=== PATIENT | female | born 1950 | race Caucasian/White ===

== ENCOUNTER 2024-09-25 09:53 | Emergency (ER) | payer MEDICARE, SELFPAY ==
--- OUTSIDE RECORDS SUMMARY | 2024-09-25 10:02 | XMS_ITS | CONTINUITY OF CARE DOCUMENT ---
Author Name shirley watson Address Unknown Organization [facility] Address [id number] [place] [address] [address] [place] [address] Phone [phone] Care Team Providers Care Hereditary Cancer Program Coordinator Name Role Phone Kisha Mandel MD Unavailable [phone] Jaylin Simpson MD Unavailable Jaylin Simpson MD Unavailable [phone] PROBLEMS Condition Status Date Provider Notes PVD active Candy Maria De Jesus Dyslipidemia active Candy Maria De Jesus Hypertension active Candy Maria De Jesus Chest pain active Kisha Mandel MD Tobacco abuse active Kisha Mandel MD Abnormal stress nuclear scan active Aram Mandel MD SOB active Kisha Mandel MD Family History of Hypertension: active ? Tosha Mandel MD ENCOUNTERS Date Type Provider Location Encounter Diag nosis - In-person encounter Office Visit Kisha Mandel MD [facility] Chest pain - In-person encounter Office Visit Kisha Mandel MD [facility] Family History of Hypertension:SOBAbno rmal stress nuclear scanTobacco abuse VITAL SIGNS Date Observation Value Provider Body Mass Index (Ratio) 25.60 kg/m2 Tosha Mandel MD blood pressure, diastolic 70 mm[Hg] Sushma Garza blood pressure, systolic 166 mm[Hg] Naya Garza oxygen saturation, oximetry 94 % Janae Garza respiratory rate E&M 20 /min Glory Garza pulse rate 72 /min Janae toussaint weight E&M 140 [lb_av] Janae toussaint height E&M 62 [in_i] Janae toussaint blood pressure, diastolic, left arm 70 mm [Hg] Sendy O'Brent blood pressure, systolic, left arm 140 mm [Hg] Sendy [facility] blood pressure, diastolic, right arm 70 m m[Hg] Sendy [facility] blood pressure, systolic, right arm 120 m m[Hg] Sendy O'[facility]rent blood pressure, diastolic 70 mm[Hg] [facility] [place] blood pressure, systolic 140 mm[Hg] Naya [facility] [place] pulse rate 74 /min Sendy O'[facility] oxygen saturation, oximetry 97 % Sendy O'[facility] respiratory rate E&M 16 /min Sendy O'[facility] Body Mass Index (Ratio) 25.79 kg/m2 [facility] O'[place] weight E&M 141 [lb_av] [facility]y [place] height E&M 62 [in_i] [facility]y [facility] ALLERGIES Allergy Name Onset Date Reaction Criticality Status ANCEF Low Criticality active DEMEROL Low Criticality active HISTORY OF MEDICATION USE Medication Status Instructions Dates Provider Indications Com ments RANEXA 500 MG ORAL TABLET EXTENDED RELEASE 12 HOUR active ONE TAB. TWICE DAILY for chronic angina Kisha Mandel MD NITROSTAT 0.4 MG SUBLINGUAL TABLET SUBLINGUAL active one tab prn Kisha Mandel MD SYMBICORT 160-4.5 MCG/ACT INHALATION AEROSOL active 1 puff twice daily Sendy O'[facility]rent CRANBERRY CAPSULE active once daily Sendy [facility] VENTOLIN HFA 108 (90 Base) MCG/ACT INHALATION AEROSOL SOLUTION active 2 puffs every 4-6 hours Sendy [facility] CLONAZEPAM 1 MG ORAL TABLET active 1.5 mg at bedtime Sendy [facility] METAXALONE TABLET active four times daily Sendy [facility]ta'N eal ASPIRIN ADULT LOW DOSE 81 MG ORAL TABLET DELAYED RELEASE active One Tab By Mouth Daily [facility]y [facility] METHOTREXATE 2.5 MG ORAL TABLET active five tab every saturday [facility] MORPHINE SULFATE 15 MG ORAL TABLET active twice daily [facility] METOPROLOL TARTRATE 25 MG ORAL TABLET active half tab twice daily Kisha Mandel MD PAROXETINE HCL 20 MG ORAL TABLET active once daily Sendy [place] ATORVASTATIN CALCIUM 20 MG ORAL TABLET active once daily Sendy Oconnor SOCIAL HISTORY Date Observation Value Provider smoking/tobacco cess ation, patient education and counseling yes Kisha Mandel MD social history E&M S moking History: Karol rico currently smokes every day. Karol rico has been counseled to quit. Kisha Mandel MD social history reviewed E&M revi ewed - no changes required Kisha Mandel MD smoking history, tot al pack/day 1 Janae Garza smoking, date started 1964 HermelindaJacek handy Garza smoking history, tot al pack/year 53 Janae Garza cigarette use yes Janae Myers cristy smoking status Current every day smoker Chi Garza smoking history, tot al pack/year 52 Francia Harris RN social history E&M S moking History: Karol rico currently smokes every day. Kisha Mandel MD social history reviewed E&M revi ewed - no changes required Kisha Mandel MD smoking, date started 1965 Sendy Oconnor cigarette use yes Sendy [place]'Brent smoking status Current every day smoker Chi Oconnor FAMILY HISTORY Family Member Condition Full Sister Family History Sharlene skaggs Cancer: Mother Family History of Hy pertension: INSURANCE PROVIDERS Payer name Policy type / Coverage type Florina red libertarian ID [facility] [id number] Other [id number] [place] MEDICARE PART B Medicare [id number] ADVANCE DIRECTIVES Name Date DISCUSSED - NO DECISION MADE TREATMENT PLAN Date Name Performer Cardiology:Advised t o stop smoking. Kisha Mandel MD Cardiology:As per jennifer méndez, she has a left illiac stenosis. She had a previous stent placed with in stent stenosis as well as 40% stenosis to the right illiac. Had fempop bypass done approximately 6 months ago and denies of any symptoms of claudication. She still smokes. Kisha Mandel MD Cardiology:Continues on Atorvastatin. Kisha Mandel MD Cardiology:BP today: 166/70 P rior BP: 140/70 (02/10/2016) M etoprolol tartrate 25 mg one tab daily changed to 1/2 tab twice daily. Kisha Mandel MD Cardiology:She exper iences left sided chest pains intermittently which usually resolves. I have given her a nitro to use when she experiences these symptoms and I have also given her Ranexa 500 mg po twice a day to see if this prevents her from having chest pains. She did have a stress test which did show a small area of reversible apical ischemia. If she continues to have symptoms we will arrange for her to have a cardiac cath. Kisha Mandel MD Cardiology:Advised to stop smoki ng. Kisha Mandel MD Cardiology:As per jennifer méndez, she has a left illiac stenosis. She had a previous stent placed with in stent stenosis as well as 40% stenosis to the right illiac. Surgery for PVD is planned. Kisha Mandel MD Cardiology:Blood pressure contro l is satisfactory. Kisha Mandel MD Cardiology:Likely COPD from long standing tobacco abuse. Kisha Mandel MD Cardiology:Continues on Atorvast atin. Kisha Mandel MD Cardiology:The patie nt is planned to undergo fempop bypass surgery. As part of risk stratification, she underwent a stress test which shows a small apical reverisble ischemia. The cardiac cath was discussed with this patient. The option of undergoing surgery with the knowledge that the stress test is abnormal and the risk is going to be higher was also discussed. She is going to make a decision and let us know. If she opts for cardiac cath, this will be arranged. The risks and benefits of the procedure, including but not limited the risk of heart attack, , stroke, bleeding, kidney failure, and loss of limb as well as the alternative of continued medical therapy, stress testing or bypass surgery were discussed with the patient and any present family members and the patient wishes to proceed with cardiac cath and stenting. The patient and family had opportunity to discuss this with us. Written material including informed consent was given out. Kisha Mandel MD HISTORY OF PROCEDURES Procedure Date Procedure Name Provider Procedure Notes S tatus EKG Kisha Mandel MD complet ed SNOMED-CT: 181843209709434 Current Medications Documented Kisha Mandel MD completed SNOMED-CT: 48618939 Physical Exam, Performed: Pulse Exam of Foot Kisha Mandel MD completed EKG Kisha Mandel MD complet ed SNOMED-CT: [id number] Current Medications Documented Kisha Mandel MD completed Stress EKG Juarez Morales MD completed Regadenoson, 4 units Juarez Morales MD completed Cardiolite, 2 units Juarez Morales MD completed SPECT Images Juarez Morales MD completed
[2024-09-25 10:06] VITALS: BP 146/59; PULSE 82; RESP 18; TEMP 36.6; O2SAT 100
--- NOTE | 2024-09-25 10:06 | ED.EAR ---
HPI - Ear Problem General Chief complaint: Ear Stated complaint: ear ache/sinus Time Seen by Provider: 09/25/24 10:07 Source: patient and RN notes reviewed Mode of arrival: ambulatory Limitations: no limitations History of Present Illness HPI Narrative: 74-year-old female presents concern for intermittent sinus congestion, ear pain, and postnasal drip, cough, headache for several months. Reports it has gotten worse in the last 4-5 days. She has been taking antihistamines without relief. She has history of COPD, she has not needed her inhaler any more than usual. She denies fever, body aches, chills, sweats. MD Complaint: ear pain Related Data Home Medications ?Medication ?Instructions ?Recorded ?Confirmed ?Last Taken ?Type albuterol sulfate 90 mcg/actuation inhalation 09/25/24 Unknown History aerosol inhaler amlodipine 10 mg tablet mg 09/25/24 Unknown History aspirin 325 mg capsule 325 mg PO DAILY 09/25/24 Unknown History atorvastatin 80 mg tablet mg 09/25/24 Unknown History budesonide 160 mcg-glycopyr 9 inh inhalation 09/25/24 Unknown History mcg-formot 4.8 mcg/actuation HFA inhaler (Breztri Aerosphere) cephalexin 250 mg capsule mg 09/25/24 Unknown History escitalopram oxalate 10 mg tablet mg 09/25/24 Unknown History ferrous sulfate 325 mg (65 mg mg 09/25/24 Unknown History iron) tablet gabapentin 100 mg capsule mg 09/25/24 Unknown History lisinopril 10 mg tablet mg 09/25/24 Unknown History omeprazole 40 mg capsule,delayed mg 09/25/24 Unknown History release oxybutynin chloride 5 mg tablet mg 09/25/24 Unknown History tizanidine 4 mg tablet mg 09/25/24 Unknown History trazodone 50 mg tablet mg 09/25/24 Unknown History Allergies Allergy/AdvReac Type Severity Reaction Status Date / Time meperidine (From Demerol) Allergy Unknown Unknown Verified 09/25/24 10:17 varenicline (From Chantix) Allergy Unknown Hallucinati Verified 09/25/24 10:17 ng Review of Systems Review of Systems: CONSTITUTIONAL: Denies malaise, chills, sweats, or fever. EYES: Denies visual changes, redness, or discharge. ENT: Reports rhinorrhea, congestion. Reports right ear pain CARDIOVASCULAR: Denies chest pain, palpitations, or edema. RESPIRATORY: Reports cough. Denies dyspnea. GASTROINTESTINAL: Denies abdominal pain, nausea, vomiting, diarrhea SKIN: Denies rash or itching. MUSCULOSKELETAL: Denies myalgia. NEUROLOGIC: Denies headache. All systems reviewed & are unremarkable except as noted in HPI and below PMFSH Comments At time of signature, agree with nursing past medical, surgical, social and family history. There is no relevant family history pertinent to the presenting complaint Exam Narrative: GENERAL: Well-appearing, well-nourished, and in no acute distress. HEAD: Normocephalic EYES: PERRLA, conjunctivae clear ENT: Nares clear, turbinates edematous, clear discharge. Mucous membranes moist. TM pearly ward with dull light reflex bilaterally; no tragal tenderness. Oropharynx not erythematous without lesions. Tonsils not enlarged and without exudate, no drooling, no hoarseness, no trismus, uvula midline. NECK: Supple. No lymphadenopathy CHEST: Clear to auscultation, breath sounds equal. No wheezing, rhonchi, rales, or stridor. No respiratory distress, speaks in full sentences. HEART: Regular rate and rhythm. No murmur heard. SKIN: Warm, dry, no rash. NEURO: Alert and oriented x3. PSYCH: Normal mood and affect Course Course Emergency Course: Patient is aware of diagnosis, understands and agrees to treatment plan. Anticipatory guidance given. Patient agrees to follow-up as directed and is aware of reasons to seek care at the emergency department. Portions of this record may have been created with voice recognition software Level of Care: Express Care Visit Vital Signs Vital signs: Reviewed. Medical Decision Making [facility] Narrative Medical decision making narrative: I evaluated this in the express care. History is obtained from patient who is an independent historian and physical exam was performed.? Available medical records were reviewed. ? Exam findings and relevant testing show no acute concerns or changes; patient is non-toxic appearing and is in no distress. Differential diagnosis considered: Archuleta virus, strep pharyngitis, allergic rhinitis, upper respiratory tract infection, sinusitis, rhinosinusitis, nasopharyngitis. viral pharyngitis, otitis media, otitis externa, otitis effusion, cerumen impaction, foreign body. Exam findings show no acute concerns or changes; patient is non-toxic appearing and is in no distress. Patient is appropriate for outpatient treatment and follow-up. ? Differential diagnosis and treatment plan were discussed with the patient. Patient agrees with discussion and after shared medical decision making agrees with plan of care. All questions were answered to the patient's satisfaction. Patient is appropriate for outpatient treatment and follow-up. Critical Care Time Critical Care Time Critical Care Time: No Discharge Plan Discharge Clinical Impression: Sinusitis Patient Disposition: Home Condition: Stable Instructions: Antibiotic Form, Sinusitis (ED) Additional Instructions: Take medication as directed Nonprescription pain medications, such as acetaminophen (eg, Tylenol) or ibuprofen (eg, Motrin, Advil), are recommended for pain. Flushing the nose and sinuses with a saline solution several times per day has been proven to decrease pain associated with congestion and shorten the duration of symptoms. Nasal steroids (such as Flonase, 2 sprays in each nostril daily) can help to reduce swelling inside the nose, usually within two to three days. These drugs have few side effects and relieve symptoms in most people. Oral decongestants (pseudoephedrine and phenylephrine) may be helpful if you have associated symptoms of ear pain or fullness. Nasal decongestant sprays, including oxymetazoline (Afrin) and phenylephrine (Rolly-Synephrine), can be used to temporarily treat congestion. However, these sprays should not be used for more than two to three days due to the risk of rebound congestion (when the nose becomes congested constantly unless the medication is used repeatedly), possible addiction, and long-term consequences of frequent use, including persistent nasal dryness and crusting, which is very difficult to treat once it has developed. Medications to thin secretions (such as guaifenesin) may help to clear mucus. Please follow-up with your primary care doctor in the next 1-2 days. If you cannot follow-up with your primary care doctor please go to the ED for any urgent issues. If you have any worsening of symptoms or any other concerns please go to the ED immediately. Patient Language: Albanian Prescriptions: New methylprednisolone [Medrol (Koffi)] 4 mg tablets,dose pack See Rx Instructions .ROUTE .COMPLEX Qty: 21 0RF Rx Instructions: orally per package directions amoxicillin-pot clavulanate 875-125 mg tablet 1 tablet PO Q12H 10 Days Qty: 20 0RF No Action atorvastatin 80 mg tablet trazodone 50 mg tablet tizanidine 4 mg tablet cephalexin 250 mg capsule omeprazole 40 mg capsule,delayed release(DR/EC) amlodipine 10 mg tablet ferrous sulfate 325 mg (65 mg iron) tablet lisinopril 10 mg tablet gabapentin 100 mg capsule albuterol sulfate 90 mcg/actuation HFA aerosol inhaler INHALATION oxybutynin chloride 5 mg tablet escitalopram oxalate 10 mg tablet Breztri Aerosphere 160-9-4.8 mcg/actuation HFA aerosol inhaler INHALATION aspirin 325 mg capsule 325 mg PO DAILY Follow-up/Referrals: Soledad,Ravindra Aguilar MD [Primary Care Provider] - Time of Disposition: 10:48
--- OUTSIDE RECORDS SUMMARY | 2024-09-25 10:07 | XMS_ITS | CONTINUITY OF CARE DOCUMENT ---
Author Name shirley watson Address Unknown Organization [facility] Address [address] [place] [address] [address] [place] [address] Phone [phone] Care Team Providers Care Electronic Security Specialist Name Role Phone Kisha Mandel MD Unavailable Jaylin Simpson MD Unavailable [phone] Jaylin Simpson MD Unavailable [phone] PROBLEMS Condition Status Date Provider Notes PVD active Candy Maria De Jesus Dyslipidemia active Candy Maria De Jesus Hypertension active Candy Maria De Jesus Family History of Hypertension: active ? Tosha Mandel MD SOB active Kisha Mandel MD Abnormal stress nuclear scan active Aram Mandel MD Tobacco abuse active Kisha Mandel MD Chest pain active Kisha Mandel MD ENCOUNTERS Date Type Provider Location Encounter Diag nosis - In-person encounter Office Visit Kisha Mandel MD [facility] Chest pain - In-person encounter Office Visit Kisha Mandel MD [facility] Family History of Hypertension:SOBAbno rmal stress [...] Sendy O'[facility]rent blood pressure, diastolic 70 mm[Hg] [facility] blood pressure, systolic 140 mm[Hg] Naya [facility] O'[place] pulse rate 74 /min Sendy O'[facility]rent oxygen saturation, oximetry 97 % Sendy O'[facility] respiratory rate E&M 16 /min Sendy O'[facility] Body Mass Index (Ratio) 25.79 kg/m2 [facility] O'[place] weight E&M 141 [lb_av] Sendy O'Brent [...] Policy type / Coverage type Florina red constitution party ID [facility] [id number] Other [id number] [place] MEDICARE PART B Medicare [id number] ADVANCE DIRECTIVES Name Date DISCUSSED - NO [...] Provider Procedure Notes S tatus EKG Kisha Mnadel MD complet ed SNOMED-CT: [id number] Current Medications Documented Kisha Mandel MD completed SNOMED-CT: [id number] Physical Exam, Performed: Pulse Exam of Foot Kisha Mandel MD completed EKG Kisha Mandel MD complet ed SNOMED-CT: [id number] Current Medications Documented Kisha Mandel MD completed Stress EKG Juarez Morales MD completed Regadenoson, 4 units Juarez Morales MD completed Cardiolite, 2 units Juarez Morales MD completed SPECT Images Juarez Morales MD completed
--- OUTSIDE RECORDS SUMMARY | 2024-09-25 10:07 | XMS_ITS | Encounter Summary ---
Author Organization [facility] Healthcare Address [address] [place] [address] Care Team Providers Care Adjusto Writer Operator Name Role Phone Ravindra Rowe MD Primary Care Provider Darrion Griffith MD Unavailable Ronen Nunes MD Unavailable [phone] Liza Major NP Unavailable [phone] Juarez Pulido MD Unavailable [phone] Shane Hays MD Unavailable [phone] Migue Reid MD Unavailable [phone] Carlos Amaya MD Unavailable Carine Khan RN Unavailable Sophy Bravo CMA Unavailable [phone] Sujata Noonan MA Unavailable Cintia Carroll RN Unavailable Thao Abdullahi MA Unavailable Fiorella Oscar MD Unavailable [phone] Encounter Details Date Type Department Care Team (Late st Contact Info) Description 07/15/2020 Telephone [facility] [address] [place] [address] [place], [place] Social History Tobacco Use Types Packs/Day Years Used Date Smoking Tobacco: Heavy Smoker Cigarettes 1.5 50 Smokeless Tobacco: Never Comments:Smoking History Pac ks/day: 1 Packs,, pmd, TO ASSIST. Alcohol Use Standard Drinks/Week Comments No 0 (1 standard drink = 0.6 oz pur e alcohol) Social Connection and Isolat ion Panel [NHANES] Answer Date Recorded In a typical week, how many times do you talk on the phone with family, friends, or neighbors? More than three times a week 02/05/2020 How often do you get togethe r with friends or relatives? More than three times a week 02/05/2020 Attends [employer] Services Not on file 02/04 Active Member of Clubs or Organizations Not on f ile 02/05/2020 Attends Club or Organization Meetings Not on rd e 02/05/2020 Are you , , di vorced, , never , or living with a partner? 02/05/2020 Overall Financial Resource Strain (CARDIA) Answe r Date Recorded How hard is it for you to pa y for the very basics like food, housing, medical care, and heating? Somewhat hard 02/05/2020 PHQ-2 Answer Date Recorded PHQ-2 Total Score (If total score is 3 or more points, staff should administer the PHQ-9) 6 07/15/2020 [facility] - Occupational Stress Questionnaire Answer Date Recorded Do you feel stress - tense, restless, nervous, or anxious, or unable to sleep at night because your mind is troubled all the time - these days? Rather much 02/05/2020 Exercise Vital Sign Answer Date Recorde d On average, how many days pe r week do you engage in moderate to strenuous exercise (like a brisk walk)? 0 days Minutes of Exercise per Session Not on file 02/05/2020 Hunger Vital Sign Answer Date Recorded Within the past 12 months, y ou worried that your food would run out before you got the money to buy more. Never true 02/05/20 20 Within the past 12 months, t he food you bought just didn't last and you didn't have money to get more. Never true 02/05/2020 PRAPARE - Transportation Answer Date Re corded In the past 12 months, has l ack of transportation kept you from medical appointments or from getting medications? No 01/18 In the past 12 months, has l ack of transportation kept you from meetings, work, or from getting things needed for daily living? No 02/05/2020 Education Answer Date Recorded What is the highest level of school you have completed or the highest degree you have received? 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 file Not on file documented as of this encounter Plan of Treatment Not on file documented as of this encounter Visit Diagnoses Not on filedocumented in this encounter Additional Health Concerns Infection Onset Date Last Indicated Resolved Time COVID: Suspected 02/15/2023 02/16/2023 02/16/2023 1:17 AM CDT COVID: Suspected 02/20/2023 02/20/2023 02/20/2023 8:33 PM CDT documented as of this encounter Care Teams Adjusto Writer Operator Relationship Specialty Start Date End Date Ravindra Rowe MD PCP - General Family Medicine 11/14/16 [place] [address] [place] [address] Surgeon General Surgery 09/30/17 [place] [address] [place] [address] Consulting Physician Cardiology 06/24/18 Liza Major, LESLEY [address] [place] [address] Nurse Practitioner Nurse Practitioner 07/08/18 [place] [address] [place] [address] Consulting Physician Cardiovascular Disease 07/28/18 Shane Hays MD [address] [facility] [address] [place] [address] Consulting Physician Rheumatology 02/18/19 12/31/23 Migue Reid MD [address] [facility] [address] [place] [address] Consulting Physician Urology 03/16/20 Carlos Amaya MD [address] [facility] [address] [place] [address] Consulting Physician Nephrology 03/16/20 Carine Khan RN [address] [place] [address] [address] [place] [address] Range Management Specialist 09/28/20 10/24/20 Sophy Bravo CMA [address] [place] [address] [address] [place] [address] ACO Care Sole Conforming Machine Operator 02/20/23 02/20/23 Sujata Noonan MA [address] [place] [address] [address] [place] [address] ACO Care Sole Conforming Machine Operator 10/21/23 10/23/23 Cintia Carroll RN [address] [place] [address] [address] [place] [address] Range Management Specialist 01/14/24 02/13/24 Thao Abdullahi MA [address] [place] [address] [address] [place] [address] ACO Care Sole Conforming Machine Operator 03/16/24 03/17/24 [place] [address] [phone] Referring Physician Preparation Center Coordinator 04/20/24 documented as of this encounter
--- OUTSIDE RECORDS SUMMARY | 2024-09-25 10:07 | XMS_ITS | Clinical Summary ---
Author Organization [facility] Address [address] [place] [address] Care Team Providers Care Retail Selling Specialist Name Role Phone Phil Guerra MD Unavailable [phone] Edmund Buenrostro MD Unavailable [phone] Jeremie Tyson MD Unavailable [phone] Janine Watkins RN Unavailable [phone] Ravindra Rowe MD Primary Care Provider [phone] Source Comments [facility],non-owned Affiliates and Associated Physician Practices is amultiple site organization consisting of ambulatory clinics and hospital sitesin [place], [place], [place] and [place]. This disclosure is being madepursuant to the Care Everywhere program and may not contain all information available regarding this patient. Last updated 18.[facility] Allergies Active Allergy Reactions Criticality Noted Date Comments Cefazolin 12/22/2014 Meperidine Shortness of Breath High 12/22/2014 Per respiratory arrest Duloxetine Other,Rash Medium 04/04/2020 Tolerates SSRI Leflunomide Medium 10/25/2015 Varenicline Other Medium 09/28/2021 Hallucinations Medications * Be aware that medications may not be up to date on this document. Alwaysverify current medications with the patient. clonazePAM (KLONOPIN) 1 MG tablet Take 1.5 Tabs by mouth at bedtime 45 Tab 2 5 Active Acetaminophen- Codeine (TYLENOL WITH CODEINE #3 PO) Take by mouth 4 times daily as needed after meals/at bedtime Active Cranberry 600 MG Take 600 mg by mouth 2 times daily as needed Active PARoxetine (PAXIL) 20 MG tabletIndicati ons:PVD (peripheral vascular disease),Histo ry of TIA (transient ischemic attack) Take 2 (two) tablets by mouth at bedtime 6 Active methotrexate 2.5 MG tabletIndicati ons:PVD (peripheral vascular disease),Histo ry of TIA (transient ischemic attack) Take 6 (six) tablets by mouth every 7 days Every 7 days 6 Active Albuterol Sulfate (VENTOLIN HFA IN) Inhale 1 Puff by mouth every 6 hours as needed (SOB) Active HYDROcodone-ac etaminophen (NORCO) 5-325 MG tablet Take 1 Tab by mouth every 4 hours as needed for Pain 30 Tab 0 6 Active aspirin (ASPIRIN) 325 MG tablet Take 1 (one) tablet by mouth once daily Active TRAZODONE HCL PO Take 25 mg by mouth once daily 8 Active amLODIPine (NORVASC) 10 MG tablet Take 1 (one) tablet by mouth once daily 2 Active atorvastatin (LIPITOR) 80 MG tablet Take 1 (one) tablet by mouth at bedtime 2 Active cephalexin (KEFLEX) 250 MG capsule Take 1 (one) capsule by mouth once daily 2 Active estradiol (ESTRACE) 0.1 MG/GM vaginal cream INSERT 0.5 G INTO THE VAGINA 2 TIMES A WEEK . 2 Active BREO ELLIPTA 100-25 MCG/INH inhaler INHALE 1 PUFF DAILY RINSE MOUTH WITH WATER AFTER USE. DO NOT SWALLOW. 1 Active lisinopril (PRINIVIL; ZESTRIL) 20 MG tablet Take 1 (one) tablet by mouth once daily 2 Active nitroGLYCERIN (NITROSTAT) 0.4 MG tablet 1 Active oxybutynin (DITROPAN) 5 MG tablet Take 1 (one) tablet by mouth 2 times daily 2 Active predniSONE (DELTASONE) 5 MG tablet Take 2 (two) tablets by mouth as needed 2 Active rOPINIRole (REQUIP) 0.5 MG tablet Take 1 (one) tablet by mouth at bedtime 2 Active abatacept (ORENCIA) IV injection 250 (two hundred fifty) mg by Intravenous route every 30 days Active ferrous sulfate 325 (65 FE) MG tablet Take 1 (one) tablet by mouth daily with breakfast 4 Active escitalopram (Lexapro) 10 MG tablet Take 1 (one) tablet by mouth once daily 4 Active nystatin (Mycostatin) 513126 UNIT/ML suspension TAKE 5 ML (500,000 UNITS TOTAL) BY MOUTH 4 (FOUR) TIMES A DAY SWISH IN MOUTH AND SPIT OUT. 4 Active omeprazole (PriLOSEC) 40 MG capsule Take 1 (one) capsule by mouth once daily 4 Active tiZANidine (Zanaflex) 4 MG tablet TAKE 1 TABLET (4 MG TOTAL) BY MOUTH EVERY 8 (EIGHT) HOURS NEEDED FOR MUSCLE SPASMS 4 Active tocilizumab (Actemra) 162 MG/0.9ML auto-injector Inject 0.9 mL subcutaneously every 14 days 1.8 mL 2 4 Active Active Problems Problem Noted Date Diagnosed Date Stenosis of right carotid artery 07/24/2018 PVD (peripheral vascular disease) 10/25/2015 Hypokalemia 05/04/2015 Pulmonary infiltrate in left lung on chest x-ray 02/10/2015 Shortness of breath 02/02/2015 RA (rheumatoid arthritis) 11/02/2014 Fibromyalgia 11/02/2014 High risk medications (not anticoagulants) long- term use 11/02/2014 COPD with asthma Arthritis Smoker Resolved Problems Problem Noted Date Diagnosed Date Resolved Date Cough 02/02/2015 03/02/2015 Immunizations Immunization Administration Dates Next Due COVID BATOOL PRIMARY 18+YR 07/23/2020 Covid Pfizer primary monovalent 12+ yr 0.3mL Pur ple cap 03/25/2021 FLU VACCINE QUAD IIV4 PF ID 04/18/2015 Family History Medical History Relation Name Comments Arthritis - Osteo Brother Asthma Brother Brain Tumor Brother Cancer - Lung Brother Arthritis - Osteo Father Cancer Father Hypertension Father Arthritis - Osteo Mother Asthma Mother Cancer Mother Hypertension Mother Arthritis - Osteo Sister Fibromyalgia Sister Relation Name Status Comments Brother Father Mother Sister Alive Social History Tobacco Use Types Packs/Day Years Used Date Smoking Tobacco: Every Day Cigarettes 1 45.8 Started: 05/03/1970; Last attempted to quit: 02/22/2016 Smokeless Tobacco: Never Tobacco Cessation:Ready to Q uit: Not Asked; Counseling Given: Not Answered Alcohol Use Standard Drinks/Week Comments No 0 (1 standard drink = 0.6 oz pur e alcohol) PHQ-2 Answer Date Recorded Patient Health Questionnaire-2 Score 0 03/25/2024 Comments No Sex and Gender Information Value Date Recorded Sex Assigned at Not on file Legal Sex Female 11:42 AM CDT Gender Identity Not on file Sexual Orientation Not on file Occupation Industry Job Start Date Job End Date Disabled Not on file Not on file Not on file Last Filed Vital Signs Vital Sign Reading Time Taken Comments Blood Pressure 140/70 03/25/2024 11:49 AM WELFARE ELIGIBILITY INTERVIEWER Pulse 74 03/25/2024 11:49 AM WELFARE ELIGIBILITY INTERVIEWER Temperature 36.7 C (98 F) 12/15/2019 1:09 PM CDT Respiratory Rate 24 12/15/2019 2:31 PM CDT Oxygen Saturation 97% 03/25/2024 11:49 AM WELFARE ELIGIBILITY INTERVIEWER Inhaled Oxygen Concentration 21% 04/30/2015 5 :26 PM WELFARE ELIGIBILITY INTERVIEWER Weight 47.2 kg (104 lb) 03/25/2024 11:49 AM WELFARE ELIGIBILITY INTERVIEWER Height 157.5 cm (5' 2 ) 03/25/2024 11:49 AM WELFARE ELIGIBILITY INTERVIEWER Body Mass Index 19.02 03/25/2024 11:49 AM WELFARE ELIGIBILITY INTERVIEWER Plan of Treatment Health Maintenance Due Date Last Done Comments COLOGUARD (AGES 45-75) - COLON CA SCREENING [address] COLONOGRAPHY - COLON CA SCREENING 1950 FIT - COLON CA SCREENING 1950 FLEX SIG - COLON CA SCREENING 1950 DTAP/TDAP/TD VACCINES (1 - Tdap) 1970 PNEUMOCOCCAL VACCINE 50+ (1 of 2 - PCV) 1970 ZOSTER VACCINE (1 of 2) 1970 Respiratory Syncytial Virus (RSV) Vaccine Pt: or over 60 yrs (1 - Risk 60-74 years 1-dose series) 2011 COVID-19 VACCINE (3 - season) 2024 03/25/2021, 07/23/2020 DEPRESSION SCREENING 05/20/2024 03/25/2024 MEDICARE AWV CALENDAR YEAR 2024 INFLUENZA VACCINE (Season Ended) 2025 02/18/2019, 05/23/2017, 04/18/2015, Additional history exists LUNG CANCER SCREENING 03/05/2025 03/05/2024 , 01/16/2023, 02/17/2021, Additional history exists MAMMOGRAM 03/05/2026 03/05/2024, 02/17, 10/31/2021, Additional history exists COLONOSCOPY - COLON CA SCREENING 10/12/2032 10/12/2022 Colorectal Cancer Screening 10/12/2032 BONE DENSITY TESTING Completed 03/05/2024, 01/01/2022, 07/19/2017, Additional history exists HEPATITIS C SCREENING Completed 04/01/2024 HEPATITIS B VACCINE Aged Out No longe r eligible based on patient's age to complete this topic HIB VACCINE Aged Out No longer eligi ble based on patient's age to complete this topic HPV VACCINE Aged Out No longer eligi ble based on patient's age to complete this topic MENINGOCOCCAL (Group B) VACCINE SHARED DECISION-MAKING Aged Out No longer eligible based on patient's age to complete this topic MENINGOCOCCAL GROUPS A/C/Y/W VACCINE Aged Out No longer eligible based on patient's age to complete this topic Medical Devices Implanted Type Area Trauma Director Device Identifier Shelf Expiration Date Model / Serial / Lot Stent Hep Cov .018in 6.0mm X 10mm - [id number] Implanted:Qty: 1 on 04/29/2015 by Darrion Griffith MD at [facility] Left: [employer] [id number] / [id number] / Grft Vasc Dbl Urbano Bifur 16-8mm 40cm - [id number] Implanted:Qty: 1 on 02/22/2016 by Darrion Griffith MD at [facility] Aorta Maquet 02/17/2020 [id number] / [id number] / Procedures Procedure Name Priority Date/Time Associated Diagnosis Comments HEPATITIS SCREEN ACUTE Routine 04/01/2024 10:53 AM WELFARE ELIGIBILITY INTERVIEWER Rheumatoid arthritis of multiple sites without rheumatoid factor Polyarthralgia [place] Vitamin D deficiency High risk medication use Immunosuppressed status Osteopenia of multiple sites from Last 3 Months or Most Recently Relevant to Health Maintenance Results * HEPATITIS SCREEN ACUTE (04/01/2024 10:53 AM WELFARE ELIGIBILITY INTERVIEWER) Hepatitis A Virus Antibody IgM NON-REACTI VE NON-REACT [facility] Comment: For additional information, please refer to http://[employer]/faq/EYU181 (This link is being provided for informational/ educational purposes only.) Hepatitis B Virus Surface Antigen NON-REACTI VE NON-REACT B[facility]CA [facility] Comment: For additional information, please refer to http://[employer]/faq/ULU785 (This link is being provided for informational/ educational purposes only.) Hepatitis B Core Virus Antibody IgM NON-REACTI VE NON-REACT [facility] Comment: For additional information, please refer to http://[employer]/faq/ODD542 (This link is being provided for informational/ educational purposes only.) Hepatitis C Antibody NON-REACTI VE NON-REACT [facility] Comment: HCV antibody was non-reactive. There is no laboratory evidence of HCV infection. In most cases, no further action is required. However, if recent HCV exposure is suspected, a test for HCV RNA (test code 99830) is suggested. For additional information please refer to http://[employer]/faq/LGJ75h9 (This link is being provided for informational/ educational purposes only.) Test Performed at: [employer] [facility] [address] [place] [address] GELACIO HUANG MD Blood BLOOD SPECIMEN / Unknown 04/01/2024 10:53 AM WELFARE ELIGIBILITY INTERVIEWER 04/01/2024 10:53 AM WELFARE ELIGIBILITY INTERVIEWER Fiorella Oscar MD LAB - CHEMISTRY ORDERABLES Isabela kelly Result [facility] [address] [place] [address] from Last 3 Months or Most Recently Relevant to Health Maintenance Insurance [employer] MEDICARE ADV Advance Directives * Full Code (Latest Code Status on File) Date Activated Date Inactivated Comments 02/22/2016 6:51 PM 02/27/2016 1:06 PM * Full Code Date Activated Date Inactivated Comments 05/03/2015 4:44 PM 05/04/2015 2:31 PM * Full Code Date Activated Date Inactivated Comments 04/29/2015 6:46 PM 04/30/2015 9:08 PM Care Teams Retail Selling Specialist Relationship Specialty Start Date End Date Ravindra Rowe MD PCP - General Family Medicine 07/02/17 Phil Guerra MD Neurology 11/02/14 Edmund Buenrostro MD [address] [id number] Orthopedic Surgery 11/02/14 [place] [address] [address] Pulmonary Disease 04/18/15 Janine Watkins, ISHA Cpas 05/04/15
--- OUTSIDE RECORDS SUMMARY | 2024-09-25 10:07 | XMS_ITS | Encounter Summary ---
Author Organization [facility] Healthcare Address [address] [place] [address] Care Team Providers Care Pie Bottomer Name Role Phone Ravindra Rowe MD Primary Care Provider [phone] Darrion Griffith MD Unavailable [phone] Ronen Nunes MD Unavailable [phone] Liza Major NP Unavailable [phone] Juarez Pulido MD Unavailable [phone] Migue Reid MD Unavailable [phone] Carlos Amaya MD Unavailable [phone] Fiorella Oscar MD Unavailable [phone] Encounter Details Date Type Department Care Team (Late st Contact Info) Description 03/18/[address] [place] [address] Melissa Brown, RN Social History Tobacco Use Types Packs/Day Years Used Date Smoking Tobacco: Every Day Cigarettes 1.5 59.8 Started: 11/21/1964 Smokeless Tobacco: Never Comments:Smoking History Pac ks/day: 1 1/2 Pack/day. Quit 04/2021, resumed 03/2022 Alcohol Use Standard Drinks/Week Comments No 0 (1 standard drink = 0.6 oz pur e alcohol) [facility] Utilities Answer Date Recorded In the past 12 months has th e [employer], gas, oil, or water company threatened to shut off services in your home? No 03/13/2024 Humiliation, Afraid, Rape, and Kick questionnair e Answer Date Recorded Within the last year, have y ou been afraid of your partner or ex-partner? No 02/06/2021 Within the last year, have y ou been humiliated or emotionally abused in other ways by your partner or ex-partner? No Within the last year, have y ou been kicked, hit, slapped, or otherwise physically hurt by your partner or ex-partner? No 02/06/2021 Within the last year, have y ou been raped or forced to have any kind of sexual activity by your partner or ex-partner? No 02/06/2021 Social Connection and Isolat ion Panel [NHANES] Answer Date Recorded In a typical week, how many times do you talk on the phone with family, friends, or neighbors? More than three times a week 03/13/2024 How often do you get togethe r with friends or relatives? Once a week 03/13/2024 How often do you attend chur ch or cheondoism services? More than 4 times per year 03/13/2024 Do you belong to any clubs o r organizations such as evangelical groups, unions, fraternal or athletic groups, or school groups? No 03/13/2024 How often do you attend meet ings of the clubs or organizations you belong to? Never 03/13/2024 Are you , , di vorced, , never , or living with a partner? 03/13/2024 AUDIT-C Answer Date Recorded Q1: How often do you have a drink containing alcohol? Never 03/12/2024 Q2: How many drinks containi ng alcohol do you have on a typical day when you are drinking? Patient does not drink Q3: How often do you have si x or more drinks on one occasion? Never 03/12/2024 Overall Financial Resource Strain (CARDIA) Answe r Date Recorded How hard is it for you to pa y for the very basics like food, housing, medical care, and heating? Somewhat hard 03/13/2024 PHQ-2 Answer Date Recorded PHQ-2 Total Score (If total score is 3 or more points, staff should administer the PHQ-9) 0 01/15/2024 [facility] - Occupational Stress Questionnaire Answer Date [...] you got the money to buy more. Sometimes true Within the past 12 months, t he food you bought just didn't last and you didn't have money to get more. Sometimes true PRAPARE - Transportation Answer Date Re corded In the past 12 months, has l ack of transportation kept you from medical appointments or from getting medications? No 02/18 In the past 12 months, has l ack of transportation kept you from meetings, work, or from getting things needed for daily living? No 03/13/2024 Housing Stability Vital Sign Answer Bryant e Recorded In the last 12 months, was t here a time when you were not able to pay the mortgage or rent on time? No 10/06/2020 In the last 12 months, how many places have you lived? 1 10/06/2020 In the last 12 months, was t here a time when you did not have a steady place to sleep or slept in a long-term (including now)? No 10/06/2020 PHQ-9 Answer Date Recorded PHQ-9 Total Score 1 01/08/2024 Housing Stability Vital Sign Answer Bryant e Recorded In the last 12 months, was t here a time when you were not able to pay the mortgage or rent on time? No 03/13/2024 In the past 12 months, how m any times have you moved where you were living? 0 03/13/2024 At any time in the past 12 m [facility], were you homeless or living in a long-term (including now)? No 03/13/2024 Personal Safety Answer Date Recorded Have you ever been in or are you currently in a harmful physical or emotional relationship or is someone making you feel afraid or unsafe? Denies 03/12/2024 Education Answer Date Recorded What is the highest level of school you have completed or the highest degree you have received? 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 file Not on file documented as of this encounter Plan of Treatment Not on file documented as of this encounter Visit Diagnoses Not on filedocumented in this encounter Care Teams Pie Bottomer Relationship Specialty Start Date End Date Ravindra Rowe MD PCP - General Family Medicine 11/14/16 [place] [address] [place] [id number] Surgeon General Surgery 09/30/17 [place] [address] [place] [address] Consulting Physician Cardiology 06/24/18 Liza Major, LESLEY [address] [place] [address] Nurse Practitioner Nurse Practitioner 07/08/18 [place] [address] [place] [address] Consulting Physician Cardiovascular Disease 07/28/18 [place] [address] [place] [address] Consulting Physician Urology 03/16/20 [place] [address] [place] [address] Consulting Physician Nephrology 03/16/20 [place] [id number] [id number] Referring Physician Bar Roller 04/20/24 documented as of this encounter
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
--- OUTSIDE RECORDS SUMMARY | 2024-09-25 10:08 | XMS_ITS | Clinical Summary ---
Author Organization [facility] Address [address] [place] [address] Care Team Providers Care Mailing Machine Assistant Name Role Phone Ravindra Rowe MD Primary Care Provider [phone] Darrion Griffith MD Unavailable [phone] Ronen Nunes MD Unavailable [phone] Liza Major NP Unavailable [phone] Juarez Pulido MD Unavailable [phone] Migue Reid MD Unavailable [phone] Carlos Amaya MD Unavailable [phone] Fiorella Oscar MD Unavailable [phone] Allergies Active Allergy Reactions Criticality Noted Date Comments Varenicline Hallucinations Medium Reaction: hallucinations, , Duloxetine Nausea only Medium 04/04/2020 Tolerates SSRI Meperidine Shortness of breath High 12/22/2014 Per respiratory arrest Medications ERGOCALCIFEROL, VITAMIN D2, ORAL Take 5,000 Units by mouth daily 01/12/20 17 Active nitroglycerin (NITROSTAT) 0.4 mg SL tabletIndication s:Angina Place 1 tablet (0.4 mg total) under the tongue every 5 (five) minutes as needed for chest pain 1 tablet may be used every 5 minutes as needed, for up to 15 minutes. Do not take more than 3 tablets in 15 minutes. 90 tablet 10/02/19 21 Active aspirin 325 mg tabletIndication s:prevention of thrombosis Take 1 tablet (325 mg total) by mouth daily 30 tablet 11 07/23/19 24 Active calcium carbonate-vitami n D3 1500 mg (600 mg elemental) -200 units per tabletIndication s:Vitamin D Deficiency Take 1 tablet by mouth nightly 600mg with 500 units vitamin d Active docusate sodium (STOOL SOFTENER ORAL) Take 1 tablet by mouth daily Active oxygenIndication s:Dyspnea Inhale 2 L/min as needed (SOB). at hs Indications: trouble breathing Active vitamin B complex capsuleIndicatio ns:Vitamin Deficiency Take 1 capsule by mouth daily Active nystatin 100,000 unit/mL suspension Take 5 mL (500,000 Units total) by mouth 4 (four) times a day as needed (For oral thrush related to inhaler use) 06/12/19 24 Active amLODIPine (NORVASC) 10 mg tabletIndication s:hypertension Take 1 tablet (10 mg total) by mouth daily 90 tablet 1 04/07/20 24 Active atorvastatin (LIPITOR) 80 mg tabletIndication s:hyperlipidemia Take 1 tablet (80 mg total) by mouth nightly 90 tablet 3 04/07/20 24 025 Active budesonide-glyco pyr-formoterol (Breztri Aerosphere) 160-9-4.8 mcg/actuation inhalerIndicatio ns:Bronchospasm Prevention with COPD Inhale 2 puffs 2 (two) times a day 3 each 3 04/07/20 24 025 Active escitalopram (LEXAPRO) 10 mg tabletIndication s:Generalized Anxiety Disorder Take 1 tablet (10 mg total) by mouth daily 90 tablet 3 04/07/20 24 025 Active ferrous sulfate 325 mg (65 mg of elemental iron) tabletIndication s:Iron Deficiency Anemia Take 1 tablet (325 mg total) by mouth daily with breakfast 90 tablet 3 04/07/20 24 025 Active lisinopriL (PRINIVIL,ZESTRI L) 10 mg tabletIndication s:hypertension Take 1 tablet (10 mg total) by mouth daily 90 tablet 3 04/07/20 24 025 Active omeprazole (PriLOSEC) 40 mg capsuleIndicatio ns:Stress Ulcer Prophylaxis Take 1 capsule (40 mg total) by mouth daily 90 capsule 3 04/07/20 24 Active oxyBUTYnin (DITROPAN) 5 mg tabletIndication s:Urinary Urge Incontinence Take 1 tablet (5 mg total) by mouth 2 (two) times a day 180 tablet 2 04/07/20 24 Active Additional Information Patient not taking.Reported on 09/23/2024 tiZANidine (ZANAFLEX) 4 mg tabletIndication s:Muscle Spasm Take 1 tablet (4 mg total) by mouth every 8 (eight) hours as needed for muscle spasms 270 tablet 3 04/07/20 24 Active albuterol HFA (PROVENTIL HFA,VENTOLIN HFA,PROAIR HFA) 90 mcg/actuation inhalerIndicatio ns:Chronic Obstructive Pulmonary Disease Inhale 2 puffs every 6 (six) hours as needed for wheezing 3 each 3 04/07/20 24 025 Active predniSONE (DELTASONE) 5 mg tablet Take 1 tablet (5 mg) by mouth daily 30 tablet 1 04/20/20 24 025 Active roflumilast (DALIRESP) 500 mcg tabletIndication s:Prevention of Bronchospasm with Chronic Bronchitis Take 1 tablet (500 mcg total) by mouth daily 90 tablet 3 04/24/20 24 Active cephalexin (KEFLEX) 250 mg capsuleIndicatio ns:Urinary Tract/Genitourin yury Infection TAKE 1 CAPSULE (250 MG TOTAL) BY MOUTH NIGHTLY 90 capsule 07/10/19 25 Active traZODone (DESYREL) 50 mg tabletIndication s:insomnia associated with depression Take 3 tablets (150 mg total) by mouth nightly 08/08/19 25 026 Active gabapentin (NEURONTIN) 100 mg capsuleIndicatio ns:Neuropathic Pain Take 2 capsules (200 mg total) by mouth 3 (three) times a day 180 capsule 11 09/12/19 25 026 Active gabapentin (NEURONTIN) 100 mg capsuleIndicatio ns:Neuropathic Pain Take 2 capsules (200 mg total) by mouth 3 (three) times a day 08/08/19 25 025 Discontin ued(Reord er) Active Problems Problem Noted Date Diagnosed Date S/P aortobifemoral bypass surgery 04/23/2024 Assessment & Plan (09/04/2024 10:51 AM CDT): 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 CTA abdomen pelvis ordered for further evaluation. Assessment & Plan (04/23/2024 2:58 PM PROGRAM DEVELOPMENT MANAGER): Impression: Patient has a history of an aortobifemoral bypass graft performed at an outside facility in 2016. Patient has not had any formal surveillance as seen during chart review. Plan: Recommend aortic duplex with a lower extremity arterial duplex for further evaluation of bypass graft in 6 months. Tremor 03/30/2024 Assessment & Plan (08/14/2024 8:25 AM CDT): Ms. You is a 74 y.o. female who currently presents to our clinic for evaluation of tremors and concern for parkinsonism. Briefly, she has an approximately 1.5 year history of bilateral postural/kinetic tremors, along with voice tremor, progressively worse over time. According to previous notes, the symptoms might be going on for the past six years. Additionally, she also has symptoms of paresthesias involving both feet going up to her mid calf. Our physical examination was remarkable for bilateral postural/kinetic tremors, as well as voice tremor. She has previously exhibited some possible slight ataxia on [id number] with intention tremor and overshoot as well as on heel howard maneuver bilaterally. She describes episodes of large amplitude jerking that are unclear, may represent myoclonus. Though she has had some slowness of movement, I have not appreciated decrement or rigidity and did not appreciate rest tremor today. Her gait appears more related to musculoskeletal contributors rather than shuffling in nature. It is possible that are symptoms are related to essential tremor syndrome or ataxic syndrome, however she also endorses some cognitive changes and mild psychosis that do not fit with ET. There is also some degree of distractibility and entrainment of tremor and an exaggerated and fear response on shoulder tap test which could suggest potential functional neurologic component. She has depression and anxiety that are not well controlled and may confound cognitive impairment. She endorses occasional mild VH with inconsistent reporting. She should stop anticholinergic medications and avoid benzodiazepines and opioids. It is not clear to me that this is related to a neurodegenerative process or psychiatric at this juncture and has reportedly been going for 9-12 months without progression. She is working on establishing with a psychiatrist. NPT today was consistent with mild cognitive impairment. Her history of sinus bradycardia and severe COPD with recurrent exacerbations precludes propranolol use for tremor. At last visit she was not interested in primidone and at that time neuropathy more than tremor was her largest complaint so we proceeded with gabapentin trial. She now relates bothersome nocturnal RLS symptoms (separate from episodes of jerks) with associated urge to move the legs at night. As her gabapentin was just increased to 200 mg TID and she has admitted to using Xanax and Oxycontin without a prescription, we discussed we would make no further medication changes today. I would not recommend adding primidone at this time due to concern for polypharmacy and potential resultant worsening cognition, sedation, or imbalance. Previously, she underwent EMG/NCS which was consistent with neuropathy. She underwent the lab testing that has thus far been unremarkable: KATHAIRNA, SPEP, immunofixation, ESR, A1c, HIV, folate, TSH reflex, CBC, CMP, RPR, and B1. Her B12 was borderline at 339 with MMA wnl. She is now taking a B complex vitamin. She had Vitamin E checked in 2022 and was wnl at 8.9. Recommendations: Consider brain MRI with/without contrast to further evaluate for cerebellar atrophy/pathology Continue same gabapentin 200 mg TID for neuropathy, tremor, RLS - should RLS be of greater concern we can preferentially increase the evening/bedtime dose further Fasting iron studies with transferrin sat and ferritin with upcoming PCP labs NPT today Provided with list of alternatives medications for OAB to trial to stop oxybutynin given cognition and hallucinations Counseled on not continuing to take medications that are not prescribed to her (i.e. alprazolam and oxycotnin) which she reportedly just started this week and would not be expected to withdraw from. PT referral for gait/balance ST for dysphagia evaluation Assessment & Plan (04/27/2024 2:14 PM PROGRAM DEVELOPMENT MANAGER): Ms. You is a 73 y.o. female who currently presents to our clinic for evaluation of tremors and concern for parkinsonism. Briefly, she has an approximately one year history of bilateral postural/kinetic tremors, along with voice tremor, progressively worse over time. According to previous notes, the symptoms might be going on for the past six years. Additionally, she also has symptoms of paresthesias involving both feet going up to her mid calf. Our physical examination was remarkable for bilateral postural/kinetic tremors, as well as voice tremor. She does appear to have some ataxia on bszmij-vkxv-oohulf with intention tremor and overshoot as well as on heel howard maneuver bilaterally. At last visit she described episodes of large amplitude jerking that are unclear, may represent myoclonus. Though she has had some slowness of movement, I have not appreciated decrement or rigidity. There was very subtle and rare rest tremor. It is possible that are symptoms are related to essential tremor syndrome or ataxic syndrome, however she also endorses some cognitive changes and mild psychosis that do not fit with ET. Notably, today she indicated her cognition, anxiety, and mild psychosis (visual misperceptions, passage hallucinations) have improved since last visit. It is unclear if this is related to an underlying neuro-degenerative disorder or more toxic-metabolic in nature as at her initial clinic visit she had sepsis in setting of cellulitis and when I saw her last she had just been discharged from the hospital for TIA and reports history of recurrent UTIs on chronic antibiotic suppression. Her affect today was markedly different from last visit. She was smiling, calm and there was no latency in her self-reporting on answering questions compared to last visit wherein she was visibly anxious and had impaired attention. Given her history of sinus bradycardia and severe COPD with recurrent exacerbations, may need to consider alternative to propranolol LA 60 mg daily for tremor should we pursue ET pharmacologic management. I offered primidone today though she was no inclined to trial this as she was not as bothered by tremor. I inquired about her chart history use of gabapentin and she did not recall why she had been prescribed it and indicated she only stopped taking it because she never understood what it was prescribed for. She requested a trial of this for her neuropathic pain. Although she dose have baseline neuropathy, her complaint today of intermittent left calf pain with walking distances is concerning for claudication in setting of known PAD s/p prior stenting on that affected leg. I advised her to follow-up with her vascular surgeon to make them aware of these new symptoms. She did have palpable dorsalis pedis and posterior tibialis pulse and skin was warm and dry. Previously, she underwent EMG/NCS which was consistent with neuropathy. She underwent the lab testing that has thus far been unremarkable: KATHARINA, SPEP, immunofixation, ESR, A1c, HIV, folate, TSH reflex, CBC and CMP. Her B12 was borderline at 339 with MMA wnl. She is now taking a B complex vitamin. Additionally I've ordered RPR and B1. She had Vitamin E checked in 2022 and was wnl at 8.9. Recommendations: Consider brain MRI with/without contrast when she returns to further evaluate for cerebellar atrophy/pathology Check B1 and RPR Can start gabapentin 100 mg TID for neuropathy, may also help with RLS and possibly tremor though primidone would be preferable for tremor, she was not inclined to trial primidone Follow-up as scheduled with Dr. Jason Lorenzana 07/2024 Assessment & Plan (03/30/2024 10:11 AM PROGRAM DEVELOPMENT MANAGER): Ms. You is a 73 y.o. female who currently presents to our clinic for evaluation of tremors and concern for parkinsonism. Briefly, she has a one year history of bilateral postural/kinetic tremors, along with voice tremor, progressively worse over time. According to previous notes, the symptoms might be going on for the past six years. Additionally, she also has symptoms of paresthesias involving both feet going up to her mid calf. Our physical examination was remarkable for bilateral postural/kinetic tremors, as well as voice tremor. She reports episodes of jerking that are unclear, may represent myoclonus though I did not witness any myoclonus during today's exam. She has some mild parkinsonism on the MDS-UPDRS reflective of some slowness of movement though there was not true bradykinesia with decrement appreciated with exception of some interruptions to movement in left hand on finger taps and left foot on toe taps which is the side affected by prior R MCA stroke. I did not appreciate rigidity today. It is possible that are symptoms are related to essential tremor syndrome, however she also endorses some cognitive changes and mild psychosis that do not fit with ET. Given her history of sinus bradycardia and COPD, may need to consider alternative to propranolol LA 60 mg daily for tremor should we pursue ET pharmacologic management though HR in recent visits has been 77-108. I would like to obtain patient video today for review and see her again in 1 month for close follow-up at another time point given her recent hospitalization for stroke. Of note, on her MRI during that hospitalization, there were no cortical infarct though old right head of caudate nucleus infarct and right inferior basal ganglia infarct as well as tiny old lacunar infract in right inferior cerebellum in addition to stable patchy and punctate areas of abnormal T2 hyperintensity evident throughout periventricular and subcortical white matter in keeping with likely microvascular change. She underwent EMG/NCS for evaluation of neuropathy. EMG/NCS was consistent with neuropathy. Yesterday she underwent the lab testing ordered at last visit which is not completely finalized as of yet but thus far the following were unremarkable: KATHARINA, ESR, A1c, HIV, folate, TSH reflex, CBC and CMP. Her B12 was borderline at 339 with MMA pending. Given her cognitive complaints and neuropathy, it would be reasonable to supplement this after seeing MMA. Her SPEP, immunofixation are still in process. Additionally I've ordered RPR and B1. Recommendations: Video today in clinic Will additionally check RPR and B1 for cognitive changes Will consider repeat NPT testing as previous may have been confounded by sepsis picture Advised to send videos of jerking movements via email if possible Cognitive changes 03/30/2024 Numbness and tingling of both lower extremities 03/16/2024 Cerebrovascular accident (CVA), unspecified mech anism 03/12/2024 Left arm cellulitis 01/08/2024 Assessment & Plan (01/15/2024 10:26 AM CDT): Improving/resolving. Still some soreness with the left arm present. Finishing out her 5 day course of Augmentin (then will resume her empiric Keflex for recurrent UTI). Red flag s/s discussed/monitor. Assessment & Plan (01/13/2024 1:04 PM CDT): Alfonso You is a 73 year old woman with PMH of COPD, HTN, rheumatoid arthritis, CAD s/p PCI, CVA with residual left-sided weakness, PAD, hearing loss, and tremor who presented to the ED 01/08/2024 with acute onset left arm swelling that began that morning. ID consulted for management of severe left arm cellulitis. She initially had a scab on her left wrist, developed red streaking at the area with rapid extension of redness and swelling to above her elbow. This was associated with an episode of hypotension and concern for SIRS. CT LUE 01/07 without drainable fluid collection, only diffuse subcutaneous edema consistent with cellulitis, no evidence of osteomyelitis. Vancomycin and cefepime started on 01/07 but did not have significant improvement until 01/11; metronidazole was added on 01/10 due to lack of improvement. Overall, clinical presentation of non-purulent, rapidly progressing cellulitis associated with hypotension (SIRS or shock picture) seems most consistent with Streptococcal > Staphylococcal cellulitis. MRSA swab was negative, so antimicrobial therapy will be targeted towards Streptococcus and MSSA. Although it took around 4-5 days of IV antibiotics to get significant clinical improvement, this is still within the range of expected for severe cellulitis; given that she has now clinically improved, plan to switch to PO antibiotics. Note: patient has a listed allergy to cefazolin (developed localized redness after receiving it at OSH), but patient doesn't think it was a real allergy; she has tolerated cephalexin and believes she has tolerated amoxicillin before. Recommendations - Discontinue vancomycin, cefepime, and metronidazole - PO amoxicillin-clavulanate 875-125mg BID for 5 days (to complete a total treatment duration of 10 days, 01/07-01/16, for severe cellulitis) - Counseled patient to continue to monitor symptoms; if redness/swelling worsen, she should seek medical attention and be evaluated for antibiotic switch. If she still has some persistent redness/swelling at the end of therapy, antibiotics may need to be continued for a few more days. Continue follow-up with PCP to ensure adequate clinical response. Assessment & Plan (01/13/2024 1:21 PM CDT): Patient with erythema of the left upper extremity starting at the distal forearm. Workup notable for leukocytosis with neutrophilia. Patient also meets SIRS criteria classifying this is sepsis. She was hypotensive in the PCP office and responded to 1 L normal saline bolus. She denies any history of MRSA infection - CT entire left upper extremity: Diffuse subcu edema at the lateral aspect of the mid/distal left upper extremity, with multiple areas of ulceration; no drainable collection, subcutaneous gas, findings of advanced osteomyelitis: New subchondral cystic change within the left lunate, which may represent sequelae of ulnolunate impaction. - Continue with cefepime and vancomycin (01/07-01/12)hour started in the ED. trough ordered for 3rd dose. MRSA swab negative. - Flagyl added (01/10-01/12) for minimal improvement of cellulitis on current regimen. - No drainable fluid collection. - S/p US soft tissue 01/10 without any fluid collection identified. - Follow up HSV PRC - Discharge on Augmentin for 5 days on discharge. UTI (urinary tract infection) 01/08/2024 Assessment & Plan (01/13/2024 1:02 PM CDT): UA 01/07 with 3+ LE, +nitrites, >50 WBCs; Urine cx 01/07 with <100,000 cfu/mL Presence of urinary symptoms somewhat unclear - she report a burning sensation at the urethra, but no dysuria or urgency/frequency. Nonetheless, has already completed treatment course for UTI with antibiotics for cellulitis. Assessment & Plan (01/11/2024 2:08 PM CDT): Patient with symptoms consistent with urinary tract infection include dysuria and urgency. Patient with many positive cultures in the past. All susceptible to cefepime - continue with cefepime q.12 hours started in the ED. urine culture collected, after antibiotics given. - Urine culture with no growth to date. - transition back to prophylactic Keflex after completing course of antibiotics. Continue with home oxybutynin Hypotension 01/08/2024 Assessment & Plan (01/11/2024 2:06 PM CDT): RESOLVED. Overall, picture consistent with septic shock versus an orthostatic syncopal episode secondary to soft blood pressures from sepsis. Status post 1 L IV fluids in the ED and responded well. Lactate improved and normalized - continue with antibiotics for cellulitis and UTI as noted elsewhere. - S/p IVF resuscitation. Sepsis 01/08/2024 Assessment & Plan (01/08/2024 7:17 PM CDT): Sirs criteria met with WBC, respiratory rate, heart rate. Source of infection likely cellulitis plus urinary tract infection. WBC of 14.5 with 12.6 neutrophils. - see cellulitis and UTI problems for management Hypoxia 01/08/2024 Assessment & Plan (01/15/2024 10:28 AM CDT): Patient chronically SOB, has COPD--no acute exacerbation today. O2 in office normal. Patient's O2 sats were hypoxic at night and was on 2L of O2. Attempted walk study today in office but pt unable to fully tolerate and oxygen was stable at 98%. Will get overnight oximetry study to see if O2 needed at night. Assessment & Plan (01/09/2024 8:48 PM CDT): Patient reports that she has on no oxygen at home. She does has a history of COPD but is not in acute exacerbation. She has no change in her cough or sputum production. She does not feel acutely short of breath. Consider pneumonia versus PE versus cardiac mediated process versus no true hypoxia. No signs or symptoms of volume overload - CXR with emphysema and left upper lobe opacities concerning for possible pneumonia. - Patient is a current smoker and with history of COPD. - monitor on 2 L oxygen, wean as tolerated - Oxygen walk study prior to discharge. Right upper quadrant pain 01/08/2024 Assessment & Plan (01/09/2024 8:50 PM CDT): Poor description of pain. Sharp/stabbing in quality, unclear aggravating or alleviating factors. Has been present for the last 1 week. She states it is under her ribcage - Tylenol p.r.n. pain, start lidocaine patches - RUQ US with mild dilated CBD likely due to reservoir effect. LFTs wnl. Stenosis of right carotid artery 10/17/2023 Carotid stenosis, right 09/23/2023 Assessment & Plan (09/25/2023 10:41 AM CDT): High-grade right internal carotid artery stenosis, concerning for symptomatic carotid disease given her multiple episodes of what sounds like amaurosis fugax. CTA reviewed, vessels overall small in caliber, given vessel size I have recommended a right CEA over a TCAR. Risks benefits alternatives discussed, risks including bleeding, infection, nerve injury, stroke, need for the surgery patient wished to proceed. Continue ASA statin therapy good blood pressure control. Palpitations 09/06/2023 Diplopia 07/23/2023 Simple chronic bronchitis 07/01/2023 Recurrent major depressive disorder, in partial remission 07/01/2023 Assessment & Plan (01/08/2024 8:22 PM CDT): - continue with home Lexapro, Klonopin, trazodone Hyponatremia 02/28/2023 Assessment & Plan (02/28/2023 4:53 PM CDT): Potential repeat TIA or vascular insult Sodium had rebounded last week but not back to normal range; she is back on Paxil 1/2 dose from her usual Plan was to check her sodium today, but she has had two syncopal events today (likely vasovagal), with soft BP today (though higher than last week) Will have her evaluated at ER (sister will conduct her), I am hopeful admission (direct would be ideal but too late in day for it) UTI was treated, but possibility of recurrence exists Possible relation of her rheum medications, also chronic depression due to passing of her 2 years ago Vasovagal syncope 02/28/2023 Myoclonic jerking 02/09/2023 Assessment & Plan (02/09/2023 11:12 AM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 Artery Analysis: The posterior tibial waveform is triphasic. Left Anterior Tibial Artery Analysis: The anterior tibial waveform is triphasic. CONCLUSIONS: 1. Ankle-brachial index of 0.9-1.3 is within normal limits in the bilateral lower extremities. ATTESTATION: I have reviewed and interpreted the pertinent images and measurements of this study. I attest to the conclusions in the final report that is provided above. Electronically Signed By: Robin Hernandez MD 08/27/2024 1:32:07 PM CDT Procedure Note Robin Hernandez MD - 08/27/2024 [facility] [address] [place] [address]. [place] [address] Lower Extremity Arterial Doppler Report Patient Name: ALFONSO YOU A : 1950 Study Date: 08/27/2024 7:58:00 AM Gender: F Scow Derrick Operator: Edith Gandhi RVT Location: [facility] Ref Provider: ROBIN HERNANDEZ Quality: Adequate Order Provider: ROBIN HERNANDEZ PROCEDURES: Arterial Report: Ankle - Brachial Index Doppler exam. INDICATIONS: S/P aobifem BPG 02/22/16; S/P stent Lt iliac 04/29/15. HISTORY: HTN. HLD. CVA. COPD. CAD S/P stents. Current smoker. COMPARISONS: No change compared to prior study. The previous exam was completed on 09/19/23. MEASUREMENTS: Right Value Left Value Rt Brachial Pressure 177 mmHg Lt Brachial Pressure 174 mmHg Rt WHITE SUGAR SYRUP OPERATOR Pressure 182 mmHg Lt WHITE SUGAR SYRUP OPERATOR Pressure 187 mmHg Rt DPA Pressure 183 mmHg Lt DPA Pressure 168 mmHg Rt PT JAMIE Resting 1.03 Lt PT JAMIE Resting 1.06 Rt DP JAMIE Resting 1.03 Lt DP JAMIE Resting 0.95 FINDINGS: Right Posterior Tibial Artery Analysis: The posterior tibial waveform is triphasic. Right Anterior Tibial Artery Analysis: The anterior tibial waveform is triphasic. Left Posterior Tibial Artery Analysis: The posterior tibial waveform is triphasic. Left Anterior Tibial Artery Analysis: The anterior tibial waveform is triphasic. CONCLUSIONS: 1. Ankle-brachial index of 0.9-1.3 is within normal limits in thebilateral lower extremities. ATTESTATION: I have reviewed and interpreted the pertinent images and measurements ofthis study. I attest to the conclusions in the final report that is provided above. Electronically Signed By: Robin Hernandez MD 08/27/2024 1:32:07 PM CDT us Robin Hernandez MD IMG US PROCEDURES Final Result * US Duplex Scan Aorta, IVC Iliac Complete (08/27/2024 9:49 AM CDT) Anatomical Region Laterality Modality Vascular N/A Ultrasound 08/27/2024 8:10 AM CDT Narrative 08/27/2024 2:26 PM CDT [facility] [address] [place] [address]. [place] [address] Abdominal Aortic Duplex Ultrasound Report Patient Name: ALFONSO YOU A : 1950 Study Date: 08/27/2024 8:10:07 AM Gender: F Scow Derrick Operator: Location: [facility] Ref Provider: ROBIN HERNANDEZ Quality: Adequate Order Provider: ROBIN HERNANDEZ PROCEDURES: Arterial Report: Abdominal Aorta Stent Graft Duplex. INDICATIONS: S/P aobifem BPG 02/22/16; S/P stent Lt iliac 04/29/15. COMPARISONS: The previous exam was completed on 09/19/23. STENTS: Velocities Value Aorta Prx PSV 70.00 cm/sec Aorta Mid PSV 58.00 cm/sec BYPASS: Velocities Value Aorta Prx AP Dim 2.87 cm Aorta Prx Trans Dim 3.02 cm Aorta Mid AP Dim 2.52 cm Aorta Mid Trans Dim 2.07 cm MEASUREMENTS: Bypass Measurements Measurement Value Units Location/Type Aobifem Inflow [place] Artery PSV 69.00 cm/sec Anast Prx PSV 52.00 cm/sec BPG Prx PSV 43.00 cm/sec Rt Limb Prx PSV 106.00 cm/sec Rt Limb Mid PSV 58.00 cm/sec Rt Limb Dst PSV 52.00 cm/sec Anast Dst PSV 61.00 cm/sec Outflow [place] Artery PSV 67.00 cm/sec Lt Limb Prx PSV 121.00 cm/sec Lt Limb Mid PSV 82.00 cm/sec Lt Limb Dst PSV 64.00 cm/sec Anast Dst PSV 86.00 cm/sec Outflow [place] Artery PSV 298.00 cm/sec FINDINGS: Study Quality: Adequate. Abdominal Aorta: Proximal aorta measures 2.87 x 3.02 cm. Atherosclerotic plaque noted. Patent aortobifemoral artery bypass graft with normal velocities. Elevated PSV 298 cm/s at outflow artery on the left. Possible pseudoaneurysm noted at distal right limb measuring 1.08 x 0.75 x 0.89 cm, neck measuring 0.55 x 0.36 cm. Provider Notification: Results called to Dr. Hernandez at 09:19. CONCLUSIONS: 1. Patent aortobifemoral bypass. Pseudoaneurysm noted on the distal right limb measuring 1.1 cm. ATTESTATION: I have reviewed and interpreted the pertinent images and measurements of this study. I attest to the conclusions in the final report that is provided above. Electronically Signed By: Robin Hernandez MD 08/27/2024 1:33:30 PM CDT Procedure Note Robin Hernandez MD - 08/27/2024 [facility] [address] [place] [address]. [place] [address] Abdominal Aortic Duplex Ultrasound Report Patient Name: ALFONSO YOU A : 1950 Study Date: 08/27/2024 8:10:07 AM Gender: F Scow Derrick Operator: IVY Location: [facility] Ref Provider: ROBIN HERNANDEZ Quality: Adequate Order Provider: ROBIN HERNANDEZ PROCEDURES: Arterial Report: Abdominal Aorta Stent Graft Duplex. INDICATIONS: S/P aobifem BPG 02/22/16; S/P stent Lt iliac 04/29/15. COMPARISONS: The previous exam was completed on 09/19/23. STENTS: Velocities Value Aorta Prx PSV 70.00 cm/sec Aorta Mid PSV 58.00 cm/sec BYPASS: Velocities Value Aorta Prx AP Dim 2.87 cm Aorta Prx Trans Dim 3.02 cm Aorta Mid AP Dim 2.52 cm Aorta Mid Trans Dim 2.07 cm MEASUREMENTS: Bypass Measurements Measurement Value Units Location/Type Aobifem Inflow [place] Artery PSV 69.00 cm/sec Anast Prx PSV 52.00 cm/sec BPG Prx PSV 43.00 cm/sec Rt Limb Prx PSV 106.00 cm/sec Rt Limb Mid PSV 58.00 cm/sec Rt Limb Dst PSV 52.00 cm/sec Anast Dst PSV 61.00 cm/sec Outflow [place] Artery PSV 67.00 cm/sec Lt Limb Prx PSV 121.00 cm/sec Lt Limb Mid PSV 82.00 cm/sec Lt Limb Dst PSV 64.00 cm/sec Anast Dst PSV 86.00 cm/sec Outflow [place] Artery PSV 298.00 cm/sec FINDINGS: Study Quality: Adequate. Abdominal Aorta: Proximal aorta measures 2.87 x 3.02 cm. Atherosclerotic plaque noted.Patent aortobifemoral artery bypass graft with normal velocities. Elevated BCF018 cm/s at outflow artery on the left. Possible pseudoaneurysm noted at distal rightlimb measuring 1.08 x 0.75 x 0.89 cm, neck measuring 0.55 x 0.36 cm. Provider Notification: Results called to Dr. Hernandez at 09:19. CONCLUSIONS: 1. Patent aortobifemoral bypass. Pseudoaneurysm noted on the distal rightlimb measuring 1.1 cm. ATTESTATION: I have reviewed and interpreted the pertinent images and measurements ofthis study. I attest to the conclusions in the final report that is provided above. Electronically Signed By: Robin Hernandez MD 08/27/2024 1:33:30 PM CDT us Robin Hernandez MD IM US PROCEDURES Final Result * CT Lung Cancer Screening (03/05/2024 9:05 AM CDT) Anatomical Region Laterality Modality Chest N/A Computed Tomogra phy 03/07/2024 10:3 5 AM CDT Narrative 03/07/2024 10:41 AM CDT EXAM DESCRIPTION: CT LUNG CANCER SCREENING REASON FOR STUDY: Screening CT of the chest in a current smoker with a 51 pack year smoking history. Additional history: None. TECHNIQUE: Low dose CT scan of the chest was performed without intravenous contrast using helical scanning technique. The exam extends from the lung apices through the lung bases. Automatic exposure control was used as a dose optimization technique. NOTE: This study was performed for the specific purposes of lung cancer screening and is not an alternative to diagnostic chest CT. RADIATION DOSE: CT dose index volume (CTDIvol) = 0.99 mGy COMPARISON: 02/16/2023 FINDINGS: SMOKING RELATED LUNG DISEASE: There are severe emphysematous changes of lungs with scattered mild subsegmental atelectasis and scarring. There is mild biapical pleural thickening and scarring. There is no definite evidence of a pneumothorax. There is scattered mild bronchial wall thickening, which is likely related to mild chronic bronchitis/bronchiolitis. There is no definite evidence of focal consolidation or pleural effusion. There are scattered calcified granulomas noted. LUNG NODULES: There is a stable subtle subpleural 0.3 cm pulmonary nodule in the posterior right lower lobe (axial image 148). There is a stable subtle subpleural 0.2 cm pulmonary nodule in the anterior right middle lobe abutting the right minor fissure (axial image 193). CORONARY ARTERY CALCIFICATION: Present. OTHER: The heart size is stable. There is no definite evidence of a pericardial effusion. There are atherosclerotic changes of the thoracic aorta and coronary vessels. There is no definite unenhanced CT evidence of mediastinal, hilar, or axillary lymphadenopathy. There are scattered subcentimeter mediastinal lymph nodes noted with largest measuring 0.5 cm in the subcarinal region (axial image 143). Scattered calcified right hilar lymph nodes are noted. There are small bilateral Bochdalek's hernias. The bilateral adrenal glands are grossly stable and unremarkable. Aortic bypass graft is partially visualized. The gallbladder is surgically absent. There is mild osteopenia. There is a dextroscoliotic curvature of the spine with degenerative changes. IMPRESSION: Redemonstration of a couple of tiny pulmonary nodules measuring up to 0.3 cm. No definite evidence of a new suspicious pulmonary nodule. Severe emphysematous changes of lungs with scattered mild subsegmental atelectasis and scarring. Scattered mild bronchial wall thickening, which is likely related to mild chronic bronchitis/bronchiolitis. Evidence of prior granulomatous disease. Lung-RADS category 2: Benign appearance or behavior. Recommendation: Low dose Screening CT of chest in 12 months. THIS IS AN ELECTRONICALLY VERIFIED FINAL REPORT 03/07/2024 10:41 AM - Electronically signed by Paula Russo D.O. PS: PS Report ID: [id number] Reading Location: [id number] Procedure Note Paula Russo DO - 03/07/2024 EXAM DESCRIPTION: CT LUNG CANCER SCREENING REASON FOR STUDY: Screening CT of the chest in a current smoker with a51 pack year smoking history. Additional history: None. TECHNIQUE: Low dose CT scan of the chest was performed without intravenous contrast using helical scanning technique. The exam extends from the lung apices through the lung bases. Automatic exposure control was used as adose optimization technique. NOTE: This study was performed for the specific purposes of lung cancer screening and is not an alternative to diagnostic chest CT. RADIATION DOSE: CT dose index volume (CTDIvol) = 0.99 mGy COMPARISON: 02/16/2023 FINDINGS: SMOKING RELATED LUNG DISEASE: There are severe emphysematous changes of lungs with scattered mild subsegmental atelectasis and scarring. There is mild biapical pleural thickening and scarring. There is no definiteevidence of a pneumothorax. There is scattered mild bronchial wall thickening,which is likely related to mild chronic bronchitis/bronchiolitis. There is no definite evidence of focal consolidation or pleural effusion. There are scattered calcified granulomas noted. LUNG NODULES: There is a stable subtle subpleural 0.3 cm pulmonarynodule in the posterior right lower lobe (axial image 148). There is a stablesubtle subpleural 0.2 cm pulmonary nodule in the anterior right middle lobeabutting the right minor fissure (axial image 193). CORONARY ARTERY CALCIFICATION: Present. OTHER: The heart size is stable. There is no definite evidence of a pericardial effusion. There are atherosclerotic changes of the thoracicaorta and coronary vessels. There is no definite unenhanced CT evidence of mediastinal, hilar, oraxillary lymphadenopathy. There are scattered subcentimeter mediastinal lymphnodes noted with largest measuring 0.5 cm in the subcarinal region (axial image 143). Scattered calcified right hilar lymph nodes are noted. There are small bilateral Bochdalek's hernias. The bilateral adrenalglands are grossly stable and unremarkable. Aortic bypass graft is partially visualized. The gallbladder is surgically absent. There is mild osteopenia. There is a dextroscoliotic curvature of thespine with degenerative changes. IMPRESSION: Redemonstration of a couple of tiny pulmonary nodules measuring up to 0.3cm. No definite evidence of a new suspicious pulmonary nodule. Severe emphysematous changes of lungs with scattered mild subsegmental atelectasis and scarring. Scattered mild bronchial wall thickening, which is likely related to mild chronic bronchitis/bronchiolitis. Evidence of prior granulomatous disease. Lung-RADS category 2: Benign appearance or behavior. Recommendation: Low dose Screening CT of chest in 12 months. THIS IS AN ELECTRONICALLY VERIFIED FINAL REPORT 03/07/2024 10:41 AM - Electronically signed by Paula Russo D.O. PS: PS Report ID: [id number] Reading Location: [place] [address] us Ravindra Rowe MD IMG CT PROCEDURES Final Res ult * Dexa Axial Skeleton Bone Density 1 or 2 Site (03/05/2024 9:01 AM CDT) Anatomical Region Laterality Modality Body N/A Other 03/05/2024 4:02 PM CDT Narrative 03/05/2024 4:03 PM CDT EXAM DESCRIPTION: DEXA AXIAL SKELETON BONE DENSITY 1 OR MORE SITES REASON FOR STUDY: 73 y/o year old F with given history of: Post menopausal status. Long-term and current use of steroids. History of smoking and rheumatoid arthritis. Patient takes vitamin-D. Latrine Cleaner/Model: Emgo Discovery SL (S/N [id number]) CLINICAL INFORMATION: Current height: 62 inches Maximum height: 62 inches Weight: 106 pounds Risk factors: Smoking, glucocorticoid use and rheumatoid arthritis COMPARISON: 01/01/2022 FINDINGS: AP LUMBAR SPINE L1-L4: Total BMD is 1.071 g/cm2 T-score is 0.2 This is a 3.9% decrease in comparison to prior exam which is statistically significant. LEFT HIP: Total BMD is 0.747 g/cm2 T-score is -1.6 This is a 7.7% decrease in comparison to prior exam which is statistically significant. Femoral neck BMD is 0.642 g/cm2 T-score is -1.9 FRAX: FRAX not reported secondary to treatment for osteoporosis. IMPRESSION: Low bone mass REFERENCE: Bone mineral density: T-Score: Normal (T-score above or = -1.0) Low bone mass (T-score between -1.0 and -2.5) replaces the previously used term osteopenia Osteoporosis (T-score = or below -2.5) Z-Score: Within the expected range for age (Z-score above -2.0) Below the expected range for age (Z-score is -2.0 or below) Please see below follow up recommendations. Medical evaluation for secondary causes of low bone mineral density may be appropriate. FRAX is a World Health Organization validated fracture risk assessment tool that calculates a person's 10 year probability of a major osteoporosis related fracture and hip fracture. According to the National Osteoporosis Foundation guidelines, postmenopausal women and men age 50 or older with low bone mass and a 10 year probability of a major osteoporosis related fracture = or greater than 20% or a 10 year probability of a hip fracture = or greater than 3% should be considered for pharmacological treatment for the prevention of osteoporosis. For further information, including treatment recommendations, please refer to the 2019 ISCD Official Positions (http://www.iscd.org) and the NOF's Clinician's Guide to Prevention and Treatment of Osteoporosis (http://www.nof.org/professionals/clinical-guidelines) THIS IS AN ELECTRONICALLY VERIFIED FINAL REPORT 03/05/2024 4:03 PM - Electronically signed by Meena Cash M.D. TW: TW Report ID: [id number] Reading Location: [id number] Procedure Note Meena Cash MD - 03/05/2024 EXAM DESCRIPTION: DEXA AXIAL SKELETON BONE DENSITY 1 OR MORE SITES REASON FOR STUDY: 73 y/o year old F with given history of: Post menopausal status. Long-term and current use of steroids. History ofsmoking and rheumatoid arthritis. Patient takes vitamin-D. Latrine Cleaner/Model: Emgo Discovery SL (S/N [id number]) CLINICAL INFORMATION: Current height: 62 inches Maximum height: 62 inches Weight: 106 pounds Risk factors: Smoking, glucocorticoid use and rheumatoid arthritis COMPARISON: 01/01/2022 FINDINGS: AP LUMBAR SPINE L1-L4: Total BMD is 1.071 g/cm2 T-score is 0.2 This is a 3.9% decrease in comparison to prior exam which is statistically significant. LEFT HIP: Total BMD is 0.747 g/cm2 T-score is -1.6 This is a 7.7% decrease in comparison to prior exam which is statistically significant. Femoral neck BMD is 0.642 g/cm2 T-score is -1.9 FRAX: FRAX not reported secondary to treatment for osteoporosis. IMPRESSION: Low bone mass REFERENCE: Bone mineral density: T-Score: Normal (T-score above or = -1.0) Low bone mass (T-score between -1.0 and -2.5) replaces thepreviously used term osteopenia Osteoporosis (T-score = or below -2.5) Z-Score: Within the expected range for age (Z-score above -2.0) Below the expected range for age (Z-score is -2.0 or below) Please see below follow up recommendations. Medical evaluation forsecondary causes of low bone mineral density may be appropriate. FRAX is a World Health Organization validated fracture risk assessmenttool that calculates a person's 10 year probability of a major osteoporosisrelated fracture and hip fracture. According to the National OsteoporosisFoundation guidelines, postmenopausal women and men age 50 or older with low bonemass and a 10 year probability of a major osteoporosis related fracture = or greater than 20% or a 10 year probability of a hip fracture = or greaterthan 3% should be considered for pharmacological treatment for the preventionof osteoporosis. For further information, including treatment recommendations, please referto the 2019 ISCD Official Positions (http://www.iscd.org) and the NOF's Clinician's Guide to Prevention and Treatment of Osteoporosis (http://www.nof.org/professionals/clinical-guidelines) THIS IS AN ELECTRONICALLY VERIFIED FINAL REPORT 03/05/2024 4:03 PM - Electronically signed by Meena Cash M.D. TW: MALCOM Report ID: [id number] Reading Location: [id number] us Ravindra Rowe MD IMG DXA PROCEDURES Final Re sult * SCREENING MAMMOGRAM BILATERAL W RICHA (03/05/2024 8:54 AM CDT) Anatomical Region Laterality Modality Breast Bilateral Mammography 03/05/2024 5:31 PM CDT Impressions 03/05/2024 5:31 PM CDT No evidence of malignancy in either breast. FINAL ASSESSMENT: BI-RADS Category 1: Negative. RECOMMENDATION: Recommend return for annual screening mammogram in 12 months. Electronically signed by: Alma Vee M.D. Narrative 03/05/2024 5:31 PM CDT EXAMINATION: BILATERAL SCREENING MAMMOGRAM COMPARISON: October 31, 2021 TECHNIQUE: Full-field 2D and digital breast tomosynthesis (DBT) images were obtained. CAD was utilized. BREAST PARENCHYMAL COMPOSITION: There are scattered areas of fibroglandular density. FINDINGS: There is no suspicious mass, calcification, or distortion in either breast. Ravindra Rowe MD IMG MAMMO PROCEDURES Final Result * Hepatitis C antibody (07/02/2023 2:41 PM PROGRAM DEVELOPMENT MANAGER) Hep C Ab NON-REACTI VE NON-REACT [email or web address] Comment: HCV antibody was non-reactive. There is no laboratory evidence of HCV infection. In most cases, no further action is required. However, if recent HCV exposure is suspected, a test for HCV RNA (test code 65307) is suggested. For additional information please refer to http://education.SwimTopia/faq/WAT60n3 (This link is being provided for informational/ educational purposes only.) 07/02/2023 2:41 PM PROGRAM DEVELOPMENT MANAGER 07/02/2023 2:43 PM PROGRAM DEVELOPMENT MANAGER Narrative [facility] - 07/04/2023 12:03 AM PROGRAM DEVELOPMENT MANAGER FASTING:NO FASTING: NO Ravindra Rowe MD LAB MICROBIOLOGY - GENERAL ORDERABLES Final Result [facility] [address] [place] [address] * COLONOSCOPY (10/12/2022 10:12 AM CDT) Anatomical Region Laterality Modality Other Narrative Procedure Note Henrik Cassidy MD - 10/12/2022 10:12 AM CDT [facility] Patient Name: Alfonso You Procedure Date: 10/12/2022 10:12 AM Date of : 1950 Admit Type: Outpatient Age: 72 Gender: Female Attending MD: Henrik Cassidy M.D. Room[facility] 2 Note Status: Finalized Patient Profile: Refer to note in patient chart for documentation of history and physical. Procedure: Colonoscopy Indications: Screening for colorectal malignant neoplasm, Last colonoscopy: December 2016 Referring MD: Ravindra Rowe M.D. Providers: Henrik Cassidy M.D. Impression: - Hemorrhoids found on perianal exam. - The entire examined colon is normal. - No specimens collected. Recommendation: - Discharge patient to home. - Resume previous diet. - Continue present medications. - Repeat colonoscopy in 10 years for screening purposes. - Return to primary care physician as previously scheduled. Medicines: Propofol per Anesthesia Complications: No immediate complications. Estimated Blood Loss: Estimated blood loss: none. Procedure: Pre-Anesthesia Assessment: - This assessment was completed [Time ofAssessment] prior to the administration of sedation. The benefits, risks and alternatives of theprocedure and sedation were discussed and informed consentwas obtained. All questions were answered. Please referto the signed informed consent document in the medical record. The scope was passed under direct vision.The Pediatric Colonoscope PCF-H190L [id number] was introduced through the anus and advanced to the the cecum, identified by appendiceal orifice andileocecal valve. The bowel preparation used was Miralax via single dose instruction. The bowel preparation used was bisacodyl tablets via single dose instruction.The colonoscopy was extremely difficult due to aredundant colon, significant looping and the patient's body habitus. The patient tolerated the procedure well.The quality of the bowel preparation was good. The ileocecal valve, appendiceal orifice, and rectumwere photographed. Findings: Hemorrhoids were found on perianal exam. The colon (entire examined portion) appeared normal. Electronically signed by Henrik Cassidy M.D. Henrik Cassidy M.D. 10/12/2022 11:08:22 AM Number of Addenda: 0 Note Initiated On: 10/12/2022 10:12 AM Procedure Code(s): --- Professional --- G0121, Colorectal cancer screening; colonoscopy on individual not meeting criteria for high risk --- Technical --- G0121, Colorectal cancer screening; colonoscopy on individual not meeting criteria for high risk Diagnosis Code(s): --- Professional --- K64.9, Unspecified hemorrhoids Z12.11, Encounter for screening for malignant neoplasm of colon --- Technical --- K64.9, Unspecified hemorrhoids Z12.11, Encounter for screening for malignant neoplasm of colon CPT copyright 2020 [employer]. All rights reserved. The codes documented in this report are preliminary and upon death surveys coder reviewmay be revised to meet current compliance requirements. Recognized by the [employer] for promoting quality in endoscopy Henrik Cassidy MD ENDOSCOPY PROCEDURES Final Re sult from Last 3 Months or Most Recently Relevant to Health Maintenance Insurance [employer] MEDICARE GOLD A[employer] MEDICARE GOLD Advance Directives For more information, please contact: [phone] Documents on File Type Date Recorded Patient Telecom Field Technician Expl anation ADVANCE DIRECTIVE 10/03/2023 2:29 PM Power of Rough And Trueing Machine Operator-Medical ADVANCE DIRECTIVE 10/03/2023 1:53 PM DNR * Full Code (Latest Code Status on File) Date Activated Date Inactivated Comments 03/12/2024 4:42 PM 03/14/2024 3:50 PM * Full Code Date Activated Date Inactivated Comments 01/08/2024 9:49 PM 01/13/2024 6:25 PM * Full Code Date Activated Date Inactivated Comments 10/17/2023 11:10 AM 10/18/2023 4:14 PM * Full Code Date Activated Date Inactivated Comments 10/12/2022 9:59 AM 10/12/2022 3:55 PM * Full Code Date Activated Date Inactivated Comments 10/12/2022 9:59 AM 10/12/2022 9:59 AM Care Teams Mailing Machine Assistant Relationship Specialty Start Date End Date Ravindra Rowe MD PCP - General Family Medicine 11/14/16 [place] [address] [place] [address] Surgeon General Surgery 09/30/17 [place] [address] [place] [address] Consulting Physician Cardiology 06/24/18 Liza Major, L[place]LEY [address] [place] [address] Nurse Practitioner Nurse Practitioner 07/08/18 [place] [address] [place] [address] Consulting Physician Cardiovascular Disease 07/28/18 [place] [address] [place] [address] Consulting Physician Urology 03/16/20 [place] [address] [place] [address] Consulting Physician Nephrology 03/16/20 [place] [address] [address] Referring Physician Blasting Helper 04/20/24
--- OUTSIDE RECORDS SUMMARY | 2024-09-25 10:08 | XMS_ITS | Referral Summary ---
Author Organization [facility] Address [address] [place] [address] Care Team Providers Care Roll Grinder Name Role Phone Ravindra Rowe MD Primary Care Provider [phone] Darrion Griffith MD Unavailable [phone] Ronen Nunes MD Unavailable [phone] Liza Major NP Unavailable [phone] Juarez Pulido MD Unavailable [phone] Migue Reid MD Unavailable [phone] Carols Amaya MD Unavailable [phone] Fiorella Oscar MD Unavailable [phone] Encounters Date Type Department Care Team Description 09/23/2024 10:00 AM CDT Office Visit [facility] Vascular at [address] [address] Robin Hernandez MD 09/18/2024 12:14 PM CDT - 09/18/2024 11:59 PM CDT Hospital Encounter [facility] [address] [place] [address] Atherosclerosis of ivanof bay artery of both lower extremities with intermittent claudication Discharge Disposition: Discharge to home or self care 09/03/2024 Telephone [facility] Vascular and Vein Surgery at [address] [place] [address] La Nena Rudd 09/02/2024 Orders Only [facility] Vascular at [address] [place] [address] Robin Hernandez MD Atherosclerosis of ivanof bay artery of both lower extremities with intermittent claudication (Primary Dx) 09/02/2024 10:00 AM CDT Office Visit [facility] Vascular at [address] [place] [address] Robin Hernandez MD S/P aortobifemoral bypass surgery (Primary Dx); Hyperlipidemia LDL goal <70; Essential hypertension 08/28/2024 Telephone [facility] Vascular and Vein Surgery [address] [facility] [address] [place] [address] Janett More MA 08/27/2024 Telephone [facility] Movement Disorders [address] [facility] 7th [place] [address] Clara Ramirez NP 08/27/2024 9:00 AM CDT Ancillary Procedure [facility] Vascular and Vein Surgery at [address] [place] [address] S/P aortobifemoral bypass surgery; Other specified symptoms and signs involving the circulatory and respiratory systems 08/27/2024 9:00 AM CDT Ancillary Procedure [facility] Vascular and Vein Surgery at [address] [place] [address] S/P aortobifemoral bypass surgery; Other specified symptoms and signs involving the circulatory and respiratory systems 08/27/2024 8:00 AM CDT Ancillary Procedure [facility] Vascular and Vein Surgery at [address] [place] [address] S/P aortobifemoral bypass surgery 08/20/2024 Orders Only [facility] Primary Care at [address] [phone] Ravindra Rowe MD Mixed anxiety and depressive disorder (Primary Dx) 08/12/2024 12:00 PM CDT Clinical Support [facility] Movement Disorders [address] [facility] [address] [place] [address] Tremor 08/12/2024 10:30 AM CDT Office Visit [facility] Movement Disorders [address] [address] Clara Ramirez NP RLS (restless legs syndrome) (Primary Dx); Tremor; Other iron deficiency anemia; Iron deficiency anemia, unspecified iron deficiency anemia type; Cognitive impairment; Imbalance; Dysphagia, unspecified type 08/11/2024 Orders Only [facility] Vascular at [address] [place] [address] Robin Hernandez MD S/P aortobifemoral bypass surgery (Primary Dx) 08/11/2024 Telephone [facility] Vascular and Vein Surgery [address] [facility] [address] [place] [address] Janett More MA 08/11/2024 Orders Only [facility] Vascular and Vein Surgery [address] [facility] [address] [place] [address] Robin Hernandez MD S/P aortobifemoral bypass surgery (Primary Dx); Other specified symptoms and signs involving the circulatory and respiratory systems 08/07/2024 Telephone [facility] Primary Care at [address] [address] cancelled needs prior auth 08/07/2024 Telephone [facility] Primary Care at [address] [address] Ravindra Rowe MD Medical Question/Miscellaneous 08/07/2024 10:15 AM CDT Office Visit [facility] Primary Care at [address] [address] Ravindra Rowe MD Panlobular emphysema (HCC) (Primary Dx); Hyperlipidemia LDL goal <70; Cerebrovascular disease; Essential hypertension; Mixed anxiety and depressive disorder; Rheumatoid arthritis involving multiple sites with positive rheumatoid factor (HCC); Left hemiparesis (HCC); Other psychoactive substance use, unspecified with withdrawal, unspecified (HCC); Myoclonic jerking; Resting tremor; Femoral artery aneurysm, right 07/23/2024 5:49 PM CHANNEL PROCESS SUPERVISOR - 07/23/2024 11:59 PM CHANNEL PROCESS SUPERVISOR Hospital Encounter [facility] Emergency, Room R Discharge Disposition: Discharge to home or self care from Last 3 Months Allergies Active Allergy Reactions Criticality Noted Date [...] times a day 180 tablet 2 04/07/20 Active Additional Information Patient not taking.Reported on [...] evaluation. Assessment & Plan (04/23/2024 2:58 PM CHANNEL PROCESS SUPERVISOR): Impression: Patient has a history of an [...] previously exhibited some possible slight ataxia on cygbbt-uyhi-zvekrk with intention tremor and overshoot as well [...] evaluation Assessment & Plan (04/27/2024 2:14 PM CHANNEL PROCESS SUPERVISOR): Ms. You is a 73 y.o. female [...] does appear to have some ataxia on enijbx-nxfa-hptxru with intention tremor and overshoot as well [...] 07/2024 Assessment & Plan (03/30/2024 10:11 AM CHANNEL PROCESS SUPERVISOR): Ms. You is a 73 y.o. female [...] (02/24/2020): Added automatically from request for surgery [id number] Encounter for Medicare annual wellness exam 01/18 Assessment & Plan (04/30/2023 1:53 PM CHANNEL PROCESS SUPERVISOR): A(n) yearly Medicare Annual Wellness Visit has [...] months Assessment & Plan (04/29/2022 12:09 PM CHANNEL PROCESS SUPERVISOR): A(n) yearly Medicare Annual Wellness Visit has [...] (01/18/2020): Added automatically from request for surgery [id number] Bilateral carotid artery stenosis 04/01/2019 Assessment & Plan (04/23/2024 2:50 PM CHANNEL PROCESS SUPERVISOR): Impression: Patient is status post right carotid [...] aspirin History of pancreatitis 11/07/2018 Atherosclerosis of ivan[place] bay co ronary artery of ivanof bay heart without angina pectoris 10/06/2018 Overview (10/06/2018): Added automatically from request for surgery [id number] Dehydration 09/29/2018 Hypotension due to hypovolemia 09/29/2018 Abnormal mammogram of right breast 08/01/2018 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 Patient also had a mobile campus monitor that identified a 1% burden of PVCs and had 2 events ventricular tachycardia. - continue with aspirin and statin Assessment & Plan (02/05/2020 3:18 PM CDT): Continues to follow up with sole tier. Occasional chest pain continues, she is scheduled [...] but I want to cut as above givne the jerking, potentially move to a different one No suicidal plan, but worrisome question proffered; I reassured that we won't do that, and it would not be good for her health to stop everything at once. She would likely suffer terribly if she did so. She denies suicidality per se Assessment & Plan (04/04/2020 3:04 PM CHANNEL PROCESS SUPERVISOR): Will stop cymbalta Continuing Paxil as current [...] clonazepam for anxiety control. Fibromyalgia 11/02/2014 Other long term acute care registered nurse (current) drug therapy 5 Cervicalgia 02/11/2014 Essential hypertension 10/27/2013 Overview (06/03/2017): Hypertension Assessment & Plan (09/04/2024 10:51 AM CDT): Stable continue lisinopril Assessment & Plan (04/23/2024 2:58 PM CHANNEL PROCESS SUPERVISOR): Impression: Chronic and stable. Plan: Continue amlodipine, [...] recollection, but was significant in the ER. Spud Grader has reduced that, and recommend increase in lisinopril if needed. Renal panel pending Hyperlipidemia LDL goal <70 10/27/2013 Overview (08/25/2016): HLD - Hyperlipidaemia Assessment & Plan (09/04/2024 10:51 AM CDT): Stable continue Lipitor Assessment & Plan (04/23/2024 2:59 PM CHANNEL PROCESS SUPERVISOR): Impression: Chronic stable. Plan: Continue Lipitor Assessment & Plan (02/05/2020 3:13 PM CDT): Lipid panel needed. Will continue atorvastatin at full dose, no side effects reported thsu far Rheumatoid arthritis involvi ng multiple sites [...] tell her it was approved, but insurance [employer] made a new rule and the shots [...] 04/29/2022 Assessment & Plan (05/26/2018 4:53 PM CHANNEL PROCESS SUPERVISOR): Acute on chronic back pain Hx of [...] (cerebral infarction) Injury of finger 03/13/2012 09/18/2017 Immunizations Immunization Administration Dates Next Due Influenza, [...] 07/28/2018, TD Preservative Free 11/16/2012,01/19/2012 Tdap 06/21/2019 Social History Tobacco Use Types Packs/Day Years [...] materials from doctor or pharmacy Sometimes 04/19/2024 [facility] Utilities Answer Date Recorded In the past 12 months has e [employer], gas, oil, or water [employer] threatened to shut off services in your [...] week 03/13/2024 How often do you attend [facility] or restorationist services? More than 4 times per year 03/13/2024 Do you belong to any clubs o r organizations such as amish groups, unions, fraternal or athletic groups, or [...] staff should administer the PHQ-9) 6 08/07/2024 [facility] - Occupational Stress Questionnaire Answer Date [...] place to sleep or slept in a senior living (including now)? No 10/06/2020 PHQ-9 Answer Date [...] any time in the past [address] [facility], were you homeless or living in a senior living (including now)? No 03/13/2024 Personal Safety Answer [...] on file Legal Sex Female 10:47 AM CHANNEL PROCESS SUPERVISOR Gender Identity Not on file Sexual Orientation [...] 09/23/2024 10:17 AM CDT Plan of Treatment Not on file Medical Devices Implanted Type Area Carbide Operator Device Identifier Shelf Expiration Date Model / Serial / Lot [employer] Kindra 180-222 Contour 6fr 24cm Large Inner Lumen Low Profile Bladder Matt Taper Latex Free - [id number] Implanted:Qty: 1 on 02/18/2020 by Migue Reid MD at [facility] Explanted:03/24 by Migue Reid MD (Quantity not on file) Stent Right: Ureter [employer] Kindra 12/21/2022 180-222 / / [id number] Left Iliac Artery Angioplasty And Stent Left: Iliac Description:LEFT ILIAC ARTER Y ANGIOPLASTY AND STENT [employer] Kindra [id number] Synergy 2.5mm 20mm 144cm Radiopaque 1 Access Port Inflation Lumen - [id number] Implanted:Qty: 1 on 10/08/2018 by Ronen Nunes MD at [facility] [employer] Kindra 07/15/2020 [id number] / / [id number] [employer] Kindra [id number] Synergy 2.5mm 8mm 144cm Radiopaque 1 Access Port Inflation Lumen - [id number] Implanted:Qty: 1 on 10/08/2018 by Ronen Nunes MD at [facility] [employer] 11/25/2019 [id number] / / [id number] [employer] Kindra Patch Vascuguard 0.88cm [id number] - [id number] Implanted:Qty: 1 on 10/17/2023 by Robin Hernandez MD at [facility] Right: Common Carotid Artery [employer] Kindra [id number] 05/13/2025 [id number] / / [id number] Procedures Procedure Name Priority Date/Time Associated Diagnosis Comments CTA ABDOMINAL AORTA AND BILATERAL ILIOFEMORAL RUNOFF Schedule Routine, Read Routine (OP Routine) 09/18/2024 12:36 PM CDT Atherosclerosis of ivan[place] bay artery of both lower extremities with intermittent claudication US ARTERIAL DUPLEX LOWER EXTREMITY BILATERAL Schedule [...] 03/05/2024 9:01 AM CDT Screening for osteoporosis terminal operator current use of systemic steroids SCREENING MAMMOGRAM BILATERAL W RICHA Schedule Routine, Read Routine (OP Routine) 03/05/2024 8:54 AM CDT Breast cancer screening by mammogram HEPATITIS C ANTIBODY Routine 07/02/2023 2:41 PM CHANNEL PROCESS SUPERVISOR COLONOSCOPY 10/12/2022 10:12 AM CDT from Last 3 Months or Most Recently Relevant to Health Maintenance Results * CTA Abdominal Aorta And Bilateral Iliofemoral Runoff (09/18/2024 12:36 PM CDT) Anatomical Region Laterality Modality Body Bilateral Computed Tomogra phy 09/18/2024 2:20 PM CDT Narrative 09/18/2024 2:31 PM CDT EXAM DESCRIPTION: CTA ABDOMINAL AORTA AND BILATERAL ILIOFEMORAL RUNOFF REASON FOR STUDY: PVD PVD, Atherosclerosis of ivan[place] bay artery of both lower extremities with intermittent [...] patent distally. 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 Internal iliac arteries: [...] signed by Juarez WHITE T: Report ID: [id number] Reading Location: [place] [address] Procedure Note Juarez Veliz MD - 09/18/2024 EXAM DESCRIPTION: CTA ABDOMINAL AORTA AND BILATERAL ILIOFEMORAL RUNOFF REASON FOR STUDY: PVD PVD, Atherosclerosis of [place] artery of both lower extremities with intermittent [...] patent distally. PELVIC VASCULATURE: Common/external iliac arteries: [place]-Chunk arteries are chronicallyoccluded. Internal iliac arteries: Patent [...] signed by Juarez WHITE T: Report ID: [id number] Reading Location: [id number] us Robin Hernandez MD IMG CT PROCEDURES Final Result * US Arterial Duplex Lower Extremity Bilateral (08/27/2024 9:49 AM CDT) Anatomical Region Laterality Modality Vascular Bilateral Ultrasound 08/27/2024 8:59 AM CDT Narrative 08/27/2024 2:26 PM CDT Vascular & Vein Surgery [address] [place] [address] Lower Extremity Arterial Duplex Report Patient Name: ALFONSO YOU A : 1950 (74y 2m) Gender: F Study Date: 08/27/2024 08:59:54 AM Ht(Inch): Wt(Lb): BSA: Grass Farm Laborer: Location: [facility] Order Provider: ROBIN HERNANDEZ Quality: [...] exams. MEASUREMENTS: Right Value Left Value Rt IMPROVEMENT DIRECTOR Dst PSV 67.00 cm/sec Lt IMPROVEMENT DIRECTOR Dst PSV 298.00 cm/sec Rt Profunda Prx [...] MD - 08/27/2024 Vascular & Vein Surgery [address] [place] [address] Lower Extremity Arterial Duplex Report Patient Name: ALFONSO YOU A : 1950 (74y 2m) Gender: F Study Date: 08/27/2024 08:59:54 AM Ht(Inch): Wt(Lb): BSA: Grass Farm Laborer: IVY Location: [facility] Order Provider: ROBIN HERNANDEZ Quality: [...] exams. MEASUREMENTS: Right Value Left Value Rt IMPROVEMENT DIRECTOR Dst PSV 67.00 cm/sec Lt IMPROVEMENT DIRECTOR Dst PSV 298.00 cm/sec Rt Profunda Prx [...] PM CDT Vascular & Vein Surgery [address] [place] [address] Lower Extremity Arterial Doppler Report Patient Name: ALFONSO YOU A : 1950 Study Date: 08/27/2024 7:58:00 AM Gender: F Grass Farm Laborer: Edith Gandhi RVT Location: [facility] Ref Provider: [...] mmHg Lt Brachial Pressure 174 mmHg Rt STOCK SELECTOR Pressure 182 mmHg Lt STOCK SELECTOR Pressure 187 mmHg Rt DPA Pressure 183 [...] MD - 08/27/2024 Vascular & Vein Surgery [address] [place] [address] Lower Extremity Arterial Doppler Report Patient Name: ALFONSO YOU A : 1950 Study Date: 08/27/2024 7:58:00 AM Gender: F Grass Farm Laborer: Edith Gandhi RVT Location: [facility] Ref Provider: ROBIN HERNANDEZ Quality: Adequate Order [...] mmHg Lt Brachial Pressure 174 mmHg Rt STOCK SELECTOR Pressure 182 mmHg Lt STOCK SELECTOR Pressure 187 mmHg Rt DPA Pressure 183 [...] 2:26 PM CDT Vascular & Vein Surgery [facility] [place] [address] Abdominal Aortic Duplex Ultrasound Report Patient Name: ALFONSO YOU A : 1950 Study Date: 08/27/2024 8:10:07 AM Gender: F Grass Farm Laborer: IVY Location: [facility] Ref Provider: ROBIN HERNANDEZ [...] Measurements Measurement Value Units Location/Type Aobifem Inflow Ho-Chunk Artery PSV 69.00 cm/sec Anast Prx PSV 52.00 cm/sec BPG Prx PSV 43.00 cm/sec Rt Limb Prx PSV 106.00 cm/sec Rt Limb Mid PSV 58.00 cm/sec Rt Limb Dst PSV 52.00 cm/sec Anast Dst PSV 61.00 cm/sec Outflow [place] Artery PSV 67.00 cm/sec Lt Limb Prx PSV 121.00 cm/sec Lt Limb Mid PSV 82.00 cm/sec Lt Limb Dst PSV 64.00 cm/sec Anast Dst PSV 86.00 cm/sec Outflow [place]-Chunk Artery PSV 298.00 cm/sec FINDINGS: Study Quality: [...] MD - 08/27/2024 Vascular & Vein Surgery [address] [place] [address] Abdominal Aortic Duplex Ultrasound Report Patient Name: ALFONSO YOU A : 1950 Study Date: 08/27/2024 8:10:07 AM Gender: F Grass Farm Laborer: Location: [facility] Provider: ROBIN HERNANDEZ Quality: Adequate Order Provider: ROBIN HENRANDEZ PROCEDURES: Arterial Report: Abdominal Aorta Stent Graft [...] Measurements Measurement Value Units Location/Type Aobifem Inflow [place] Artery PSV 69.00 cm/sec Anast Prx PSV 52.00 cm/sec BPG Prx PSV 43.00 cm/sec Rt Limb Prx PSV 106.00 cm/sec Rt Limb Mid PSV 58.00 cm/sec Rt Limb Dst PSV 52.00 cm/sec Anast Dst PSV 61.00 cm/sec Outflow [place]-Chunk Artery PSV 67.00 cm/sec Lt Limb Prx PSV 121.00 cm/sec Lt Limb Mid PSV 82.00 cm/sec Lt Limb Dst PSV 64.00 cm/sec Anast Dst PSV 86.00 cm/sec Outflow [place]-Chunk Artery PSV 298.00 cm/sec FINDINGS: Study Quality: Adequate. Abdominal Aorta: Proximal aorta measures 2.87 x 3.02 cm. Atherosclerotic plaque noted.Patent aortobifemoral artery bypass graft with normal velocities. Elevated DEI131 cm/s at outflow artery on the left. [...] Robin Hernandez MD 08/27/2024 1:33:30 PM CDT Robin Hernandez MD [facility] [place] PROCEDURES Final Result * CT Lung [...] Paula Russo D.O. PS: PS Report ID: [id number] Reading Location: [place] [address] Procedure Note Paula Russo, DO - 03/07/2024 EXAM DESCRIPTION: CT LUNG [...] Paula Russo D.O. PS: PS Report ID: [id number] Reading Location: [id number] Ravindra Rowe MD IMG CT PROCEDURES Final [...] smoking and rheumatoid arthritis. Patient takes vitamin-D. Carbide Operator/Model: appssavvy (S/N [id number]) CLINICAL INFORMATION: Current height: 62 inches Maximum [...] Meena Cash M.D. TW: TW Report ID: [id number] Reading Location: [id number] Procedure Note Meena Cash MD - 03/05/2024 EXAM DESCRIPTION: DEXA AXIAL SKELETON BONE DENSITY 1 OR MORE SITES REASON FOR STUDY: 73 y/o year old F with given history of: Post menopausal status. Long-term and current use of steroids. History ofsmoking and rheumatoid arthritis. Patient takes vitamin-D. Carbide Operator/Model: FuturestateIT SL (S/N [id number]) CLINICAL INFORMATION: Current height: 62 inches Maximum [...] Meena Cash M.D. TW: MALCOM Report ID: [id number] Reading Location: [id number] Ravindra Rowe MD IMG DXA PROCEDURES Final [...] * Hepatitis C antibody (07/02/2023 2:41 PM CHANNEL PROCESS SUPERVISOR) Hep C Ab NON-REACTI VE NON-REACT BIAN[facility] Comment: HCV antibody was non-reactive. There is no laboratory evidence of HCV infection. In most cases, no further action is required. However, if recent HCV exposure is suspected, a test for HCV RNA (test code 85671) is suggested. For additional information please refer to http://education.Measurabl/faq/ZWJ22w0 (This link is being provided for informational/ educational purposes only.) 07/02/2023 2:41 PM CHANNEL PROCESS SUPERVISOR 07/02/2023 2:43 PM CHANNEL PROCESS SUPERVISOR Narrative [facility] - 07/04/2023 12:03 AM CHANNEL PROCESS SUPERVISOR FASTING:NO FASTING: NO Ravindra Rowe MD LAB MICROBIOLOGY - GENERAL ORDERABLES Final Result Performing Organization Address City/State/[facility] Co de Phone Number SUSAN [facility] [address] [place] [address] * COLONOSCOPY (10/12/2022 10:12 AM CDT) Anatomical Region Laterality Modality Other Narrative Procedure Note Henrik Cassidy MD - 10/12/2022 10:12 AM CDT [facility] Patient Name: Alfonso You Procedure Date: 10/12/2022 10:12 AM Date of : 1950 Admit Type: Outpatient Age: 72 Gender: Female Attending MD: Henrik Cassidy M.D. Room: [facility] ENDOSCOPY ROOM 2 Note Status: Finalized Patient [...] passed under direct vision.The Pediatric Colonoscope PCF-H190L [id number] was introduced through the anus and advanced [...] malignant neoplasm of colon CPT copyright 2020 [employer]. All rights reserved. The codes documented in this report are preliminary and upon insurance coder reviewmay be revised to meet current compliance requirements. Recognized by the [place] [employer] for promoting quality in endoscopy Henrik Cassidy MD ENDOSCOPY PROCEDURES Final Re sult from Last 3 Months or Most Recently Relevant to Health Maintenance Insurance AETNA MEDICARE GOLD [facility] MEDICARE Address: [facility] [id number] [place] [id number] A[employer] MEDICARE GOLD Advance Directives For more information, please contact: [phone] Documents on File Type Date Recorded Patient Aircraft Electrical Systems Specialist Expl anation ADVANCE DIRECTIVE 10/03/2023 2:29 PM Power of Sales Enablement Specialist-Medical ADVANCE DIRECTIVE 10/03/2023 1:53 PM DNR * [...] 9:59 AM 10/12/2022 9:59 AM Care Teams Roll Grinder Relationship Specialty Start Date End Date Ravindra Rowe MD PCP - General Family Medicine 11/14/16 [place] [address] [address] Surgeon General Surgery 09/30/17 [place] [address] [place] [address] Consulting Physician Cardiology 06/24/18 Liza Major, [place]LEY [address] [place] [address] Nurse Practitioner Nurse Practitioner 07/08/18 [place] [address] [facility] [place] [address] Consulting Physician Cardiovascular Disease 07/28/18 [place] [address] [place] [address] Consulting Physician Urology 03/16/20 [place] [address] [place] [address] Consulting Physician Nephrology 03/16/20 [place] [address] [facility] [address] [place] [id number] Referring Physician Launching Pad Mechanic 04/20/24
[2024-09-25 10:33] LABS: EDCOVIDSCREEN Negative (Negative); EDINFLUASCREEN Negative (Negative); EDINFLUBSCREEN Negative (Negative)
== END 2024-09-25 10:53 | disposition home or self-care (01) ==
PROVIDERS: Emergency Provider Nurse Practitioner; PCP Family Medicine
DX: J32.9 Chronic sinusitis, unspecified (principal); Z20.822 Contact with and (suspected) exposure to COVID-19; J44.9 Chronic obstructive pulmonary disease, unspecified; I25.10 Atherosclerotic heart disease of native coronary artery without angina pectoris; I10 Essential (primary) hypertension; E78.00 Pure hypercholesterolemia, unspecified; K21.9 Gastro-esophageal reflux disease without esophagitis; I72.9 Aneurysm of unspecified site
CPT/HCPCS: 87426; 87804; 99203; G0463

== ENCOUNTER 2024-10-07 10:54 | Emergency (ER) | payer MEDICARE, SELFPAY ==
[2024-10-07 11:00] VITALS: BP 164/59; PULSE 77; RESP 20; TEMP 36.6; O2SAT 95
--- NOTE | 2024-10-07 11:00 | ED.EAR ---
HPI - Ear Problem General Chief complaint: Ear Stated complaint: Ear Pain Time Seen by Provider: 10/07/24 11:00 Source: patient Mode of arrival: ambulatory Limitations: no limitations History of Present Illness HPI Narrative: 74 y/o female presented for c/o right ear pain.Onset this morning. Also reports this morning she noted the tongue and throat were swollen. This resolved after chewing ice and taking a benadryl. Currently denies throat swelling, tongue swelling, itching, numbness, or tingling. pt completed 10 days of augmentin 2 days ago for sinus infection, she was seen in clinic 09/25. MD Complaint: ear pain Related Data Home Medications ?Medication ?Instructions ?Recorded ?Confirmed ?Last Taken ?Type albuterol sulfate 90 mcg/actuation inhalation 09/25/24 Unknown History aerosol inhaler amlodipine 10 mg tablet mg 09/25/24 Unknown History aspirin 325 mg capsule 325 mg PO DAILY 09/25/24 Unknown History atorvastatin 80 mg tablet mg 09/25/24 Unknown History budesonide 160 mcg-glycopyr 9 inh inhalation 09/25/24 Unknown History mcg-formot 4.8 mcg/actuation HFA inhaler (Breztri Aerosphere) cephalexin 250 mg capsule mg 09/25/24 Unknown History escitalopram oxalate 10 mg tablet mg 09/25/24 Unknown History ferrous sulfate 325 mg (65 mg mg 09/25/24 Unknown History iron) tablet gabapentin 100 mg capsule mg 09/25/24 Unknown History lisinopril 10 mg tablet mg 09/25/24 Unknown History omeprazole 40 mg capsule,delayed mg 09/25/24 Unknown History release oxybutynin chloride 5 mg tablet mg 09/25/24 Unknown History tizanidine 4 mg tablet mg 09/25/24 Unknown History trazodone 50 mg tablet mg 09/25/24 Unknown History Allergies Allergy/AdvReac Type Severity Reaction Status Date / Time meperidine (From Demerol) Allergy Unknown Unknown Verified 10/07/24 11:05 varenicline (From Chantix) Allergy Unknown Hallucinati Verified 10/07/24 11:05 ng Review of Systems Review of Systems: CONSTITUTIONAL: Denies malaise, chills, or fever. EYES: Denies visual changes, redness, or discharge. ENT: Denies rhinorrhea, congestion, sinus pain, and sore throat. Reports ear pain CARDIOVASCULAR: Denies chest pain, palpitations, or edema. RESPIRATORY: Denies cough or dyspnea. GASTROINTESTINAL: Denies abdominal pain, nausea, vomiting, diarrhea SKIN: Denies rash or itching. MUSCULOSKELETAL: Denies myalgia. NEUROLOGIC: Denies headache. All systems reviewed & are unremarkable except as noted in HPI and below PMFSH Comments At time of signature, agree with nursing past medical, surgical, social and family history. There is no relevant family history pertinent to the presenting complaint Exam Narrative: GENERAL: Well-appearing, well-nourished, and in no acute distress. HEAD: Normocephalic EYES: PERRLA, conjunctivae clear ENT: Nares clear. Mucous membranes moist. TMs normal bilaterally. Oropharynx not erythematous without lesions or tongue swelling. no drooling, no hoarseness, no trismus, uvula midline. NECK: Supple. No lymphadenopathy CHEST: Clear to auscultation, breath sounds equal. No wheezing, rhonchi, rales, or stridor. No respiratory distress, speaks in full sentences. HEART: Regular rate and rhythm. No murmur heard. SKIN: Warm, dry, no rash. NEURO: Alert and oriented x3. PSYCH: Normal mood and affect Course Course Emergency Course: Patient is aware of diagnosis, understands and agrees to treatment plan. Anticipatory guidance given. Patient agrees to follow-up as directed and is aware of reasons to seek care at the emergency department. Portions of this record may have been created with voice recognition software Level of Care: Express Care Visit Vital Signs Vital signs: Reviewed Medical Decision Making MDM Narrative Medical decision making narrative: discussed physical exam findings, no apparent otitis media. Advised supportive measures and signs/symptoms to go to the ER. Patient is appropriate for outpatient treatment and follow-up. Differential Diagnosis Differential Diagnosis: Coronavirus, strep pharyngitis, allergic rhinitis, upper respiratory tract infection, sinusitis, rhinosinusitis, nasopharyngitis, viral pharyngitis, otitis media, otitis externa, eustachian tube dysfunction, foreign body, cerumen impaction. Discharge Plan Discharge Clinical Impression: Otalgia of right ear Patient Disposition: Home Condition: Stable Instructions: Antibiotic Form, Earache (ED) Additional Instructions: * if you develop tongue swelling, or numbness/tingling, lip or throat swelling or itching you must go to the ER immediately; call 911. Recommendations: antihistamine such as Benadryl, Zyrtec or Magdalena for sinus congestion Flonase nasal spray, 1 spray in each nostril once daily until symptoms improve Symptomatic treatment includes: rest, fluids, and increase humidity of the air at home. Tylenol 1000mg every 8 hours as needed to reduce fever, pain Please schedule a follow-up visit with your personal physician If your symptoms persist, change or worsen significantly, go to the emergency department for further evaluation. Patient Language: Montserratian Prescriptions: No Action atorvastatin 80 mg tablet trazodone 50 mg tablet tizanidine 4 mg tablet cephalexin 250 mg capsule omeprazole 40 mg capsule,delayed release(DR/EC) amlodipine 10 mg tablet ferrous sulfate 325 mg (65 mg iron) tablet lisinopril 10 mg tablet gabapentin 100 mg capsule albuterol sulfate 90 mcg/actuation HFA aerosol inhaler INHALATION oxybutynin chloride 5 mg tablet escitalopram oxalate 10 mg tablet Breztri Aerosphere 160-9-4.8 mcg/actuation HFA aerosol inhaler INHALATION aspirin 325 mg capsule 325 mg PO DAILY amoxicillin-pot clavulanate 875-125 mg tablet 1 tablet PO Q12H 10 Days Qty: 20 0RF Follow-up/Referrals: Soledad,Ravindra Aguilar MD [Primary Care Provider] - Time of Disposition: 11:14
--- OUTSIDE RECORDS SUMMARY | 2024-10-07 11:30 | XMS_ITS | Encounter Summary ---
Author Organization [facility] Healthcare Address [address] [place] [address] Care Team Providers Care Contract Coordinator Name Role Phone Ravindra Rowe MD Primary Care Provider Darrion Griffith MD Unavailable Gee Hardy MD Unavailable [phone] Reason for Visit * Reason Onset Date Comments Oral Swelling 10/07/2024 Encounter Details Date Type Department Care Team (Late st Contact Info) Description 10/07/2024 Nurse Triage [facility] Medical [facility] Primary Care at [address] [address] Ravindra Rowe MD [address] [place] [address] [address] [place] [address] Social History Tobacco Use Types Packs/Day Years Used Date Smoking Tobacco: Every Day Cigarettes 2 59.9 Started: 11/21/1964 Passive Smoke Exposure: Current Smokeless Tobacco: Never Comments:Smoking History Pac ks/day: [...] materials from doctor or pharmacy Sometimes 04/19/2024 [facility] Utilities Answer Date Recorded In the past 12 months has th e Open CS, gas, oil, or water company threatened to [...] 03/13/2024 How often do you attend chur or oriental orthodox services? More than 4 times per year 03/13/2024 Do you belong to any clubs o r organizations such as taoist groups, unions, fraternal or athletic groups, or school groups? No 03/13/2024 How often do you attend meet ings of the clubs or organizations you belong to? Never 03/13/2024 Are you , , di vorced, , never , or living with a partner? 03/13/2024 AUDIT-C Answer Date Recorded Q1: How often do you have a drink containing alcohol? Never 10/05/2024 Q2: How many drinks containi ng alcohol do you have on a typical day when you are drinking? Patient does not drink Q3: How often do you have si x or more drinks on one occasion? Never 10/05/2024 Overall Financial Resource Strain (CARDIA) Answe r Date Recorded How hard is it for you to pa y for the very basics like food, housing, medical care, and heating? Somewhat hard 03/13/2024 PHQ-2 Answer Date Recorded PHQ-2 Total Score (If total score is 3 or more points, staff should administer the PHQ-9) 6 08/07/2024 [facility] - Occupational Stress Questionnaire Answer Date Recorded [...] place to sleep or slept in a penitentiary (including now)? No 10/06/2020 PHQ-9 Answer Date [...] any time in the past 12 m [facility], were you homeless or living in a penitentiary (including now)? No 03/13/2024 Personal Safety Answer Date Recorded Have you ever been in or are you currently in a harmful physical or emotional relationship or is someone making you feel afraid or unsafe? Denies 10/05/2024 Education Answer Date Recorded What is the highest level of school you have completed or the highest degree you have received? 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 She also reports her throat feels like it is swelling and there is swelling externally to the face and neck. Patient has difficulty speaking due to the swelling. Disposition Call EMS 911 Now. Patient refuses 911. She reports her sister lives next door and will take her to the ED. RN discusses risk of airway compromise. Patient verbalizes understanding and agrees to ED now with sister. Nursing care advice also provided. Encouraged to call back if there are further questions or concerns. Encouraged to call back if symptoms persist or worsen. FYI refused 911 but agreed to ED with sister driving Reason for Disposition Facial swelling Protocols Used Tongue [id number] * Telephone Encounter - Madeleine Hayes RN - 10/07/2024 8:09 AM CDT Regarding: Tingling on face and swollen tongue and jaw line ----- Message from [place] R sent at 10/07/2024 8:08 AM CDT ----- Symptom Based Call Chief Complaint(s): Tingling on face and swollen tongue and jaw line Duration: Today What type of symptom(s) is the patient experiencing? Red Flag. Is the patient concerned they are experiencing a medical emergency requiring an ambulance? No Additional Comments: Patient woke with swollen tongue, neck at the jaw line and tingling in face Does message need to be routed? Yes-Action Needed documented in this encounter Plan of Treatment Upcoming Encounters Date Type Department Care Team (Latest Contact Info) Description 10/19/2024 10:10 AM CDT Hospital Encounter [facility] [place] [address] [place] [address] Uday Luu MD [address] [place] [address] [address] [place] [address] Pseudoaneurysm 10/19/2024 10:10 AM CDT Anesthesia Event [facility] [place] [address] [place] [address] Betsy Cherry NP [address] [place] [address] 10/19/2024 10:10 AM CDT - 10/19/2024 12:[address] 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
--- OUTSIDE RECORDS SUMMARY | 2024-10-07 11:30 | XMS_ITS | CONTINUITY OF CARE DOCUMENT ---
Author Name shirley watson Address Unknown Organization [facility] Address [id number] [place] [address] [address] [place] [address] Phone [phone] Care Team Providers Care Grading Supervisor Name Role Phone Kisha Mandel MD Unavailable [phone] Jaylin Simpson MD Unavailable Jaylin Simpson MD Unavailable PROBLEMS Condition Status Date Provider Notes PVD [...] In-person encounter Office Visit Kisha Mandel MD [facility] Chest pain - In-person encounter Office Visit Kisha Mandel MD [facility] Family History of Hypertension:SOBAbno rmal stress [...] [facility]y O'[facility]rent blood pressure, diastolic 70 mm[Hg] [facility] [place] blood pressure, systolic 140 mm[Hg] [facility] [place] pulse rate 74 /min Sendy O'[facility] oxygen saturation, oximetry 97 % [facility]y O'[facility] respiratory rate E&M 16 /min Sendy O'[facility] Body Mass Index (Ratio) 25.79 kg/m2 [facility] [place] weight E&M 141 [lb_av] Sendy O'Brent [...] Policy type / Coverage type Florina red democrat ID [facility] [id number] Other [id number] [place] MEDICARE PART B Medicare [id number] ADVANCE DIRECTIVES Name Date DISCUSSED - NO [...] EKG Kisha Mandel MD complet ed SNOMED-CT: [id number] Current Medications Documented Kisha Mandel MD completed SNOMED-CT: [id number] Physical Exam, Performed: Pulse Exam of Foot Kisha Mandel MD completed EKG Kisha Mandel MD complet ed SNOMED-CT: [id number] Current Medications Documented Kisha Mandel MD completed Stress EKG Juarez Morales MD completed Regadenoson, 4 units Juarez Morales MD completed Cardiolite, 2 units Juarez Morales MD completed SPECT Images Juarez Morales MD completed
--- OUTSIDE RECORDS SUMMARY | 2024-10-07 11:30 | XMS_ITS | Encounter Summary ---
Author Organization [facility] Healthcare Address [address] [place] [address] Care Team Providers Care Bean Dumper Name Role Phone Ravindra Rowe MD Primary Care Provider [phone] Darrion Griffith MD Unavailable Ronen Nunes MD Unavailable [phone] Liza Major NP Unavailable Juarez Pulido MD Unavailable [phone] Shane Hays MD Unavailable [phone] Migue Reid MD Unavailable [phone] Carlos Amaya MD Unavailable Carine Khan RN Unavailable [phone] Sophy Bravo CMA Unavailable [phone] Sujata Noonan MA Unavailable Cintia Carroll RN Unavailable Thao Abdullahi MA Unavailable Fiorella Oscar MD Unavailable [phone] Gee Hardy MD Unavailable [phone] Encounter Details Date Type Department Care Team (Late st Contact Info) Description 07/15/2020 Telephone [facility] [address] [place] [address] Hill, Ella, RT Social History Tobacco Use Types Packs/Day [...] than three times a week 02/05/2020 Attends [employer] Not on file 02/04 Active Member [...] staff should administer the PHQ-9) 6 07/15/2020 [facility] - [facility] [...] on file 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 Gender Identity Not on file Sexual Orientation Straight 03/13/2020 10 :06 AM CDT 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 file Not on file documented as of this encounter Plan of Treatment Upcoming Encounters Date Type Department Care Team (Latest Contact Info) Description 10/19/2024 10:10 AM CDT Hospital Encounter [facility] [place] [address] [place] [address] Uday Luu MD [facility] [address] [place] [address] Pseudoaneurysm 10/19/2024 10:10 AM CDT Anesthesia Event [facility] [place] [address] [place] [address] Betsy Cherry NP [address] [place] [address] 10/19/2024 10:10 AM CDT - 10/19/2024 12:50 PM CDT Surgery [facility] [place] [address] [place] [address] Uday Luu MD [address] [facility] [address] [place] [address] 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 documented as of this encounter Visit Diagnoses Not on filedocumented in this encounter Additional Health Concerns Infection Onset Date Last Indicated Resolved Time COVID: Suspected 02/15/2023 02/16/2023 02/16/2023 1:17 AM CDT COVID: Suspected 02/20/2023 02/20/2023 02/20/2023 8:33 PM CDT documented as of this encounter Care Teams Bean Dumper Relationship Specialty Start Date End Date Ravindra Rowe MD PCP - General Family Medicine 11/14/16 [place] [address] [address] [place] [address] Surgeon General Surgery 09/30/17 [place] [address] [address] [place] [address] Consulting Physician Cardiology 06/24/18 10/04/24 Liza Major, LESLEY [address] [address] [place] [address] Nurse Practitioner Nurse Practitioner 07/08/18 10/04/24 [place] [address] [address] [place] [address] Consulting Physician Cardiovascular Disease 07/28/18 Shane Hays MD [address] [facility] [address] [place] [address] Consulting Physician Rheumatology 02/18/19 12/31/23 Migue Reid MD [address] [place] [address] Consulting Physician Urology 03/16/20 10/04/24 Carlos Amaya MD [address] [place] [address] Consulting Physician Nephrology 03/16/20 10/04/24 Carine Khan, ISHA [address] [place] [address] [address] [place] [address] Bilingual Student Tutor 09/28/20 10/24/20 Sophy Bravo CMA [address] [place] [address] [address] [place] [address] ACO Care Infant Babysitter 02/20/23 02/20/23 Sujata Noonan MA [address] [place] [address] [address] [place] [address] ACO Care Infant Babysitter 10/21/23 10/23/23 Cintia Carroll RN [address] [place] [address] [address] [place] [address] Bilingual Student Tutor 01/14/24 02/13/24 Thao Abdullahi MA [address] [place] [address] [address] [place] [address] ACO Care Infant Babysitter 03/16/24 03/17/24 [place] [address] [facility] [address] [place] [address] Referring Physician Wine Manager 04/20/24 10/04/24 Gee Hardy MD [address] [facility] [address] [place], [place] [id number] Consulting Physician Cardiology 10/05/24 documented as of this encounter
--- OUTSIDE RECORDS SUMMARY | 2024-10-07 11:30 | XMS_ITS | Clinical Summary ---
Author Organization [facility] Address [address] [place] [address] Care Team Providers Care Computer Systems Administrator Name Role Phone Ravindra Rowe MD Primary Care Provider [phone] Darrion Griffith MD Unavailable [phone] Gee Hardy MD Unavailable Allergies Active Allergy Reactions Criticality Noted Date [...] mouth daily 30 tablet 11 07/23/19 24 026 Active Additional Information Patient taking differently:325 mg oralNightly, Indications: prevention of thrombosis, Informant: Self, Reported on 10/05/2024 calcium carbonate-vitami n D3 1500 mg (600 mg elemental) -200 units per tabletIndication s:Vitamin D Deficiency Take 1 tablet by mouth nightly 600mg with 500 units vitamin d Active docusate sodium (STOOL SOFTENER ORAL) Take 1 tablet by mouth daily as needed Active oxygenIndication s:Dyspnea Inhale 2 L/min as needed (SOB). at hs Indications: trouble breathing Active nystatin 100,000 unit/mL suspension Take 5 mL (500,000 Units total) by mouth 4 (four) times a day as needed (For oral thrush related to inhaler use) 06/12/19 Active amLODIPine (NORVASC) 10 mg tabletIndication s:hypertension Take 1 tablet (10 mg total) by mouth daily 90 tablet 1 04/07/20 Active atorvastatin (LIPITOR) 80 mg tabletIndication s:hyperlipidemia Take 1 tablet (80 mg total) by mouth nightly 90 tablet 3 04/07/20 24 Active budesonide-glyco pyr-formoterol (Breztri Aerosphere) 160-9-4.8 mcg/actuation inhalerIndicatio ns:Bronchospasm Prevention with COPD Inhale 2 puffs 2 (two) times a day 3 each 3 04/07/20 24 Active escitalopram (LEXAPRO) 10 mg tabletIndication s:Generalized [...] daily 90 capsule 3 04/07/20 24 Active tiZANidine (ZANAFLEX) 4 mg tabletIndication s:Muscle Spasm [...] 30 tablet 1 04/20/20 24 025 Active Additional Information Patient not taking.Reason: not taking, Informant: Self, Reported on 10/05/2024 traZODone (DESYREL) 50 mg tabletIndication s:insomnia associated with depression Take 3 tablets (150 mg total) by mouth nightly 08/08/19 25 026 Active gabapentin (NEURONTIN) 100 mg capsuleIndicatio ns:Neuropathic Pain Take 2 capsules (200 mg total) by mouth 3 (three) times a day 180 capsule 11 09/12/19 25 026 Active cephalexin (KEFLEX) 250 mg capsuleIndicatio ns:Urinary Tract/Genitourin yury Infection Take 1 capsule (250 mg total) by mouth nightly 90 capsule 09/29/19 25 Active vitamin B complex capsuleIndicatio ns:Vitamin Deficiency Take 1 capsule by mouth daily 025 Discontin ued(Thera py completed ) oxyBUTYnin (DITROPAN) 5 mg tabletIndication s:Urinary Urge Incontinence Take 1 tablet (5 mg total) by mouth 2 (two) times a day 180 tablet 2 04/07/20 24 025 Discontin ued(Thera py completed ) roflumilast (DALIRESP) 500 mcg tabletIndication s:Prevention of Bronchospasm with Chronic Bronchitis Take 1 tablet (500 mcg total) by mouth daily 90 tablet 3 04/24/20 24 025 Discontin ued(Thera py completed ) cephalexin (KEFLEX) 250 mg capsuleIndicatio ns:Urinary Tract/Genitourin yury Infection TAKE 1 CAPSULE (250 MG TOTAL) BY MOUTH NIGHTLY 90 capsule 07/10/19 25 025 Discontin ued(Reord er) gabapentin (NEURONTIN) 100 mg capsuleIndicatio ns:Neuropathic Pain Take 2 capsules (200 mg total) by mouth 3 (three) times a day 08/08/19 25 025 Discontin ued(Reord er) Active Problems Problem Noted Date Diagnosed Date Preop cardiovascular exam 10/05/2024 Pseudoaneurysm 09/28/2024 Assessment & Plan (09/28/2024 12:08 PM CDT): 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 Both of these we will need to be repaired with a hybrid approach open repair of the right groin risks benefits alternatives were discussed. She wished proceed. Endovascular repair concurrently. S/P aortobifemoral bypass surgery 04/23/2024 Assessment & Plan (09/28/2024 12:08 PM CDT): Status post aortobifemoral artery bypass years ago, on CT has a 5 cm saccular aneurysms or pseudoaneurysms right at the aortic proximal anastomosis, this will need to be repaired given risk of rupture. Risks benefits and alternatives of endovascular abdominal aortic aneurysm repair were discussed risks including bleeding, infection, perforation, contrast induced nephropathy, dissection, thrombosis, distal embolization, renal failure, mesenteric ischemia, ischemia to the lower extremities, pelvis, OK stroke and . She wished proceed. We discussed this would be done at the same time of her open repair of her right common femoral artery anastomotic pseudoaneurysms. Assessment & Plan (09/04/2024 10:51 AM CDT): 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 CTA abdomen pelvis ordered for further evaluation. Assessment & Plan (04/23/2024 2:58 PM PANTOGRAPH MACHINE SET UP OPERATOR): Impression: Patient has a history of an aortobifemoral bypass graft performed at an outside facility in 2015. Patient has not had any formal surveillance [...] previously exhibited some possible slight ataxia on [id number] with intention tremor and overshoot as well [...] evaluation Assessment & Plan (04/27/2024 2:14 PM PANTOGRAPH MACHINE SET UP OPERATOR): Ms. You is a 73 y.o. female [...] does appear to have some ataxia on [id number] with intention tremor and overshoot as well [...] 07/2024 Assessment & Plan (03/30/2024 10:11 AM PANTOGRAPH MACHINE SET UP OPERATOR): Ms. You is a 73 y.o. female [...] (02/24/2020): Added automatically from request for surgery [id number] Encounter for Medicare annual wellness exam 01/18 Assessment & Plan (04/30/2023 1:53 PM PANTOGRAPH MACHINE SET UP OPERATOR): A(n) yearly Medicare Annual Wellness Visit has [...] months Assessment & Plan (04/29/2022 12:09 PM PANTOGRAPH MACHINE SET UP OPERATOR): A(n) yearly Medicare Annual Wellness Visit has [...] (01/18/2020): Added automatically from request for surgery [id number] Bilateral carotid artery stenosis 04/01/2019 Assessment & Plan (04/23/2024 2:50 PM PANTOGRAPH MACHINE SET UP OPERATOR): Impression: Patient is status post right carotid [...] aspirin History of pancreatitis 11/07/2018 Atherosclerosis of [place] co ronary artery of [place] heart without angina pectoris 10/06/2018 Overview (10/06/2018): Added automatically from request for surgery [id number] Dehydration 09/29/2018 Hypotension due to hypovolemia 09/29/2018 Abnormal mammogram of right breast 08/01/2018 Coronary artery disease of n ative artery of [place] heart with stable angina pectoris 07/28/2018 Assessment & Plan (01/08/2024 8:31 PM CDT): Patient had a nuclear medicine stress test 09/2023 with hyperdynamic global left ventricular systolic function of 80%, and myocardial perfusion imaging that was normal, negative test. Patient also had a mobile desk monitor that identified a 1% burden of PVCs and had 2 events ventricular tachycardia. - continue with aspirin and statin Assessment & Plan (02/05/2020 3:18 PM CDT): Continues to follow up with brass reclaimer. Occasional chest pain continues, she is scheduled [...] se Assessment & Plan (04/04/2020 3:04 PM PANTOGRAPH MACHINE SET UP OPERATOR): Will stop cymbalta Continuing Paxil as current [...] clonazepam for anxiety control. Fibromyalgia 11/02/2014 Other exterminator (current) drug therapy 5 Cervicalgia 02/11/2014 Essential hypertension 10/27/2013 Overview (06/03/2017): Hypertension Assessment & Plan (09/04/2024 10:51 AM CDT): Stable continue lisinopril Assessment & Plan (04/23/2024 2:58 PM PANTOGRAPH MACHINE SET UP OPERATOR): Impression: Chronic and stable. Plan: Continue amlodipine, [...] recollection, but was significant in the ER. Corporate Sales Manager has reduced that, and recommend increase in lisinopril if needed. Renal panel pending Hyperlipidemia LDL goal <70 10/27/2013 Overview (08/25/2016): HLD - Hyperlipidaemia Assessment & Plan (09/28/2024 12:08 PM CDT): Stable continue Lipitor Assessment & Plan (09/04/2024 10:51 AM CDT): Stable continue Lipitor Assessment & Plan (04/23/2024 2:59 PM PANTOGRAPH MACHINE SET UP OPERATOR): Impression: Chronic stable. Plan: Continue Lipitor Assessment [...] 04/29/2022 Assessment & Plan (05/26/2018 4:53 PM PANTOGRAPH MACHINE SET UP OPERATOR): Acute on chronic back pain Hx of [...] Encounters Date Type Department Care Team Description 10/07/2024 Nurse Triage [facility] Primary Care at [address] [address] Ravindra Rowe MD 10/05/2024 12:30 PM CDT Pre-Admission Testing [facility] PreAdmission Testing [address] [place] [address] Pseudoaneurysm; Other disorder of circulatory system 10/05/2024 8:00 AM CDT Office Visit [facility] Cardiology at [address] [place] [address] Gee Hardy MD Preop cardiovascular exam (Primary Dx); Tobacco use; Coronary artery disease of [place] artery of [place] heart with stable angina pectoris; Essential hypertension; Hyperlipidemia LDL goal <70 10/01/2024 Documentation [facility] Vascular and Vein Surgery [address] [facility] [address] [place] [address] Janett More MA 09/23/2024 10:00 AM CDT Office Visit [facility] Vascular at [address] [place] [address] Robin Hernandez MD S/P aortobifemoral bypass surgery (Primary Dx); Pseudoaneurysm; Hyperlipidemia LDL goal <70 09/18/2024 12:14 PM CDT - 09/18/2024 11:59 PM CDT Hospital Encounter [facility] [place] [address] [place] [address] Atherosclerosis of [place] artery of both lower extremities with intermittent claudication Discharge Disposition: Discharge to home or self care 09/03/2024 Telephone [facility] Vascular and Vein Surgery at [address] [place] [address] La Nena Rudd 09/02/2024 10:00 AM CDT Office Visit [facility] Vascular at [address] [place] [phone] Robin Hernandez MD S/P aortobifemoral bypass surgery (Primary Dx); Hyperlipidemia LDL goal <70; Essential hypertension 09/02/2024 Orders Only [facility] Vascular at [address] [place] [address] Robin Hernandez MD Atherosclerosis of [place] artery of both lower extremities with intermittent claudication (Primary Dx) 08/28/2024 Telephone [facility] Vascular and Vein Surgery [address] [facility] [address] [place] [address] Janett More MA 08/27/2024 9:00 AM CDT Ancillary Procedure [facility] Vascular and Vein Surgery at [address] [place] [address] S/P aortobifemoral bypass surgery; Other specified symptoms and signs involving the circulatory and respiratory systems 08/27/2024 9:00 AM CDT Ancillary Procedure [facility] Vascular and Vein Surgery at [address] [place] [address] S/P aortobifemoral bypass surgery; Other specified symptoms and signs involving the circulatory and respiratory systems 08/27/2024 8:00 AM CDT Ancillary Procedure [facility] Vascular and Vein Surgery at [address] [place] [phone] S/P aortobifemoral bypass surgery 08/27/2024 Telephone [facility] Movement Disorders [facility] [address] [address] Clara Ramirez NP 08/20/2024 Orders Only [facility] Primary Care at [address] [address] Ravindra Rowe MD Mixed anxiety and depressive disorder (Primary Dx) 08/12/2024 12:00 PM CDT Clinical Support [facility] Movement Disorders [address] [place] [phone] Tremor 08/12/2024 10:30 AM CDT Office Visit [facility] Movement Disorders [address] [place] [phone] Clara Ramirez NP RLS (restless legs syndrome) (Primary Dx); Tremor; Other iron deficiency anemia; Iron deficiency anemia, unspecified iron deficiency anemia type; Cognitive impairment; Imbalance; Dysphagia, unspecified type 08/11/2024 Orders Only [facility] Vascular at [address] [place] [phone] Robin Hernandez MD S/P aortobifemoral bypass surgery (Primary Dx) 08/11/2024 Telephone [facility] Vascular and Vein Surgery [address] [phone] Janett More MA 08/11/2024 Orders Only [facility] Vascular and Vein Surgery [address] [facility] [address] [place] [phone] Robin Hernandez MD S/P aortobifemoral bypass surgery (Primary Dx); Other specified symptoms and signs involving the circulatory and respiratory systems 08/07/2024 10:15 AM CDT Office Visit [facility] Primary Care at [address] [address] Ravindra Rowe MD Panlobular emphysema (HCC) (Primary Dx); Hyperlipidemia LDL goal <70; Cerebrovascular disease; Essential hypertension; Mixed anxiety and depressive disorder; Rheumatoid arthritis involving multiple sites with positive rheumatoid factor (HCC); Left hemiparesis (HCC); Other psychoactive substance use, unspecified with withdrawal, unspecified (HCC); Myoclonic jerking; Resting tremor; Femoral artery aneurysm, right 08/07/2024 Telephone [facility] Primary Care at [address] [address] cancelled needs prior auth 08/07/2024 Telephone [facility] Primary Care at [address] [address] Ravindra Rowe MD Medical Question/Miscellaneou s 07/23/2024 5:49 PM PANTOGRAPH MACHINE SET UP OPERATOR - 07/23/2024 11:59 PM PANTOGRAPH MACHINE SET UP OPERATOR Hospital Encounter [facility] Emergency, Room [...] STENT ABDOMINAL AORTA STENT ANGIO SELECTIVE CAROTID TRACK CAR OPERATOR LEFT 09/26/2020 Left APPENDECTOMY CARDIAC CATHETERIZATION 2018, 11/2020 COLONOSCOPY 10/12/2022 normal ESOPHAGOGASTRODUODENOSCOPY h/o dilations every 5-7 years HAND SURGERY Left left hand, surgery from table saw injury CATARACT EXTRACTION W/ INTRA OCULAR LENS IMPLANT, BILATERAL 05/20/2023 - 05/19/2024 CYSTOCELE REPAIR 05/20/2004 - 05/19/2005 RECTOCELE REPAIR 05/20/2004 - 05/19/2005 BLEPHAROPLASTY URETEROSCOPY 02/18/2020 with stent placement URETEROSCOPY 03/24/2020 with stent removal ANGIOPLASTY 2019 CATARACT EXTRACTION 2023 SHUNT EXTERNALIZATION BLADDER SURGERY 2020 CAROTID ENDARTERECTOMY 2022 Right CORONARY STENT PLACEMENT Medical History Medical History Date Comments Hypertension Hypertension Depression Depression Hx Other Medical 2011 accident with t able saw to left hand - partial amputation of ring finger Rheumatoid arthritis (HCC) Hyperlipidemia Hyperlipidemia; Comments: DNT 10/27/2013 - COPD (chronic obstructive pu lmonary disease) (HCC) Asthma Back pain Anxiety Urinary incontinence wears Depen ds, hx of bladder/rectal prolapse Cerebrovascular accident (CVA) (HCC) x2, last 2023; only residual is left leg, mild weakness, able to walk with no assist Coronary artery disease cardiac stents x 2 Cancer (HCC) skin cancer jennifer ana in the office Emphysema of lung (HCC) Sick sinus syndrome (HCC) pt den ies and not in 's [...] the cause Sjogren syndrome, unspecified Full dentures full upper and p artial lower dentures HL (hearing loss) has aids but o nly wears when watching TV RLS (restless legs syndrome) PAD (peripheral artery disease) Non-sustained ventricular ta chycardia (HCC) hx of Chronic cough taking Guaifenas in prn History of UTI h/o frequent UTI 's d/t scarring in bladder. takes prophylactic Keflex at bedtime Easy bruising Heart disease 2019 Neuromuscular disorder (HCC) 2021 Autoimmune disease 10 yrs Infection Chronic bronchitis (HCC) TIA (transient ischemic attack) Peripheral neuropathy Fibromyalgia, primary Vitamin D deficiency Fatigue Restless leg syndrome Tremors of nervous system Seasonal allergies Wears glasses GERD (gastroesophageal reflux disease) Constipation Arthritis Herniated disc, cervical and lumbar Pseudoaneurysm History of heart artery stent Family History Medical History Relation Name Comments Asthma Brother 1 Nacho Arreguin Asthma; Asthma Brother 2 Nacho Amaya Jr . brother Cancer Brother 2 Nacho Amaya Jr . brother Alcohol abuse Father Nacho Ocampo Alcoholism; Arthritis Father Nacho Ocampo Cancer Father Nacho Ocampo Depression Father Nacho Ocampo Glaucoma Father Nacho Ocampo Glaucoma; Hypertension Father Nacho Ocampo Lymphoma Father Nacho Ocampo Cancer -lymphom a; Non-Hodgkin's Lymphoma Father Nacho Ocampo Non-H odgkin's lymphoma; Stroke Maternal Grandfather Channing Butcher Stroke; Stroke Maternal Grandmother Easter Down en maternal grans mother Alcohol abuse Mother Kathia Amaya Alcoholism; COPD Mother Kathia Amaya Cancer Mother Kathia Amaya Colon cancer Mother Kathia Amaya Cancer, colon; Depression Mother Kathia Amaya Hypertension Mother Kathia Amaya Hypertension; Other Mother Kathia Amaya Cancer -rectal; Cause of : Cancer -rectal Cancer Mother's Brother Tom butcher Lymphoma Mother's Brother Tom bucther Lymphoma; Asthma Other 1 Family history of Asthma; Cancer Other 2 Ashlee delgadillo Family history of Cancer -; Hypertension Other 3 Family history of Hypertension; Osteoporosis Other 4 Family history of Osteoporosis; Stroke Paternal Grandfather [place] Downen Cancer Paternal Grandmother Ashlee Hypertension Paternal Grandmother Ashlee Arthritis Sister 1 ashlee delgadillo Breast cancer Sister 1 ashlee elie Cancer Sister 1 ashlee elie Hypertension Sister 1 ashlee delgadillo Hypertension; Stroke Sister 1 ashlee elie Arthritis Sister 2 Ashlee elie arthritis; COPD Sister 2 Ashlee elie Depression Sister 2 Ashlee elie Restless legs syndrome Sister 3 Ashlee elie Rheum arthritis Sister 4 Ashlee delgadillo Relation Name Status Comments Brother 1 Nacho Arreguin Brother 2 Nacho Amaya Jr. brother Father Nacho Sr Maternal Grandfather Chaninng Downen Maternal Grandmother Easter Downen maternal grans moth er Mother Kathia Amaya (Age 56) Mother's Brother Tom butcher Other 1 Other 2 Ashleekrystin delgadillo Other 3 Other 4 Paternal Grandfather [place] Downen Paternal Grandmother Ashlee Sister 1 ashlee elie Alive Sister 2 Ashlee elie Sister 3 Ashlee elie Alive Sister 4 Ashlee elie Alive Social History Tobacco Use Types Packs/Day Years Used Date Smoking Tobacco: Every Day Cigarettes 2 59.9 Started: 11/21/1964 Passive Smoke Exposure: Current Smokeless Tobacco: Never Tobacco Cessation:Ready to Q uit: No; Counseling Given: Yes Comments:Smoking History Packs/day: 1 1/2 Pack/day. Quit [...] materials from doctor or pharmacy Sometimes 04/19/2024 [facility] Utilities Answer Date Recorded In the past 12 months has th e [place] [employer], gas, oil, or water [employer] threatened to shut off services in your [...] How often do you attend chur or shinto services? More than 4 times per year 03/13/2024 Do you belong to any clubs o r organizations such as confucianist groups, unions, fraternal or athletic groups, or [...] staff should administer the PHQ-9) 6 08/07/2024 [facility] - Occupational [...] place to sleep or slept in a care home (including now)? No 10/06/2020 PHQ-9 Answer Date [...] any time in the past 12 m [facility], were you homeless or living in a care home (including now)? No 03/13/2024 Personal Safety Answer [...] on file Legal Sex Female 10:47 AM PANTOGRAPH MACHINE SET UP OPERATOR Gender Identity Not on file Sexual Orientation [...] Sign Reading Time Taken Comments Blood Pressure 182/72 10/05/2024 10:50 AM CDT manual rt Pulse 75 10/05/2024 10:50 AM CDT Temperature 36.4 C (97.5 F) 10/05/2024 10:50 AM CDT Respiratory Rate 20 10/05/2024 10:5 0 AM CDT Oxygen Saturation 99% 10/05/2024 10: 50 AM CDT Inhaled Oxygen Concentration - - Weight 48.9 kg (107 lb 12.8 oz) 025 10:50 AM CDT Height 157.5 cm (5' 2 ) 10/05/2024 10:5 0 AM CDT Body Mass Index 19.72 10/05/2024 10:50 AM CDT Plan of Treatment Upcoming Encounters Date Type Department Care Team (Latest Contact Info) Description 10/19/2024 10:10 AM CDT Hospital Encounter [facility] [place] [address] [place] [phone] Robin Hernandez MD [address] [facility] [address] [place] [address] Pseudoaneurysm 10/19/2024 10:10 AM CDT Anesthesia Event [facility] [place] [address] [place] [phone] Betsy Cherry NP [address] [place] [address] 10/19/2024 10:10 AM CDT - 10/19/2024 12:50 PM CDT Surgery [facility] Main OR [address] [place] [address] Robin Hernandez MD [address] [facility] [place] [address] 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 Health Maintenance Due Date Last Done Comments Hepatitis B Screening 1968 Well Visit 65+ 04/30/2024 04/30/2023, 1210/2021, 02/06/2021, Additional history exists Covid-19 Vaccine ( season) 2024 04/08/2024, 10/11/2021, 03/25/2021, Additional history exists Breast Cancer Screening-Mammogram 03/05/2025 03/05/2024, 10/31/2021, 07/29/2018, Additional history exists Lung Cancer Screening 03/06/2025 03/05/2024 , 01/16/2023, 02/17/2021, Additional history exists Zoster Vaccine (1 of 2) 08/07/2025 Post poned from 1970 (Insurance / Financial) Depression Screening 08/12/2025 08/12/2024, 08/07/2024, 04/20/2024, Additional history exists Fall Risk Assessment 10/05/2025 10/05/2024, 01/15/2024, 04/30/2023, Additional history exists Osteoporosis Screening-Bone Density Scan [...] history exists Medical Devices Implanted Type Area Wire Sawyer Device Identifier Shelf Expiration Date Model / Serial / Lot [employer] Kindra 180-222 Contour 6fr 24cm Large Inner Lumen Low Profile Bladder Matt Taper Latex Free - [id number] Implanted:Qty: 1 on 02/18/2020 by Migue Reid MD at [facility] Explanted:03/24 by Migue Reid MD (Quantity not on file) Stent Right: Ureter [employer] Kindra 12/21/2022 180-222 / / [id number] Left Iliac Artery Angioplasty And Stent Left: Iliac Description:LEFT ILIAC ARTER Y ANGIOPLASTY AND STENT [employer] Kindra [id number] Synergy 2.5mm 20mm 144cm Radiopaque 1 Access Port Inflation Lumen - [id number] Implanted:Qty: 1 on 10/08/2018 by Ronen Nunes MD at [facility] [employer] Kindra 07/15/2020 [id number] / / [id number] [employer] Kindra [id number] Synergy 2.5mm 8mm 144cm Radiopaque 1 Access Port Inflation Lumen - [id number] Implanted:Qty: 1 on 10/08/2018 by Ronen Nunes MD at [facility] [employer] Kindra 11/25/2019 [id number] / / [id number] [employer] Kindra Patch Vascuguard 0.88cm [id number] - [id number] Implanted:Qty: 1 on 10/17/2023 by Robin Hernandez MD at [facility] Right: Common Carotid Artery [employer] Kindra [id number] 05/13/2025 [id number] / / [id number] Procedures Procedure Name Priority Date/Time Associated Diagnosis Comments ELECTROCARDIOGRAM REPORT Routine 10/05/2024 1:41 PM CDT Preop cardiovascular exam EGFR Routine 10/05/2024 10:34 AM CDT Pseudoaneurysm DIFFERENTIAL AUTO Routine 10/05/2024 10:34 AM CDT Pseudoaneurysm ANTIBODY SCREEN Routine 10/05/2024 10:34 AM CDT Pseudoaneurysm ABO/RH Routine 10/05/2024 10:34 AM CDT Pseudoaneurysm COMPREHENSIVE METABOLIC PANEL Routine 10/05/2024 10:34 AM CDT Pseudoaneurysm CBC WITH AUTO DIFFERENTIAL Routine 10/05/2024 10:34 AM CDT Pseudoaneurysm TYPE AND SCREEN 14 DAY Routine 10:34 AM CDT Pseudoaneurysm PROTIME-INR Routine 10/05/2024 10:34 AM CDT Pseudoaneurysm Other disorder of circulatory system APTT Routine 10/05/2024 10:34 AM CDT Pseudoaneurysm Other disorder of circulatory system POCT LIPID PANEL Routine 10/05/2024 7:55 AM CDT Coronary artery disease of [place] artery of [place] heart with stable angina pectoris Hyperlipidemia LDL goal <70 CTA ABDOMINAL AORTA AND BILATERAL ILIOFEMORAL RUNOFF Schedule Routine, Read Routine (OP Routine) 09/18/2024 12:36 PM CDT Atherosclerosis of [place] artery of both lower extremities with intermittent [...] 03/05/2024 9:01 AM CDT Screening for osteoporosis exterminator current use of systemic steroids SCREENING MAMMOGRAM BILATERAL W RICHA Schedule Routine, Read Routine (OP Routine) 03/05/2024 8:54 AM CDT Breast cancer screening by mammogram HEPATITIS C ANTIBODY Routine 07/02/2023 2:41 PM PANTOGRAPH MACHINE SET UP OPERATOR COLONOSCOPY 10/12/2022 10:12 AM CDT from Last 3 Months or Most Recently Relevant to Health Maintenance Results * Electrocardiogram Report (10/05/2024 1:41 PM CDT) us Gee Hardy MD ECG ORDERABLES Final Res ult * eGFR (10/05/2024 10:34 AM CDT) eGFR 90 >=60 mL/min/1. 73 m2 Comment: Interpretive Data Reference Interval Normal >/= 90 mL/min/1.73m2 Mildly decreased* 60 - 89 mL/min/1.73m2 Mildly to moderately decreased 45 - 59 mL/min/1.73m2 Moderately to severely decreased 30 - 44 mL/min/1.73m2 Severely decreased 15 - 29 mL/min/1.73m2 Kidney Failure < 15 mL/min/1.73m2 *Relative to young adult level Estimated glomerular filtration rate is determined by the 2020 CKD-EPI equation recommended by the National Kidney Foundation (A Unifying Approach to GFR Estimation: Recommendations of the NKF-ASK Task Force on Reassessing the Inclusion of Race in Diagnosing Kidney Disease, JASN 202). The CKD-EPI equation should not be used for patients with unstable renal function and has not been validated in children and those over 70. Current interpretive data was last reviewed 2021. Blood 10/05/2024 10:3 4 AM CDT 10/05/2024 10:38 AM CDT us Robin Hernandez MD LAB BLOOD ORDERABLES Final Resul t [facility] [address] [facility] Department [place] [address] * Differential, auto (10/05/2024 10:34 AM CDT) Neutrophil abs 3.18 1.50 - 6.50 K/cumm Imm gran abs 0.03 0.00 - 0.10 K/cumm [facility] Lymphocyte abs 2.02 0.80 - 3.30 K/cumm [facility] Monocyte abs 0.67 0.20 - 0.80 K/cumm [facility] Eosinophil abs 0.10 0.00 - 0.50 K/cumm [facility] Basophil abs 0.04 0.00 - 0.10 K/cumm [facility] Neutrophil pct 52.6 % [facility] Comment: Interpretive Data Percent cell count reference ranges are not reported, since discordance with absolute values may lead to misinterpretation of CBC data. Current Interpretive Data was last revised on 2017. Imm gran pct 0.5 % [facility] Comment: Interpretive Data Percent cell count reference ranges are not reported, since discordance with absolute values may lead to misinterpretation of CBC data. Current Interpretive Data was last revised on 2017. Lymphocyte pct 33.4 % [facility] Comment: Interpretive Data Percent cell count reference ranges are not reported, since discordance with absolute values may lead to misinterpretation of CBC data. Current Interpretive Data was last revised on 2017. Monocyte pct 11.1 % [facility] Comment: Interpretive Data Percent cell count reference ranges are not reported, since discordance with absolute values may lead to misinterpretation of CBC data. Current Interpretive Data was last revised on 2017. Eosinophil pct 1.7 % [facility] Comment: Interpretive Data Percent cell count reference ranges are not reported, since discordance with absolute values may lead to misinterpretation of CBC data. Current Interpretive Data was last revised on 2017. Basophil pct 0.7 % [facility] Comment: Interpretive Data Percent cell count reference ranges are not reported, since discordance with absolute values may lead to misinterpretation of CBC data. Current Interpretive Data was last revised on 2017. Blood 10/05/2024 10:3 4 AM CDT 10/05/2024 10:38 AM CDT us Robin Hernandez MD LAB BLOOD ORDERABLES Final Resul t [place] [address] [facility] Department [place] [address] * (ABNORMAL) CBC with auto differential (10/05/2024 10:34 AM CDT) WBC 6.04 3.80 - 9.90 K/cumm Hgb 9.8(L) 11.9 - 15.5 g/dL [facility] Hct 33.4(L) 35.6 - 45.5 % [facility] Plt 302 150 - 400 K/cumm [facility] MPV 8.7(L) 9.1 - 12.3 fL [facility] RBC 4.10 3.90 - 5.20 M/cumm [facility] MCV 81.5 81.3 - 96.4 fL [facility] MCH 23.9(L) 27.1 - 33.3 pg [facility] MCHC 29.3(L) 32.3 - 35.7 g/dL [facility] RDW CV 20.2(H) 11.1 - 14.9 % [facility] RDW SD 59.5(H) 35.7 - 48.1 fL [facility] NRBC abs 0.00 0.00 - 0.01 K/cumm [facility] Blood 10/05/2024 10:3 4 AM CDT 10/05/2024 10:38 AM CDT Robin Hernandez MD LAB BLOOD ORDERABLES Final Resul t Performing Organization Address [facility] de Phone Number [address] [place] [address] * ABO/Rh (10/05/2024 10:34 AM CDT) Pathologist [facility] ABO/Rh O Positive Blood 10/05/2024 10:3 4 AM CDT 10/05/2024 10:38 AM CDT Narrative DOLLY - 10/05/2024 11:16 AM CDT Is this test being ordered in advance for a procedure?->Yes Expected date of procedure:->10/19/24 Has the patient been transfused in the past 3 months?->No Has the patient been in the past 3 months?->No Result [facility] Robin Hernandez MD LAB BLOOD BANK TEST ORDERABLES F inal Result Performing Organization Address [facility] Phone Number [address] [address] * aPTT (10/05/2024 10:34 AM CDT) Pathologist [facility] aPTT 29 22 - 37 sec Comment: Interpretive data aPTT test has not been evaluated for monitoring heparin therapy. The anti-Xa is the preferred test. Current interpretive data was last revised on 2019. Blood 10/05/2024 10:3 4 AM CDT 10/05/2024 10:38 AM CDT Result [facility] Robin Hernandez MD LAB BLOOD ORDERABLES Final Resul t Performing Organization Address [facility] de Phone Number [address] [place] [address] * Protime-INR (10/05/2024 10:34 AM CDT) Pathologist [facility] PT 13.6 12.0 - 14.6 sec INR 1.0 0.9 - 1.2 [facility] Comment: Ref Range High Interpretive data Oral anticoagulant therapeutic ranges: Venous thromboembolism prophylaxis or treatment: 2.0-3.0 CARDIOLOGY Standard range: 2.0-3.0 High-intensity range: 2.5-3.5 Refer to indication-specific guidelines for appropriate target ranges for prosthetic heart valve replacement. Current interpretive data was last revised on 2019. Blood 10/05/2024 10:3 4 AM CDT 10/05/2024 10:38 AM CDT Robin Hernandez MD LAB BLOOD ORDERABLES Final Resul t Performing Organization Address [facility] Co de Phone Number [address] [place] [address] * Antibody screen (10/05/2024 10:34 AM CDT) [facility] Huan, indirect, Gel Interpretation Negative ABSC Blood 10/05/2024 10:3 4 AM CDT 10/05/2024 10:38 AM CDT Narrative [facility] - 10/05/2024 11:17 AM CDT Is this test being ordered in advance for a procedure?->Yes Expected date of procedure:->10/19/24 Has the patient been transfused in the past 3 months?->No Has the patient been in the past 3 months?->No Robin Hernandez MD LAB BLOOD BANK TEST ORDERABLES F inal Result Performing Organization Address [facility] Co de Phone Number [address] [place], [place] [id number] * Comprehensive metabolic panel (10/05/2024 10:34 AM CDT) [facility] Sodium 138 135 - 145 mmol/L Potassium, pl 4.4 3.3 - 4.9 mmol/L [facility] Chloride 104 97 - 110 mmol/L [facility] CO2 24 22 - 32 mmol/L [facility] Anion gap 10 2 - 15 mmol/L [facility] BUN 9 6 - 25 mg/dL [facility] Creatinine 0.71 0.60 - 1.10 mg/dL [facility] Glucose 99 70 - 199 mg/dL [facility] Comment: Interpretive Data Fasting glucose >/= 126 mg/dl is diagnostic for diabetes. Fasting is defined as no caloric intake for at least 8 hours. Fasting glucose between 100 mg/dl to 125 mg/dl is diagnostic of prediabetes. In a patient with classic symptoms of hyperglycemia or hyperglycemic crisis, a random glucose >/= 200 mg/dl is diagnostic for diabetes. In the absence of unequivocal hyperglycemia, results should be confirmed by repeat testing. The classification and Diagnosis of Diabetes Diabetes Care 2021; 46: S19-S40. Current interpretive data was last revised 2022. Calcium 9.0 8.5 - 10.3 mg/dL [facility] Bilirubin, total 0.2 0.1 - 1.2 mg/dL [facility] Protein, pl 7.1 6.5 - 8.5 g/dL [facility] Albumin 3.7 3.5 - 5.0 g/dL [facility] Alk phos 93 40 - 130 Units/L [facility] ALT 9 7 - 45 Units/L [facility] AST 17 10 - 45 Units/L [facility] Blood 10/05/2024 10:3 4 AM CDT 10/05/2024 10:38 AM CDT us Robin Hernandez MD LAB BLOOD ORDERABLES Final Resul t Performing Organization Address City/State/[facility] Co de Phone Number [facility] [address] [facility] Department [place] [address] * POCT lipid panel (10/05/2024 7:55 AM CDT) Cholesterol, POC 115 <200 MG/DL HDL, POC 59 >=40 mg/dL Triglycerides, POC 90 <=149 mg/dL LDL Cholesterol POC 37 <=129 mg/dL Chol/HDL Ratio, POC 1.9 NONE Non-HDL Cholesterol, POC 55 NONE mg/dL Cholesterol Total, POC 115 30 - 199 mg/dL Capillary blood 10/05/2024 7 :55 AM CDT us Gee Hardy MD POINT OF CARE TEST ORDERA BLES Final Result * CTA Abdominal Aorta And Bilateral Iliofemoral Runoff (09/18/2024 12:36 PM CDT) Anatomical Region Laterality Modality Body Bilateral Computed Tomogra phy 09/18/2024 2:20 PM CDT Addenda Addendum by Juarez Veliz MD on 10/02/2024 8:03 AM CDT ADDENDUM: This addendum report supersedes the original report dated 09/18/2024 Note is made of a common by Dr. Hernandez with concern for aneurysmal dilatation adjacent to aorta-graft anastomosis. The anastomosis with the aorta is from a segment of aorta measuring 3.0 x 2.6 cm. Similar to 2020 exam. 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 At the anastomotic segment a contrast enhancing focus is identified measuring 2.5 by 2.1 cm within the [place] aorta. If this was previously surgically occluded during graft placement, this would indicate aneurysmal dilatation at the anastomotic site. Alternatively, please correlate with surgical report and findings to suggest a segment of persistently opacify/patent [place] aorta. END OF ADDENDUM REPORT THIS IS AN ELECTRONICALLY VERIFIED FINAL REPORT 10/02/2024 8:03 AM Addendum Electronically signed by Juarez WHITE T: Report ID: [id number] Reading Location: [id number] Narrative 09/18/2024 2:31 PM CDT EXAM DESCRIPTION: CTA ABDOMINAL AORTA AND BILATERAL ILIOFEMORAL RUNOFF REASON FOR STUDY: PVD PVD, Atherosclerosis of [place] artery of both lower extremities with intermittent [...] patent distally. 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 Internal iliac arteries: [...] Juarez Veliz M.D. RB T: Report ID: [id number] Reading Location: [id number] Procedure Note Juarez Veliz MD - 09/18/2024 EXAM DESCRIPTION: CTA ABDOMINAL AORTA AND BILATERAL ILIOFEMORAL RUNOFF REASON FOR STUDY: PVD PVD, Atherosclerosis of [place] artery of both lower extremities with intermittent [...] patent distally. PELVIC VASCULATURE: Common/external iliac arteries: [place] arteries are chronicallyoccluded. Internal iliac arteries: Patent [...] signed by Juarez WHITE T: Report ID: [id number] Reading Location: [place] [address] Robin Hernandez MD IMG CT PROCEDURES Edited Result - Final * US Arterial Duplex Lower Extremity Bilateral (08/27/2024 9:49 AM CDT) Anatomical Region Laterality Modality Vascular Bilateral Ultrasound 08/27/2024 8:59 AM CDT Narrative 08/27/2024 2:26 PM CDT [facility] [address] [place] [address] Lower Extremity Arterial Duplex Report Patient Name: ALFONSO YOU A : 1950 (74y 2m) Gender: F Study Date: 08/27/2024 08:59:54 AM Ht(Inch): Wt(Lb): BSA: Concrete Paving Machine Operator: IVY Location: [facility] Order Provider: ROBIN HERNANDEZ [...] exams. MEASUREMENTS: Right Value Left Value Rt SIGNALLING AND COMMUNICATIONS ENGINEER Dst PSV 67.00 cm/sec Lt SIGNALLING AND COMMUNICATIONS ENGINEER Dst PSV 298.00 cm/sec Rt Profunda Prx [...] MD - 08/27/2024 [facility] [address] [place] [address]. [place] [address] Lower Extremity Arterial Duplex Report Patient Name: ALFONSO YOU A : 1950 (74y 2m) Gender: F Study Date: 08/27/2024 08:59:54 AM Ht(Inch): Wt(Lb): BSA: Concrete Paving Machine Operator: IVY Location: [facility] Order Provider: ROBIN HERNANDEZ [...] exams. MEASUREMENTS: Right Value Left Value Rt SIGNALLING AND COMMUNICATIONS ENGINEER Dst PSV 67.00 cm/sec Lt SIGNALLING AND COMMUNICATIONS ENGINEER Dst PSV 298.00 cm/sec Rt Profunda Prx [...] 2:25 PM CDT [facility] [place] [address] Lower Extremity Arterial Doppler Report Patient Name: ALFONSO YOU A : 1950 Study Date: 08/27/2024 7:58:00 AM Gender: F Concrete Paving Machine Operator: Edith Gandhi RVT Location: [facility] Ref [...] mmHg Lt Brachial Pressure 174 mmHg Rt FARE REGISTER REPAIRER Pressure 182 mmHg Lt FARE REGISTER REPAIRER Pressure 187 mmHg Rt DPA Pressure 183 [...] 08/27/2024 1:32:07 PM CDT Procedure Note Robin eHrnandez MD - 08/27/2024 [facility] [address] [place] [address] Lower Extremity Arterial Doppler Report Patient Name: ALFONSO YOU A : 1950 Study Date: 08/27/2024 7:58:00 AM Gender: F Concrete Paving Machine Operator: Edith Gandhi Korin Location: [facility] Ref Provider: ROBIN HERNANDEZ Quality: [...] mmHg Lt Brachial Pressure 174 mmHg Rt FARE REGISTER REPAIRER Pressure 182 mmHg Lt FARE REGISTER REPAIRER Pressure 187 mmHg Rt DPA Pressure 183 [...] CDT [facility] [address] [place] [address] Abdominal Aortic Duplex Ultrasound Report Patient Name: ALFONSO YOU A : 1950 Study Date: 08/27/2024 8:10:07 AM Gender: F Concrete Paving Machine Operator: IVY Location: [facility] Ref Provider: ROBIN [...] Measurements Measurement Value Units Location/Type Aobifem Inflow [place] Artery PSV 69.00 cm/sec Anast Prx PSV 52.00 cm/sec BPG Prx PSV 43.00 cm/sec Rt Limb Prx PSV 106.00 cm/sec Rt Limb Mid PSV 58.00 cm/sec Rt Limb Dst PSV 52.00 cm/sec Anast Dst PSV 61.00 cm/sec Outflow [place] Artery PSV 67.00 cm/sec Lt Limb Prx PSV 121.00 cm/sec Lt Limb Mid PSV 82.00 cm/sec Lt Limb Dst PSV 64.00 cm/sec Anast Dst PSV 86.00 cm/sec Outflow [place] Artery PSV 298.00 cm/sec FINDINGS: Study Quality: [...] MD - 08/27/2024 [facility] [address] [place] [address]. [place] [address] Abdominal Aortic Duplex Ultrasound Report Patient Name: ALFONSO YOU A : 1950 Study Date: 08/27/2024 8:10:07 AM Gender: F Concrete Paving Machine Operator: Location: [facility] Provider: ROBIN HERNANDEZ Quality: Adequate Order Provider: [...] Measurements Measurement Value Units Location/Type Aobifem Inflow [place] Artery PSV 69.00 cm/sec Anast Prx PSV 52.00 cm/sec BPG Prx PSV 43.00 cm/sec Rt Limb Prx PSV 106.00 cm/sec Rt Limb Mid PSV 58.00 cm/sec Rt Limb Dst PSV 52.00 cm/sec Anast Dst PSV 61.00 cm/sec Outflow [place] Artery PSV 67.00 cm/sec Lt Limb Prx PSV 121.00 cm/sec Lt Limb Mid PSV 82.00 cm/sec Lt Limb Dst PSV 64.00 cm/sec Anast Dst PSV 86.00 cm/sec Outflow [place] Artery PSV 298.00 cm/sec FINDINGS: Study Quality: Adequate. Abdominal Aorta: Proximal aorta measures 2.87 x 3.02 cm. Atherosclerotic plaque noted.Patent aortobifemoral artery bypass graft with normal velocities. Elevated [id number] cm/s at outflow artery on the left. [...] 08/27/2024 1:33:30 PM CDT Robin Hernandez MD [facility] PROCEDURES Final Result * CT Lung Cancer [...] Paula Russo D.O. PS: PS Report ID: [id number] Reading Location: [place] [address] Procedure Note Paula Russo, DO - 03/07/2024 [...] Paula Russo D.O. PS: PS Report ID: [id number] Reading Location: [id number] us Ravindra Rowe MD IMG CT PROCEDURES [...] smoking and rheumatoid arthritis. Patient takes vitamin-D. Wire Sawyer/Model: [employer] Discovery SL (S/N [id number]) CLINICAL INFORMATION: Current height: 62 inches Maximum [...] Meena Cash M.D. TW: TW Report ID: [id number] Reading Location: [place] [address] Procedure Note Meena Cash MD - 03/05/2024 EXAM DESCRIPTION: DEXA AXIAL SKELETON BONE DENSITY 1 OR MORE SITES REASON FOR STUDY: 73 y/o year old F with given history of: Post menopausal status. Long-term and current use of steroids. History ofsmoking and rheumatoid arthritis. Patient takes vitamin-D. Wire Sawyer/Model: [employer] SL (S/N 84137) CLINICAL INFORMATION: Current height: 62 inches Maximum [...] Meena Cash M.D. TW: MALCOM Report ID: [id number] Reading Location: [place] [address] Ravindra Rowe MD IM DXA PROCEDURES Final Re sult * SCREENING [...] mass, calcification, or distortion in either breast. us Ravindra Rowe MD IMG MAMMO PROCEDURES Final Result * Hepatitis C antibody (07/02/2023 2:41 PM PANTOGRAPH MACHINE SET UP OPERATOR) Hep C Ab NON-REACTI VE NON-REACT BIANCA [facility] Comment: HCV antibody was non-reactive. There is no laboratory evidence of HCV infection. In most cases, no further action is required. However, if recent HCV exposure is suspected, a test for HCV RNA (test code 25870) is suggested. For additional information please refer to http://education.[employer]/faq/JWC95f9 (This link is being provided for informational/ educational purposes only.) 07/02/2023 2:41 PM PANTOGRAPH MACHINE SET UP OPERATOR 07/02/2023 2:43 PM PANTOGRAPH MACHINE SET UP OPERATOR Narrative [facility] - 07/04/2023 12:03 AM PANTOGRAPH MACHINE SET UP OPERATOR FASTING:NO FASTING: NO us Ravindra Rowe MD LAB MICROBIOLOGY - GENERAL ORDERABLES Final Result [facility] [address] [address] [facility] [place] [address] * COLONOSCOPY (10/12/2022 10:12 AM CDT) Anatomical Region Laterality Modality Other Narrative Procedure Note Henrik Cassidy MD - 10/12/2022 10:12 AM CDT [facility] Patient Name: Alfonso You Procedure Date: 10/12/2022 10:12 AM Date of : 1950 Admit Type: Outpatient Age: 72 Gender: Female Attending MD: Henrik Cassidy M.D. Room: [facility] ENDOSCOPY ROOM 2 Note Status: Finalized [...] passed under direct vision.The Pediatric Colonoscope PCF-H190L [id number] was introduced through the anus and advanced [...] malignant neoplasm of colon CPT copyright 2020 [employer]. All rights reserved. The codes documented in this report are preliminary and upon city jailer reviewmay be revised to meet current compliance requirements. Recognized by the [employer] for promoting quality in endoscopy Henrik Cassidy MD ENDOSCOPY PROCEDURES Final Re sult from Last 3 Months or Most Recently Relevant to Health Maintenance Insurance A[employer] MEDICARE GOLD AETNA MEDICARE GOLD Advance Directives For more information, please contact: [phone] Documents on File Type Date Recorded Patient Local Coordinator Expl anation ADVANCE DIRECTIVE 10/03/2023 2:29 PM Power of Tactical Deception Plans Officer-Medical ADVANCE DIRECTIVE 10/03/2023 1:53 PM DNR * [...] 9:59 AM 10/12/2022 9:59 AM Care Teams Computer Systems Administrator Relationship Specialty Start Date End Date Ravindra Rowe MD PCP - General Family Medicine 11/14/16 [place] [address] [place] [address] Surgeon General Surgery 09/30/17 Gee Hardy MD [address] [facility] [address] [place] [id number] Consulting Physician Cardiology 10/05/24
--- OUTSIDE RECORDS SUMMARY | 2024-10-07 11:30 | XMS_ITS | Referral Summary ---
Author Organization [facility] Address [address] [place] [address] Care Team Providers Care Valet Manager Name Role Phone Ravindra Rowe MD Primary Care Provider Darrion Griffith MD Unavailable eGe Hardy MD Unavailable Encounters Date Type Department Care Team Description 10/07/2024 Nurse Triage [facility] Primary Care at [address] [address] Ravindra Rowe MD 10/05/2024 12:30 PM CDT Pre-Admission Testing [facility] PreAdmission Testing [address] [place] [address] Pseudoaneurysm; Other disorder of circulatory system 10/05/2024 8:00 AM CDT Office Visit [facility] Cardiology at [address] [place] [phone] Gee Hardy MD Preop cardiovascular exam (Primary Dx); Tobacco use; 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; Essential hypertension; Hyperlipidemia LDL goal <70 10/01/2024 Documentation [facility] Vascular and Vein Surgery [address] [facility] [address] [place] [address] Janett More MA 09/23/2024 10:00 AM CDT Office Visit [facility] Vascular at [address] [place] [address] Robin Luu MD S/P aortobifemoral bypass surgery (Primary Dx); Pseudoaneurysm; Hyperlipidemia LDL goal <70 09/18/2024 12:14 PM CDT - 09/18/2024 11:59 PM CDT Hospital Encounter [facility] [address] [place] [address] Atherosclerosis of georgetown artery of both lower extremities with intermittent claudication Discharge Disposition: Discharge to home or self care 09/03/2024 Telephone [facility] Vascular and Vein Surgery at [address] [place] [address] La Nena Rudd 09/02/2024 Orders Only [facility] Vascular at [address] [place] [address] Robin Luu MD Atherosclerosis of georgetown artery of both lower extremities with intermittent claudication (Primary Dx) 09/02/2024 10:00 AM CDT Office Visit [facility] Vascular at [address] [place] [address] Robin Luu MD S/P aortobifemoral bypass surgery (Primary Dx); Hyperlipidemia LDL goal <70; Essential hypertension 08/28/2024 Telephone [facility] Vascular and Vein Surgery [address] [facility] [address] [place] [address] Janett More MA 08/27/[address] [facility] Movement Disorders [address] [facility] 7th [place] [address] Clara Ramirez NP 08/27/2024 9:00 AM CDT Ancillary Procedure [facility] Vascular and Vein Surgery at [address] [place] [address] S/P aortobifemoral bypass surgery; Other specified symptoms and signs involving the circulatory and respiratory systems 08/27/2024 9:00 AM CDT Ancillary Procedure [facility] Vascular and Vein Surgery at [address] [place] [address] S/P aortobifemoral bypass surgery; Other specified symptoms and signs involving the circulatory and respiratory systems 08/27/2024 8:00 AM CDT Ancillary Procedure [facility] Vascular and Vein Surgery at [address] [place] [address] S/P aortobifemoral bypass surgery 08/20/2024 Orders Only [facility] Primary Care at [address] [address] Ravindra Rowe MD Mixed anxiety and depressive disorder (Primary Dx) 08/12/2024 12:[address] PM CDT Clinical Support [facility] Movement Disorders [address] [place] [phone] Tremor 08/12/2024 10:30 AM CDT Office Visit [facility] Movement Disorders [address] [place] [phone] Clara Ramirez NP RLS (restless legs syndrome) (Primary Dx); Tremor; Other iron deficiency anemia; Iron deficiency anemia, unspecified iron deficiency anemia type; Cognitive impairment; Imbalance; Dysphagia, unspecified type 08/11/2024 Orders Only [facility] Vascular at [address] [place] [phone] Robin Luu MD S/P aortobifemoral bypass surgery (Primary Dx) 08/11/2024 Telephone [facility] Vascular and Vein Surgery [address] [facility] [address] [place] [phone] Janett More MA 08/11/2024 Orders Only [facility] Vascular and Vein Surgery [address] [facility] [address] [place] [address] Robin Luu MD S/P aortobifemoral bypass surgery (Primary Dx); Other specified symptoms and signs involving the circulatory and respiratory systems 08/07/2024 Telephone [facility] Primary Care at [address] [address] cancelled needs prior auth 08/07/2024 Telephone [facility] Primary Care at [address] [phone] Ravindra Rowe MD Medical Question/Miscellaneou s 08/07/2024 10:15 AM CDT Office Visit [facility] Primary Care at [address] [phone] Ravindra Rowe MD Panlobular emphysema (HCC) (Primary Dx); Hyperlipidemia LDL goal <70; Cerebrovascular disease; Essential hypertension; Mixed anxiety and depressive disorder; Rheumatoid arthritis involving multiple sites with positive rheumatoid factor (HCC); Left hemiparesis (HCC); Other psychoactive substance use, unspecified with withdrawal, unspecified (HCC); Myoclonic jerking; Resting tremor; Femoral artery aneurysm, right 07/23/2024 5:49 PM WELL SERVICES OPERATOR - 07/23/2024 11:59 PM WELL SERVICES OPERATOR Hospital Encounter [facility] Emergency, Room R Discharge Disposition: [...] mouth daily 90 tablet 3 04/07/20 24 Active ferrous sulfate 325 mg (65 mg [...] by mouth daily 90 capsule 3 04/07/20 Active tiZANidine (ZANAFLEX) 4 mg tabletIndication s:Muscle [...] ischemia, ischemia to the lower extremities, pelvis, NM stroke and . She wished proceed. We [...] evaluation. Assessment & Plan (04/23/2024 2:58 PM WELL SERVICES OPERATOR): Impression: Patient has a history of [...] previously exhibited some possible slight ataxia on gzlfwy-ndzf-luwxxt with intention tremor and overshoot as well [...] evaluation Assessment & Plan (04/27/2024 2:14 PM WELL SERVICES OPERATOR): Ms. You is a 73 y.o. [...] does appear to have some ataxia on otagke-gzra-sqdexx with intention tremor and overshoot as well [...] 07/2024 Assessment & Plan (03/30/2024 10:11 AM [facility]): Ms. You is a 73 y.o. female [...] (02/24/2020): Added automatically from request for surgery [id number] Encounter for Medicare annual wellness exam 01/18 Assessment & Plan (04/30/2023 1:53 PM WELL SERVICES OPERATOR): A(n) yearly Medicare Annual Wellness Visit [...] months Assessment & Plan (04/29/2022 12:09 PM WELL SERVICES OPERATOR): A(n) yearly Medicare Annual Wellness Visit [...] (01/18/2020): Added automatically from request for surgery [id number] Bilateral carotid artery stenosis 04/01/2019 Assessment & Plan (04/23/2024 2:50 PM WELL SERVICES OPERATOR): Impression: Patient is status post right [...] aspirin History of pancreatitis 11/07/2018 Atherosclerosis of georgetown co ronary artery of georgetown heart without angina pectoris 10/06/2018 Overview (10/06/2018): Added automatically from request for surgery [id number] Dehydration 09/29/2018 Hypotension due to hypovolemia 09/29/2018 Abnormal mammogram of right breast 08/01/2018 Coronary artery disease of n ative artery of georgetown heart with stable angina pectoris 07/28/2018 Assessment & Plan (01/08/2024 8:31 PM CDT): Patient had a nuclear medicine stress test 09/2023 with hyperdynamic global left ventricular systolic function of 80%, and myocardial perfusion imaging that was normal, negative test. Patient also had a mobile sheet sorter that identified a 1% burden of PVCs and had 2 events ventricular tachycardia. - continue with aspirin and statin Assessment & Plan (02/05/2020 3:18 PM CDT): Continues to follow up with claims account manager. Occasional chest pain continues, she is scheduled [...] se Assessment & Plan (04/04/2020 3:04 PM WELL SERVICES OPERATOR): Will stop liz Continuing Paxil as current Discussed the need [...] clonazepam for anxiety control. Fibromyalgia 11/02/2014 Other skilled nursing (current) drug therapy 5 Cervicalgia 02/11/2014 Essential hypertension 10/27/2013 Overview (06/03/2017): Hypertension Assessment & Plan (09/04/2024 10:51 AM CDT): Stable continue lisinopril Assessment & Plan (04/23/2024 2:58 PM WELL SERVICES OPERATOR): Impression: Chronic and stable. Plan: Continue [...] recollection, but was significant in the ER. Food Safety Field Specialist has reduced that, and recommend increase in lisinopril if needed. Renal panel pending Hyperlipidemia LDL goal <70 10/27/2013 Overview (08/25/2016): HLD - Hyperlipidaemia Assessment & Plan (09/28/2024 12:08 PM CDT): Stable continue Lipitor Assessment & Plan (09/04/2024 10:51 AM CDT): Stable continue Lipitor Assessment & Plan (04/23/2024 2:59 PM WELL SERVICES OPERATOR): Impression: Chronic stable. Plan: Continue Lipitor [...] 04/29/2022 Assessment & Plan (05/26/2018 4:53 PM WELL SERVICES OPERATOR): Acute on chronic back pain Hx [...] materials from doctor or pharmacy Sometimes 04/19/2024 [facility] Utilities Answer Date Recorded In the past 12 months has e [employer], [employer], or water [employer] threatened to shut off services in your [...] How often do you attend chur or congregational services? More than 4 times per year 03/13/2024 Do you belong to any clubs o r organizations such as scientology groups, unions, fraternal or athletic groups, or [...] staff should administer the PHQ-9) 6 08/07/2024 [facility] Health - Occupational Stress Questionnaire Answer Date [...] place to sleep or slept in a fpc (including now)? No 10/06/2020 PHQ-9 Answer Date [...] any time in the past 12 m [facility], were you homeless or living in a fpc (including now)? No 03/13/2024 Personal Safety Answer [...] on file Legal Sex Female 10:47 AM WELL SERVICES OPERATOR Gender Identity Not on file Sexual [...] Description 10/19/2024 10:10 AM CDT Hospital Encounter [facility] OR [address] [place] [address] Robin Luu MD [facility] [address] [place] [address] Pseudoaneurysm 10/19/2024 10:10 AM CDT Anesthesia Event [facility] OR [address] [place] [address] Betsy Cherry NP [address] [place] [address] 10/19/2024 10:10 AM CDT - 10/19/2024 12:50 PM CDT Surgery [facility] [place] [address] [place] [address] Robin Luu MD [address] [facility] [address] [place] [phone] 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 Medical Devices Implanted Type Area Personalized Living Manager Device Identifier Shelf Expiration Date Model / Serial / Lot [email or web address] Kindra 180-222 Contour 6fr 24cm Large Inner Lumen Low Profile Bladder Matt Taper Latex Free - [id number] Implanted:Qty: 1 on 02/18/2020 by Migue Reid MD at [facility] Explanted:03/24 by Migue Reid MD (Quantity not on file) Stent Right: Ureter [place] [employer] Kindra 12/21/2022 180-222 / / [id number] Left Iliac Artery Angioplasty And Stent Left: Iliac Description:LEFT ILIAC ARTER Y ANGIOPLASTY AND STENT [place] [employer] Kindra [id number] Synergy 2.5mm 20mm 144cm Radiopaque 1 Access Port Inflation Lumen - [id number] Implanted:Qty: 1 on 10/08/2018 by Ronen Nunes MD at [facility] [email or web address] Kindra 07/15/2020 [id number] / / [id number] [place] [employer] Kindra [id number] Synergy 2.5mm 8mm 144cm Radiopaque 1 Access Port Inflation Lumen - [id number] Implanted:Qty: 1 on 10/08/2018 by Ronen Nunes MD at [facility] [email or web address] Kindra 11/25/2019 [id number] / / [id number] [employer] Patch Vascuguard 0.88cm [id number] - [id number] Implanted:Qty: 1 on 10/17/2023 by Robin Luu MD at [facility] Right: Common Carotid Artery [employer] [id number] 05/13/2025 [id number] / / [id number] Procedures Procedure Name Priority Date/Time Associated Diagnosis [...] 7:55 AM CDT 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 Hyperlipidemia LDL goal <70 CTA ABDOMINAL AORTA AND BILATERAL ILIOFEMORAL RUNOFF Schedule Routine, Read Routine (OP Routine) 09/18/2024 12:36 PM CDT Atherosclerosis of [place] artery of both lower extremities with intermittent [...] 03/05/2024 9:01 AM CDT Screening for osteoporosis long term care phlebotomist current use of systemic steroids SCREENING MAMMOGRAM BILATERAL W RICHA Schedule Routine, Read Routine (OP Routine) 03/05/2024 8:54 AM CDT Breast cancer screening by mammogram HEPATITIS C ANTIBODY Routine 07/02/2023 2:41 PM WELL SERVICES OPERATOR COLONOSCOPY 10/12/2022 10:12 AM CDT from [...] of Race in Diagnosing Kidney Disease, JASN 2020). The CKD-EPI equation should not be used for patients with unstable renal function and has not been validated in children and those over 70. Current interpretive data was last reviewed 2021. Blood 10/05/2024 10:3 4 AM CDT 10/05/2024 10:38 AM CDT us Robin Luu MD LAB BLOOD ORDERABLES Final Resul t AYETYV [address] [facility] Department [place] [address] * Differential, auto (10/05/2024 10:34 AM CDT) Neutrophil abs 3.18 1.50 - 6.50 K/cumm Imm gran abs 0.03 0.00 - 0.10 K/cumm [facility] Lymphocyte abs 2.02 0.80 - 3.30 K/cumm [facility] Monocyte abs 0.67 0.20 - 0.80 K/cumm [facility] Eosinophil abs 0.10 0.00 - 0.50 K/cumm [facility] Basophil abs 0.04 0.00 - 0.10 K/cumm [facility] Neutrophil pct 52.6 % [facility] Comment: Interpretive Data Percent cell count reference ranges are not reported, since discordance with absolute values may lead to misinterpretation of CBC data. Current Interpretive Data was last revised on 2017. Imm gran pct 0.5 % [facility] Comment: Interpretive Data Percent cell count reference ranges are not reported, since discordance with absolute values may lead to misinterpretation of CBC data. Current Interpretive Data was last revised on 2017. Lymphocyte pct 33.4 % [facility] Comment: Interpretive Data Percent cell count reference ranges are not reported, since discordance with absolute values may lead to misinterpretation of CBC data. Current Interpretive Data was last revised on 2017. Monocyte pct 11.1 % [facility] Comment: Interpretive Data Percent cell count reference ranges are not reported, since discordance with absolute values may lead to misinterpretation of CBC data. Current Interpretive Data was last revised on 2017. Eosinophil pct 1.7 % [facility] Comment: Interpretive Data Percent cell count reference ranges are not reported, since discordance with absolute values may lead to misinterpretation of CBC data. Current Interpretive Data was last revised on 2017. Basophil pct 0.7 % [facility] Comment: Interpretive Data Percent cell count reference ranges are not reported, since discordance with absolute values may lead to misinterpretation of CBC data. Current Interpretive Data was last revised on 2017. Blood 10/05/2024 10:3 4 AM CDT 10/05/2024 10:38 AM CDT us Robin North Hero MD LAB BLOOD ORDERABLES Final Resul t Performing Organization Address [facility] Co de Phone Number DOLLY [address] [address] * (ABNORMAL) CBC with auto differential (10/05/2024 10:34 AM CDT) [facility] WBC 6.04 3.80 - 9.90 K/cumm Hgb 9.8(L) 11.9 - 15.5 g/dL [facility] Hct 33.4(L) 35.6 - 45.5 % [facility] Plt 302 150 - 400 K/cumm [facility] MPV 8.7(L) 9.1 - 12.3 fL [facility] RBC 4.10 3.90 - 5.20 M/cumm [facility] MCV 81.5 81.3 - 96.4 fL [facility] MCH 23.9(L) 27.1 - 33.3 pg [facility] MCHC 29.3(L) 32.3 - 35.7 g/dL [facility] RDW CV 20.2(H) 11.1 - 14.9 % [facility] RDW SD 59.5(H) 35.7 - 48.1 fL [facility] NRBC abs 0.00 0.00 - 0.01 K/cumm [facility] Blood 10/05/2024 10:3 4 AM CDT 10/05/2024 10:38 AM CDT Robin Luu MD LAB BLOOD ORDERABLES Final Resul t Performing Organization Address [facility] Co de Phone Number DOLLY [address] [place] [address] * ABO/Rh (10/05/2024 10:34 AM CDT) [facility] ABO/Rh O Positive Blood 10/05/2024 10:3 4 AM CDT 10/05/2024 10:38 AM CDT Narrative [facility] - 10/05/2024 11:16 AM CDT Is this test being ordered in advance for a procedure?->Yes Expected date of procedure:->10/19/24 Has the patient been transfused in the past 3 months?->No Has the patient been in the past 3 months?->No Result [facility] Robin Luu MD LAB BLOOD BANK TEST ORDERABLES F inal Result Performing Organization Address [facility] de Phone Number [address] [place] [address] * aPTT (10/05/2024 10:34 AM CDT) aPTT 29 22 - 37 sec Comment: Interpretive data aPTT test has not been evaluated for monitoring heparin therapy. The anti-Xa is the preferred test. Current interpretive data was last revised on 2019. Blood 10/05/2024 10:3 4 AM CDT 10/05/2024 10:38 AM CDT Robin Luu MD LAB BLOOD ORDERABLES Final Resul t Performing Organization Address [facility] de Phone Number [address] [place] [address] * Protime-INR (10/05/2024 10:34 AM CDT) PT 13.6 12.0 - 14.6 sec INR 1.0 0.9 - 1.2 DOLLY Comment: Ref Range High Interpretive data Oral anticoagulant therapeutic ranges: Venous thromboembolism prophylaxis or treatment: 2.0-3.0 CARDIOLOGY Standard range: 2.0-3.0 High-intensity range: 2.5-3.5 Refer to indication-specific guidelines for appropriate target ranges for prosthetic heart valve replacement. Current interpretive data was last revised on 2019. Blood 10/05/2024 10:3 4 AM CDT 10/05/2024 10:38 AM CDT Robin Luu MD LAB BLOOD ORDERABLES Final Resul t Performing Organization Address [facility] de Phone Number [address] [place] [address] * Antibody screen (10/05/2024 10:34 AM CDT) [facility] Huan, indirect, Gel Interpretation Negative ABSC Blood 10/05/2024 10:3 4 AM CDT 10/05/2024 10:38 AM CDT Narrative [facility] - 10/05/2024 11:17 AM CDT Is this test being ordered in advance for a procedure?->Yes Expected date of procedure:->10/19/24 Has the patient been transfused in the past 3 months?->No Has the patient been in the past 3 months?->No Robin Luu MD LAB BLOOD BANK TEST ORDERABLES F inal Result [address] [address] * Comprehensive metabolic panel (10/05/2024 10:34 AM CDT) [facility] Sodium 138 135 - 145 mmol/L Potassium, pl 4.4 3.3 - 4.9 mmol/L [facility] Chloride 104 97 - 110 mmol/L [facility] CO2 24 22 - 32 mmol/L [facility] Anion gap 10 2 - 15 mmol/L [facility] BUN 9 6 - 25 mg/dL [facility] Creatinine 0.71 0.60 - 1.10 mg/dL [facility] Glucose 99 70 - 199 mg/dL [facility] Comment: Interpretive Data Fasting glucose >/= 126 [...] classification and Diagnosis of Diabetes Diabetes Care 202; 46: S19-S40. Current interpretive data was last revised 2022. Calcium 9.0 8.5 - 10.3 mg/dL [facility] Bilirubin, total 0.2 0.1 - 1.2 mg/dL [facility] Protein, pl 7.1 6.5 - 8.5 g/dL [facility] Albumin 3.7 3.5 - 5.0 g/dL [facility] Alk phos 93 40 - 130 Units/L [facility] ALT 9 7 - 45 Units/L [facility] AST 17 10 - 45 Units/L [facility] Blood 10/05/2024 10:3 4 AM CDT 10/05/2024 10:38 AM CDT Robin Luu MD LAB BLOOD ORDERABLES Final Resul t DOLLY [address] [facility] Department [place] [address] * POCT lipid panel (10/05/2024 7:55 AM CDT) Cholesterol, POC 115 <200 MG/DL HDL, POC 59 >=40 mg/dL Triglycerides, POC 90 <=149 mg/dL LDL Cholesterol POC 37 <=129 mg/dL Chol/HDL Ratio, POC 1.9 NONE Non-HDL Cholesterol, POC 55 NONE mg/dL Cholesterol Total, POC 115 30 - 199 mg/dL Capillary blood 10/05/2024 7 :55 AM CDT Gee Hardy MD POINT OF CARE TEST [...] is made of a common by Dr. Luu with concern for aneurysmal dilatation adjacent to aorta-graft anastomosis. The anastomosis with the aorta is from a segment of aorta measuring 3.0 x 2.6 cm. Similar to 2020 exam. 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 At the anastomotic segment a contrast enhancing focus is identified measuring 2.5 by 2.1 cm within the ge[place] aorta. If this was previously surgically occluded during graft placement, this would indicate aneurysmal dilatation at the anastomotic site. Alternatively, please correlate with surgical report and findings to suggest a segment of persistently opacify/patent ge[place] aorta. END OF ADDENDUM REPORT THIS IS AN ELECTRONICALLY VERIFIED FINAL REPORT 10/02/2024 8:03 AM Addendum Electronically signed by Juarez WHITE T: Report ID: [id number] Reading Location: [id number] [facility] 09/18/2024 2:31 PM CDT EXAM DESCRIPTION: CTA ABDOMINAL AORTA AND BILATERAL ILIOFEMORAL RUNOFF REASON FOR STUDY: PVD PVD, Atherosclerosis of [place] artery of both lower extremities with intermittent [...] patent distally. 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 Internal iliac arteries: [...] signed by Juarez WHITE T: Report ID: [id number] Reading Location: [id number] Procedure Note Juarez Veliz MD - 09/18/2024 EXAM DESCRIPTION: CTA ABDOMINAL AORTA AND BILATERAL ILIOFEMORAL RUNOFF REASON FOR STUDY: PVD PVD, Atherosclerosis of [place] artery of both lower extremities with intermittent [...] patent distally. PELVIC VASCULATURE: Common/external iliac arteries: [place] arteries are chronicallyoccluded. Internal iliac arteries: Patent [...] Juarez Veliz M.D. RB T: Report ID: [id number] Reading Location: [place] [address] Robin Luu MD IMG CT PROCEDURES Edited Result - Final * US Arterial Duplex Lower Extremity Bilateral (08/27/2024 9:49 AM CDT) Anatomical Region Laterality Modality Vascular Bilateral Ultrasound 08/27/2024 8:59 AM CDT Narrative 08/27/2024 2:26 PM CDT Vascular & Vein Surgery [address] [place] [address] Lower Extremity Arterial Duplex Report Patient Name: ALFONSO YOU A : 1950 (74y 2m) Gender: F Study Date: 08/27/2024 08:59:54 AM Ht(Inch): Wt(Lb): BSA: Lang Interpreter: Location: [facility] Order Provider: ROBIN LUU Quality: Adequate Ref Provider: ROBIN LUU PROCEDURES: Arterial Report: A non-invasive vascular imaging study of the bilateral lower extremity arteries was performed using B-mode ultrasound, color flow, and spectral Doppler. INDICATIONS: S/P aobifem BPG 02/22/16; S/P stent Lt iliac 04/29/15. HISTORY: HTN. HLD. CVA. COPD. CAD S/P stents. Current smoker. COMPARISONS: No previous exams. MEASUREMENTS: Right Value Left Value Rt KENNEL MANAGER DOG TRACK Dst PSV 67.00 cm/sec Lt KENNEL MANAGER DOG TRACK Dst PSV 298.00 cm/sec Rt Profunda Prx [...] is provided above. Electronically Signed By: Robin Luu MD 08/27/2024 1:34:11 PM CDT Procedure Note Robin Luu MD - 08/27/2024 Vascular & Vein Surgery [address] [place] [address] Lower Extremity Arterial Duplex Report Patient Name: ALFONSO YOU A : 1950 (74y 2m) Gender: F Study Date: 08/27/2024 08:59:54 AM Ht(Inch): Wt(Lb): BSA: Lang Interpreter: IVY Location: [facility] Order Provider: ROBIN LUU Quality: Adequate Ref Provider: ROBIN LUU PROCEDURES: Arterial Report: A non-invasive vascular imaging study of the bilaterallower extremity arteries was performed using B-mode ultrasound, color flow, and spectralDoppler. INDICATIONS: S/P aobifem BPG 02/22/16; S/P stent Lt iliac 04/29/15. HISTORY: HTN. HLD. CVA. COPD. CAD S/P stents. Current smoker. COMPARISONS: No previous exams. MEASUREMENTS: Right Value Left Value Rt KENNEL MANAGER DOG TRACK Dst PSV 67.00 cm/sec Lt KENNEL MANAGER DOG TRACK Dst PSV 298.00 cm/sec Rt Profunda Prx [...] is provided above. Electronically Signed By: Robin Luu MD 08/27/2024 1:34:11 PM CDT us Robin Luu MD IMG US PROCEDURES Final Result * US JAMIE (08/27/2024 9:49 AM CDT) Anatomical Region Laterality Modality Vascular N/A Ultrasound 08/27/2024 7:58 AM CDT Narrative 08/27/2024 2:25 PM CDT [facility] [address] [facility] [place] [address] Lower Extremity Arterial Doppler Report Patient Name: ALFONSO YOU A : 1950 Study Date: 08/27/2024 7:58:00 AM Gender: F Lang Interpreter: Edith Gandhi RVT Location: [facility] Ref Provider: ROBIN LUU Quality: Adequate Order Provider: ROBIN LUU PROCEDURES: Arterial Report: Ankle - Brachial Index Doppler exam. INDICATIONS: S/P aobifem BPG 02/22/16; S/P stent Lt iliac 04/29/15. HISTORY: HTN. HLD. CVA. COPD. CAD S/P stents. Current smoker. COMPARISONS: No change compared to prior study. The previous exam was completed on 09/19/23. MEASUREMENTS: Right Value Left Value Rt Brachial Pressure 177 mmHg Lt Brachial Pressure 174 mmHg Rt USER SUPPORT SPECIALIST Pressure 182 mmHg Lt USER SUPPORT SPECIALIST Pressure 187 mmHg Rt DPA Pressure 183 [...] is provided above. Electronically Signed By: Robin Luu MD 08/27/2024 1:32:07 PM CDT Procedure Note Robin Luu MD - 08/27/2024 [facility] [address] [facility] [place] [address] Lower Extremity Arterial Doppler Report Patient Name: ALFONSO YOU A : 1950 Study Date: 08/27/2024 7:58:00 AM Gender: F Lang Interpreter: Edith Gandhi RVT Location: [facility] Ref Provider: ROBIN LUU Quality: Adequate Order Provider: ROBIN LUU PROCEDURES: Arterial Report: Ankle - Brachial Index Doppler exam. INDICATIONS: S/P aobifem BPG 02/22/16; S/P stent Lt iliac 04/29/15. HISTORY: HTN. HLD. CVA. COPD. CAD S/P stents. Current smoker. COMPARISONS: No change compared to prior study. The previous exam was completed on 09/19/23. MEASUREMENTS: Right Value Left Value Rt Brachial Pressure 177 mmHg Lt Brachial Pressure 174 mmHg Rt USER SUPPORT SPECIALIST Pressure 182 mmHg Lt USER SUPPORT SPECIALIST Pressure 187 mmHg Rt DPA Pressure 183 [...] is provided above. Electronically Signed By: Robin Luu MD 08/27/2024 1:32:07 PM CDT us Robin Luu MD IMG US PROCEDURES Final Result * US Duplex Scan Aorta, IVC Iliac Complete (08/27/2024 9:49 AM CDT) Anatomical Region Laterality Modality Vascular N/A Ultrasound 08/27/2024 8:10 AM CDT Narrative 08/27/2024 2:26 PM CDT [facility] Ve[facility] [address] [place] [address] Abdominal Aortic Duplex Ultrasound Report Patient Name: ALFONSO YOU A : 1950 Study Date: 08/27/2024 8:10:07 AM Gender: F Lang Interpreter: Location: [facility] Ref Provider: ROBIN LUU Quality: Adequate Order Provider: ROBIN LUU PROCEDURES: Arterial Report: Abdominal Aorta Stent Graft [...] Measurements Measurement Value Units Location/Type Aobifem Inflow Iliamna Artery PSV 69.00 cm/sec Anast Prx PSV 52.00 cm/sec BPG Prx PSV 43.00 cm/sec Rt Limb Prx PSV 106.00 cm/sec Rt Limb Mid PSV 58.00 cm/sec Rt Limb Dst PSV 52.00 cm/sec Anast Dst PSV 61.00 cm/sec Outflow [place] Artery PSV 67.00 cm/sec Lt Limb Prx PSV 121.00 cm/sec Lt Limb Mid PSV 82.00 cm/sec Lt Limb Dst PSV 64.00 cm/sec Anast Dst PSV 86.00 cm/sec Outflow [place]li[place] Artery PSV 298.00 cm/sec FINDINGS: Study Quality: [...] cm. Provider Notification: Results called to Dr. Luu at 09:19. CONCLUSIONS: 1. Patent aortobifemoral bypass. Pseudoaneurysm noted on the distal right limb measuring 1.1 cm. ATTESTATION: I have reviewed and interpreted the pertinent images and measurements of this study. I attest to the conclusions in the final report that is provided above. Electronically Signed By: Robin Luu MD 08/27/2024 1:33:30 PM CDT Procedure Note Robin Luu MD - 08/27/2024 [facility] [address] [facility] [place] [address] Abdominal Aortic Duplex Ultrasound Report Patient Name: ALFONSO YOU A : 1950 Study Date: 08/27/2024 8:10:07 AM Gender: F Lang Interpreter: IVY Location: [facility] Ref Provider: ROBIN LUU Quality: Adequate Order Provider: ROBIN LUU PROCEDURES: Arterial Report: Abdominal Aorta Stent Graft [...] Measurements Measurement Value Units Location/Type Aobifem Inflow [place] Artery PSV 69.00 cm/sec Anast Prx PSV 52.00 cm/sec BPG Prx PSV 43.00 cm/sec Rt Limb Prx PSV 106.00 cm/sec Rt Limb Mid PSV 58.00 cm/sec Rt Limb Dst PSV 52.00 cm/sec Anast Dst PSV 61.00 cm/sec Outflow [place] Artery PSV 67.00 cm/sec Lt Limb Prx PSV 121.00 cm/sec Lt Limb Mid PSV 82.00 cm/sec Lt Limb Dst PSV 64.00 cm/sec Anast Dst PSV 86.00 cm/sec Outflow [place]li[place] Artery PSV 298.00 cm/sec FINDINGS: Study Quality: Adequate. Abdominal Aorta: Proximal aorta measures 2.87 x 3.02 cm. Atherosclerotic plaque noted.Patent aortobifemoral artery bypass graft with normal velocities. Elevated GBT416 cm/s at outflow artery on the left. Possible pseudoaneurysm noted at distal rightlimb measuring 1.08 x 0.75 x 0.89 cm, neck measuring 0.55 x 0.36 cm. Provider Notification: Results called to Dr. Luu at 09:19. CONCLUSIONS: 1. Patent aortobifemoral bypass. Pseudoaneurysm noted on the distal rightlimb measuring 1.1 cm. ATTESTATION: I have reviewed and interpreted the pertinent images and measurements ofthis study. I attest to the conclusions in the final report that is provided above. Electronically Signed By: Robin Luu MD 08/27/2024 1:33:30 PM CDT Robin Luu MD [facility]ED[place] Final Result * CT Lung [...] Paula Russo D.O. PS: PS Report ID: [id number] Reading Location: [id number] Procedure Note Rafaela Paula Emilio DO - 03/07/2024 EXAM DESCRIPTION: CT LUNG [...] Paula Russo D.O. PS: PS Report ID: [id number] Reading Location: [place] [address] [address]indra Rowe MD IMG CT PROCEDURES Final [...] smoking and rheumatoid arthritis. Patient takes vitamin-D. Personalized Living Manager/Model: [employer] (S/N [id number]) CLINICAL INFORMATION: Current height: 62 inches Maximum [...] Meena Cash M.D. TW: TW Report ID: [id number] Reading Location: [id number] Procedure Note Meena Cash MD - 03/05/2024 EXAM DESCRIPTION: DEXA AXIAL SKELETON BONE DENSITY 1 OR MORE SITES REASON FOR STUDY: 73 y/o year old F with given history of: Post menopausal status. Long-term and current use of steroids. History ofsmoking and rheumatoid arthritis. Patient takes vitamin-D. Personalized Living Manager/Model: [employer] (S/N [id number]) CLINICAL INFORMATION: Current height: 62 inches Maximum [...] Meena Cash M.D. TW: MALCOM Report ID: [id number] Reading Location: [id number] Ravindra Rowe MD IM DXA PROCEDURES Final [...] distortion in either breast. Ravindra Rowe MD G MAMMO PROCEDURES Final Result * Hepatitis C antibody (07/02/2023 2:41 PM WELL SERVICES OPERATOR) Hep C Ab NON-REACTI VE NON-REACT BIANCA [facility] Comment: HCV antibody was non-reactive. There is no laboratory evidence of HCV infection. In most cases, no further action is required. However, if recent HCV exposure is suspected, a test for HCV RNA (test code 97762) is suggested. For additional information please refer to http://education.Weblance.Virax/faq/ZLQ45s8 (This link is being provided for informational/ educational purposes only.) 07/02/2023 2:41 PM WELL SERVICES OPERATOR 07/02/2023 2:43 PM WELL SERVICES OPERATOR Narrative [facility] - 07/04/2023 12:03 AM WELL SERVICES OPERATOR FASTING:NO FASTING: NO Result [facility] Ravindra Rowe MD LAB MICROBIOLOGY - GENERAL ORDERABLES Final Result [facility] [address] [id number] * COLONOSCOPY (10/12/2022 10:12 AM CDT) Anatomical Region Laterality Modality Other Narrative Procedure Note Henrik Cassidy MD - 10/12/2022 10:12 AM CDT [facility] Patient Name: Alfonso You Procedure Date: 10/12/2022 10:12 AM Date of : 1950 Admit Type: Outpatient Age: 72 Gender: Female Attending MD: Henrik Cassidy M.D. Room: [facility] ENDOSCOPY ROOM 2 Note Status: Finalized [...] passed under direct vision.The Pediatric Colonoscope PCF-H190L [id number] was introduced through the anus and advanced [...] malignant neoplasm of colon CPT copyright 2020 [employer]. All rights reserved. The codes documented in this report are preliminary and upon county agent reviewmay be revised to meet current compliance requirements. Recognized by the [employer] for promoting quality in endoscopy Henrik Cassidy MD ENDOSCOPY PROCEDURES Final Re sult from Last 3 Months or Most Recently Relevant to Health Maintenance Insurance AETNA MEDICARE GOLD AETNA MEDICARE GOLD Advance Directives For more information, please contact: [phone] Documents on File Type Date Recorded Patient Supervisor Laboratory Expl anation ADVANCE DIRECTIVE 10/03/2023 2:29 PM Power of Global Supply Chain Director-Medical ADVANCE DIRECTIVE 10/03/2023 1:53 PM DNR * [...] 9:59 AM 10/12/2022 9:59 AM Care Teams Valet Manager Relationship Specialty Start Date End Date Ravindra Rowe MD PCP - General Family Medicine 11/14/16 [place] [address] [place] [address] Surgeon General Surgery 09/30/17 Gee Hardy MD [address] [id number] Consulting Physician Cardiology 10/05/24
--- OUTSIDE RECORDS SUMMARY | 2024-10-07 11:30 | XMS_ITS | Clinical Summary ---
Author Organization [facility] Address [address] [place] [address] Care Team Providers Care Sales Administration Specialist Name Role Phone Phil Guerra MD Unavailable [phone] Edmund Buenrostro MD Unavailable [phone] Jeremie Tyson MD Unavailable [phone] Janine Watkins RN Unavailable [phone] Ravindra Rowe MD Primary Care Provider + [phone] Source Comments [facility],non-owned Affiliates and Associated Physician Practices is amultiple site organization consisting of ambulatory clinics and hospital sitesin [place], [place], [place] and [place]. This disclosure is being madepursuant to the Care Everywhere program and may not contain all information available regarding this patient. Last updated 18.[facility] Allergies Active Allergy Reactions Criticality Noted Date [...] mouth once daily 4 Active nystatin (Mycostatin) 007825 UNIT/ML suspension TAKE 5 ML (500,000 UNITS [...] Comments Blood Pressure 140/70 03/25/2024 11:49 AM MAINTENANCE ENGINEER OIL FIELD Pulse 74 03/25/2024 11:49 AM MAINTENANCE ENGINEER OIL FIELD Temperature 36.7 C (98 F) 12/15/2019 1:09 PM CDT Respiratory Rate 24 12/15/2019 2:31 PM CDT Oxygen Saturation 97% 03/25/2024 11:49 AM MAINTENANCE ENGINEER OIL FIELD Inhaled Oxygen Concentration 21% 04/30/2015 5 :26 PM MAINTENANCE ENGINEER OIL FIELD Weight 47.2 kg (104 lb) 03/25/2024 11:49 AM MAINTENANCE ENGINEER OIL FIELD Height 157.5 cm (5' 2 ) 03/25/2024 11:49 AM MAINTENANCE ENGINEER OIL FIELD Body Mass Index 19.02 03/25/2024 11:49 AM MAINTENANCE ENGINEER OIL FIELD Plan of Treatment Health Maintenance Due Date [...] this topic Medical Devices Implanted Type Area Ct Scan Special Procedures Technologist Device Identifier Shelf Expiration Date Model / Serial / Lot Stent Hep Cov .018in 6.0mm X 10mm - [id number] Implanted:Qty: 1 on 04/29/2015 by Darrion Griffith MD at [facility] Left: [employer] [id number] / [id number] / Grft Vasc Dbl Urbano Bifur 16-8mm 40cm - [id number] Implanted:Qty: 1 on 02/22/2016 by Darrion Griffith MD at [facility] Aorta Maquet 02/17/2020 [id number] / [id number] / Procedures Procedure Name Priority Date/Time Associated Diagnosis Comments HEPATITIS SCREEN ACUTE Routine 04/01/2024 10:53 AM MAINTENANCE ENGINEER OIL FIELD Rheumatoid arthritis of multiple sites without rheumatoid factor Polyarthralgia Lassitude Vitamin D deficiency High risk medication use Immunosuppressed status Osteopenia of multiple sites from Last 3 Months or Most Recently Relevant to Health Maintenance Results * HEPATITIS SCREEN ACUTE (04/01/2024 10:53 AM MAINTENANCE ENGINEER OIL FIELD) Hepatitis A Virus Antibody IgM NON-REACTI VE NON-REACT BIANCA [facility] Comment: For additional information, please refer to http://Homeschool Snowboarding/faq/ILT988 (This link is being provided for informational/ educational purposes only.) Hepatitis B Virus Surface Antigen NON-REACTI VE NON-REACT BIANCA [facility] Comment: For additional information, please refer to http://Homeschool Snowboarding/faq/EHJ880 (This link is being provided for informational/ educational purposes only.) Hepatitis B Core Virus Antibody IgM NON-REACTI VE NON-REACT BIANCA [facility] Comment: For additional information, please refer to http://Homeschool Snowboarding/faq/KKW275 (This link is being provided for informational/ educational purposes only.) Hepatitis C Antibody NON-REACTI VE NON-REACT BIANCA [facility] Comment: HCV antibody was non-reactive. There is no laboratory evidence of HCV infection. In most cases, no further action is required. However, if recent HCV exposure is suspected, a test for HCV RNA (test code 78580) is suggested. For additional information please refer to http://Homeschool Snowboarding/faq/JGC51e2 (This link is being provided for informational/ educational purposes only.) Test Performed at: [facility] [address] [place] [address] GELACIO HUANG MD Blood BLOOD SPECIMEN / Unknown 04/01/2024 10:53 AM MAINTENANCE ENGINEER OIL FIELD 04/01/2024 10:53 AM MAINTENANCE ENGINEER OIL FIELD Fiorella Oscar MD LAB - CHEMISTRY ORDERABLES Isabela kelly Result [facility] [address] [place] [address] from Last 3 Months or Most Recently [...] 6:46 PM 04/30/2015 9:08 PM Care Teams Sales Administration Specialist Relationship Specialty Start Date End Date Ravindra Rowe MD PCP - General Family Medicine 07/02/17 Phil Guerra MD Neurology 11/02/14 Edmund Buenrostro MD [address] [id number] Orthopedic Surgery 11/02/14 [place] [address] [address] Pulmonary Disease 04/18/15 Janine Watkins, ISHA Nursing Home Manager 05/04/15
--- OUTSIDE RECORDS SUMMARY | 2024-10-07 11:30 | XMS_ITS | Encounter Summary ---
Author Organization [facility] Address [address] [place] [address] Care Team Providers Care Mud Temperer Name Role Phone Ravindra Rowe MD Primary Care Provider [phone] Darrion Griffith MD Unavailable [phone] Ronen Nunes MD Unavailable [phone] Liza Major NP Unavailable [phone] Juarez Pulido MD Unavailable [phone] Shane Hays MD Unavailable [phone] Migue Reid MD Unavailable [phone] Carlos Amaya MD Unavailable Sophy Bravo CMA Unavailable [phone] Sujata Noonan MA Unavailable Cintia Carroll RN Unavailable Taho Abdullahi MA Unavailable Fiorella Oscar MD Unavailable [phone] Gee Hardy MD Unavailable Reason for Visit * Reason Onset Date Comments Scheduling Appointments 10/30/2021 Called p atient to cancel DEXA for 10/31/21 due to machine being down. Gave patient scheduling's phone number to reschedule. Encounter Details Date Type Department Care Team (Late st Contact Info) Description 10/30/2021 Telephone [facility] [address] [place] [address] vIon Arriola RT Scheduling Appointments (Called patient to [...] often do you attend chur ch or synagogue services? More than 4 times per year 02/06/2021 Do you belong to any clubs o r organizations such as episcopalian groups, unions, fraternal or athletic groups, or [...] staff should administer the PHQ-9) 0 02/06/2021 [facility] of Occupat ional Health - Occupational Stress [...] place to sleep or slept in a residential (including now)? No 10/06/2020 Education Answer Date Recorded What is the highest level of school you have completed or the highest degree you have received? 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 file Not on file documented as of this encounter Plan of Treatment Upcoming Encounters Date Type Department Care Team (Latest Contact Info) Description 10/19/2024 10:10 AM CDT Hospital Encounter [facility] [place] [address] [place] [address] Uday Luu MD [address] [facility] [address] [place] [address] Pseudoaneurysm 10/19/2024 10:10 AM CDT Anesthesia Event [facility] [place] [address] [place] [address] Betsy Cherry NP [address] [place] [address] 10/19/2024 10:10 AM CDT - 10/19/2024 12:50 PM CDT Surgery [facility] [place] [address] [place] [address] Uday Luu MD [address] [facility] [address] [place] [address] 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 documented as of this encounter Visit Diagnoses Not on filedocumented in this encounter Additional Health Concerns Infection Onset Date Last Indicated Resolved Time COVID: Suspected 02/15/2023 02/16/2023 02/16/2023 1:17 AM CDT COVID: Suspected 02/20/2023 02/20/2023 02/20/2023 8:33 PM CDT documented as of this encounter Care Teams Mud Temperer Relationship Specialty Start Date End Date Ravindra Rowe MD PCP - General Family Medicine 11/14/16 [place] [address] [address] [place] [address] Surgeon General Surgery 09/30/17 [place] [address] [place] [address] Consulting Physician Cardiology 06/24/18 10/04/24 Liza Major, LESLEY [address] [place] [address] Nurse Practitioner Nurse Practitioner 07/08/18 10/04/24 [place] [address] [address] [place] [address] Consulting Physician Cardiovascular Disease 07/28/18 Shane Hays MD [address] [place] [address] Consulting Physician Rheumatology 02/18/19 12/31/23 Migue Reid MD [address] [place] [address] Consulting Physician Urology 03/16/20 10/04/24 Carlos Amaya MD [address] [place] [address] Consulting Physician Nephrology 03/16/20 10/04/24 Sophy Bravo CMA [address] [address] [place] [address] ACO Care Triage Licensed Practical Nurse 02/20/23 02/20/23 Sujata Noonan MA [address] [address] [place] [address] ACO Care Triage Licensed Practical Nurse 10/21/23 10/23/23 Cintia Carroll, ISHA [address] [place] [address] [address] [place] [address] Foil Operator 01/14/24 02/13/24 Thao Abdullahi MA [address] [place] [address] [address] [place] [address] ACO Care Triage Licensed Practical Nurse 03/16/24 03/17/24 [place] [address] [id number] Referring Physician Film Reader 04/20/24 10/04/24 Gee Hardy MD [address] [facility] [address] [place] [address] [id number] Consulting Physician Cardiology 10/05/24 documented as of this encounter
--- OUTSIDE RECORDS SUMMARY | 2024-10-07 11:30 | XMS_ITS | Encounter Summary ---
Author Organization [facility] Healthcare Address [address] [place] [address] Care Team Providers Care Source Water Protection Specialist Name Role Phone Ravindra Rowe MD Primary Care Provider Darrion Griffith MD Unavailable [phone] Ronen Nunes MD Unavailable [phone] Liza Major NP Unavailable [phone] Juarez Pulido MD Unavailable [phone] Migue Reid MD Unavailable [phone] Carlos Amaya MD Unavailable [phone] Fiorella Oscar MD Unavailable [phone] Gee Hardy MD Unavailable [phone] Encounter Details Date Type Department Care Team (Late st Contact Info) Description 10/01/2024 Documentation [facility] Vascular and Vein Surgery [address] [facility] [address] [place] [address] Janett More MA Social History Tobacco Use Types Packs/Day Years Used Date Smoking Tobacco: Every Day Cigarettes 1.5 59.9 Started: [birth year]/21/1963 Smokeless Tobacco: Never Comments:Smoking History [...] materials from doctor or pharmacy Sometimes 04/19/2024 [facility] Utilities Answer Date Recorded In the past 12 months has e [employer], oil, or water [employer] threatened to shut off services in your [...] often do you attend chur ch or taoism services? More than 4 times per year 03/13/2024 Do you belong to any clubs o r organizations such as voodoo groups, unions, fraternal or athletic groups, or [...] staff should administer the PHQ-9) 6 08/07/2024 [facility] - Occupational [...] place to sleep or slept in a fdc (including now)? No 10/06/2020 PHQ-9 Answer Date [...] any time in the past 12 m [facility], were you homeless or living in a fdc (including now)? 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 Patient has been scheduled for procedure on Saturday, October 19, 2024 @ 1000am with arrival time to OPS at 0800am. Patient will need to be NPO starting at midnight. Patient is to continue her Aspirin. Patient aware that ATC will be calling to discuss pre- screening and medications. Patient is not diabetic. Post-Op appointment is scheduled on Monday, November 04, 2024 @ 1030am in [facility]. Patient stated she understood procedure instructions and will call office with any questions and/orconcerns. Cardiac Clearance faxed to Dr. Hardy @ [facility] [place] as pt is scheduled on 10/05/24. 10/06/24 - Prior Authorization approval [id number] per [employer]. documented in this encounter Plan of Treatment Upcoming Encounters Date Type Department Care Team (Latest Contact Info) Description 10/19/2024 10:10 AM CDT Hospital Encounter [facility] [place] [address] [place] [address] Uday Luu MD [facility] [address] [place] [address] [place] [address] Pseudoaneurysm 10/19/2024 10:10 AM CDT Anesthesia Event [facility] [place] [address] [place] [address] Betsy Cherry NP [address] [place] [address] 10/19/2024 10:10 AM CDT - 10/19/2024 12:50 PM CDT Surgery [facility] [place] [address] [place] [address] Uday Luu MD [facility] [address] [place] [address] [place] [address]75 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 documented as of this encounter Visit Diagnoses Not on filedocumented in this encounter Care Teams Source Water Protection Specialist Relationship Specialty Start Date End Date Ravindra Rowe MD PCP - General Family Medicine 11/14/16 [place] [address] [place] [address] Surgeon General Surgery 09/30/17 [place] [address] [address] [place] [address] Consulting Physician Cardiology 06/24/18 10/04/24 Liza Major, [place] [address] [address] [place] [address] Nurse Practitioner Nurse Practitioner 07/08/18 10/04/24 [place] [address] [address] [place], [place] [address] Consulting Physician Cardiovascular Disease 07/28/18 [place] [address] [address] [place] [address] Consulting Physician Urology 03/16/20 10/04/24 [place] [address] [address] [place] [address] Consulting Physician Nephrology 03/16/20 10/04/24 [place] [address] [facility] [address] [place] [phone] Referring Physician Livestock Feeder 04/20/24 10/04/24 Gee Hardy MD [address] [facility] [address] [place], [place] [id number] Consulting Physician Cardiology 10/05/24 documented as of this encounter
--- OUTSIDE RECORDS SUMMARY | 2024-10-07 11:30 | XMS_ITS | Continuity of Care Document ---
Author Organization [facility] Address [address] [place] [address] Phone Care Team Providers Care Patient Service Associate Name Role Phone Jaylin [place] MD Unavailable Unavailable Allergies, Adverse Reactions, Alerts Substance Reaction Status Criticality MEPERIDINE HCL Anaphylaxis(severe) Active No Inf ormation CEFAZOLIN SODIUM (moderate) Active No Informat ion Medications Medication Instructions Dosage Effective Dates (start - stop) Status Comments Atorvastatin Calcium Oral Tablet 20 MG TAKE ONE TABLET BY MOUTH EVERY DAY 20 MG - Active Folic Acid Oral Tablet 400 MCG TAKE ONE TABLET BY MOUTH ONE TIME DAILY 0.4 MG - Active cyanocobalamin (vit B-12) 1,000 mcg tablet take 1 by Oral route once DAILY - Active Metoprolol Tartrate Oral Tablet 25 MG TAKE ONE TABLET BY MOUTH TWO TIMES A DAY 25 MG - Active PARoxetine HCl Oral Tablet 20 MG TAKE ONE TABLET BY MOUTH EVERY DAY 20 MG - Active Symbicort 160 mcg-4.5 mcg/actuation HFA aerosol inhaler inhale 2 puff by inhalation route 2 times every day in the morning and evening PRN - Active albuterol sulfate HFA 90 mcg/actuation aerosol inhaler inhale 2 puff by inhalation route 2 times every day as needed 2 puff - Active aspirin 81 mg chewable tablet chew 1 tablet by oral route every day 81 MG - Active morphine ER 15 mg tablet,extended release take 1 tablet by oral route every 12 hours 15 MG - Active Stool Softener 50 mg capsule take 1 capsule by oral route every day at bedtime as needed 50 MG - Active gabapentin 300 mg capsule take 3 Capsule by oral route every day 900 MG - Active clonazepam 1 mg tablet take 0.5 Tablet b y oral route 2 times every day 0.5 MG - Active cyclobenzaprine 10 mg tablet take 1 tablet by oral route 2 times every day 10 MG - Active Advance Directives Directive Yes / No Effective Date File Name No Information Encounters Encounter Description Practice Location Reason(s) For Visit Diagnoses Date Provider Providers Copied on Encounter [facility], [address], [place], [place], [address] , tel: [phone] [facility] No Information 8 MacPhee Jaylin. [address], [facility] [address], [place], [place], [address] , [place]. tel: [phone] [facility], [address], [place], [place], [address] , tel: [phone] [facility] No Information 7 MacPhee Jaylin. [address], [facility] [address], [place], [place], [address] , [place]. tel: [phone] [facility], [address], [place], [place], [address] , tel: [phone] [facility] No Information 7 MacPhee Jaylin. [address], [facility] [address], [place], [place], [address] , [place]. tel: [phone] [facility], [address], [place], [place], [address] , tel: [phone] [facility] No Information 7 MacPhee Jaylin. [address], [facility] [address], [place], [place], [address] , . tel: [phone] [facility], [address], [place], [place], [address] , tel: [phone] [facility] No Information 7 Tatiana Mosqueda. [address], [facility] [address], [place], [address] , [place]. tel: [phone] [facility] [address], [place], [place], [address] , tel: [phone] [facility] Generalized abdominal painFatigue, unspecified typeAnemia, unspecified Nov- Daljit Man. [address] [facility] [address], [place], [place], [address] , . tel: [phone] Referring Provider: Jaylin Simpson, [address] [facility] [address], [place], [address] . tel:[phone] [facility] [address] [address], [place], [place], [address] , tel: [phone] [facility] Dysuria Sep Tatiana oMsqueda. [address], [facility] [address], [place], [address] , [place]. tel: [phone] Referring Provider: Jaylin Simpson, [address] [facility] [address], [place], [address] . tel:[phone] [facility] [address], [place], [place], [address] , tel: [phone] [facility] Urinary tract infection, site unspecifiedPeripher al arterial disease Daljit Man. [address] [facility] [address], [place], [place], [address] , . tel: [phone] Referring Provider: [address] [facility] [address], [place], [address] . tel:[phone] [address] [address], [place], [place], [address] , tel: [phone] [facility] Encounter for screening for other disorderChronic obstructive pulmonary disease, unspecified COPD typeAbnormal chest xrayPeripheral arterial diseaseRheumatoid arthritis involving multiple sites, unspecified rheumatoid factor presenceSmokerMajor depression, recurrent, chronic 6 Tatiana Mos[address], [facility] [address], [place], [address] , [place]. tel: [phone] Referring Provider: Jaylin Simpson, [address] [facility] [address], [place], [address] . tel:[phone] [facility], [address], [place], [place], [address] , tel: [phone] [facility] URI (upper respiratory infection)Smoker 5 Tatiana Mos[address]. [address], [address], [place], [place], [address] , [place]. tel: [phone] Referring Provider: Jaylin Simpson, [address] [facility] [address], [place], [address] . tel:[phone] [facility], [address], [place], [place], [address] , tel: [phone] [facility] Rheumatoid arthritisHyperlipid emiaEssential hypertensionHistory of strokeAnxiety and depressionSmoker 5 Tat[address], [facility] [address], [place], [place], [address] , [place]. tel: [phone] Referring Provider: [address], [address] . tel:[phone] Family History Family Member Type Diagnosis Age At Onset Mother Problem (finding) asthma Father Problem (finding) Non-Hodgkin's lymphoma (Cause Of ) Mother Problem (finding) hypertension Mother Problem (finding) cancer of colon (Cause Of ) 52 Immunizations Vaccine Date Status Comments influenza, injectable, quadrivalent, (3 years or older) refused Source: New Immuniza tion Record influenza, injectable, quadrivalent, (3 years or older) administered Source: Other Erasmo garcia Td (adult) preservative free administered Source: Other Registry Payers Payer name Insurance type Covered republican ID Authoriza tion(s) MEDICARE [id number] [facility] CI [id number] MEDICARE [place] [id number] [facility] CI [id number] Social History Type Description Quantity Date Captured Comments Sex Female Smoking Status No Information Chief Complaint And Reason For Visit No Information Reason For Referral Reason For Referral No Information History Of Present Illness Encounter Date Complaint History Of Prese nt Illness No Information Functional Status Date Functional Assessmen t No Information Instructions Date Instruction Additional Infor mation No Information Assessments Type Assessment Date No Information Patient Care Teams Name Effective Dates (start - stop) Status Members No Information
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
--- OUTSIDE RECORDS SUMMARY | 2024-10-07 11:30 | XMS_ITS | Encounter Summary ---
Author Organization [facility] Healthcare Address [address] [place] [address] Care Team Providers Care Company Tanker Truck Driver Name Role Phone Ravindra Rowe MD Primary Care Provider Darrion Griffith MD Unavailable [phone] Ronen Nunes MD Unavailable [phone] Liza Major NP Unavailable [phone] Juarez Pulido MD Unavailable [phone] Migue Reid MD Unavailable [phone] Carlos Amaya MD Unavailable [phone] Fiorella Oscar MD Unavailable [phone] Gee Hardy MD Unavailable [phone] Encounter Details Date Type Department Care Team (Late st Contact Info) Description 03/18/2024 Telephone [facility] [address] [place] [address] Melissa Brown, RN Social History Tobacco Use Types Packs/Day Years Used Date Smoking Tobacco: Every Day Cigarettes 1.5 59.9 Started: 11/21/1964 Smokeless Tobacco: Never Comments:Smoking History Pac ks/day: 1 1/2 Pack/day. Quit 04/2021, resumed 03/2022 Alcohol Use Standard Drinks/Week Comments No 0 (1 standard drink = 0.6 oz pur e alcohol) [facility] Utilities Answer Date Recorded In the past 12 months has th e electric, gas, oil, or water company threatened to [...] week 03/13/2024 How often do you attend [facility] or episcop[facility] services? More than 4 times per year 03/13/2024 Do you belong to any clubs o r organizations such as gnosticism groups, unions, fraternal or athletic groups, or [...] staff should administer the PHQ-9) 0 01/15/2024 [facility] Occupat ional [facility] - Occupational Stress Questionnaire Answer Date [...] in a jail (including now)? No 10/06/2020 PHQ-9 Answer Date [...] any time in the past 12 m [facility], were you homeless or living in a jail (including now)? 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 file Not on file documented as of this encounter Plan of Treatment Upcoming Encounters Date Type Department Care Team (Latest Contact Info) Description 10/19/2024 10:10 AM CDT Hospital Encounter [facility] [place] [address] [place] [address] Uday Luu MD [facility] [facility] [address] [place] [address] Pseudoaneurysm 10/19/2024 10:10 AM CDT Anesthesia Event [facility] [place] [address] [place] [address] [place] [address] [place] [address] 10/19/2024 10:10 AM CDT - 10/19/2024 12:50 PM CDT Surgery [facility] [place] [address] [place] [address] Uday Luu MD [address] [place] [address] 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 documented as of this encounter Visit Diagnoses Not on filedocumented in this encounter Care Teams Company Tanker Truck Driver Relationship Specialty Start Date End Date Ravindra Rowe MD PCP - General Family Medicine 11/14/16 [place] [address] [place] [address] Surgeon General Surgery 09/30/17 [place] [address] [address] Consulting Physician Cardiology 06/24/18 10/04/24 Liza Major, [place] [address] [address] Nurse Practitioner Nurse Practitioner 07/08/18 10/04/24 [place] [address] [address] Consulting Physician Cardiovascular Disease 07/28/18 [place] [address] [address] Consulting Physician Urology 03/16/20 10/04/24 [place] [address] [address] Consulting Physician Nephrology 03/16/20 10/04/24 [place] [address] [phone] Referring Physician Student Success Coach 04/20/24 10/04/24 Gee Hardy MD [address] [facility] [address] [place] [address] Consulting Physician Cardiology 10/05/24 documented as of this encounter
--- OUTSIDE RECORDS SUMMARY | 2024-10-07 11:32 | XMS_ITS | CONTINUITY OF CARE DOCUMENT ---
Author Name shirley watson Address Unknown Organization [facility] Address [address] [place] [address] [address] [place] [address] Phone [phone] Care Team Providers Care Peer Educator Name Role Phone Kisha Mandel MD Unavailable Jaylin Simpson MD Unavailable Jaylin Simpson MD [...] In-person encounter Office Visit Kisha Mandel MD [facility] Chest pain - In-person encounter Office Visit Kisha Mandel MD [facility] Family History of Hypertension:SOBAbno rmal stress nuclear scanTobacco abuse VITAL SIGNS Date Observation Value Provider Body Mass Index (Ratio) 25.60 kg/m2 Tosha Mandel MD blood pressure, diastolic 70 mm[Hg] Sushma Gazra blood pressure, systolic 166 mm[Hg] Naya Garza [...] [facility] blood pressure, diastolic 70 mm[Hg] [facility] blood pressure, systolic 140 mm[Hg] Naya [facility] [place] pulse rate 74 /min [facility] oxygen saturation, oximetry 97 % [facility] respiratory rate E&M 16 /min [facility] Body Mass Index (Ratio) 25.79 kg/m2 [facility] weight E&M 141 [lb_av] [facility] height E&M 62 [in_i] [facility] ALLERGIES Allergy Name Onset Date Reaction Criticality Status ANCEF Low Criticality active DEMEROL Low Criticality active HISTORY OF MEDICATION USE Medication Status Instructions Dates Provider Indications Com ments RANEXA 500 MG ORAL TABLET EXTENDED RELEASE 12 HOUR active ONE TAB. TWICE DAILY for chronic angina Kisha aMndel MD NITROSTAT 0.4 MG SUBLINGUAL TABLET SUBLINGUAL [...] / Coverage type Florina red democrat ID [facility] [id number] Other [id number] [place] MEDICARE PART B Medicare [id number] ADVANCE DIRECTIVES Name Date DISCUSSED - NO [...] EKG Kisha Mandel MD complet ed SNOMED-CT: [id number] Current Medications Documented Kisha Mandel MD completed SNOMED-CT: [id number] Physical Exam, Performed: Pulse Exam of Foot Kisha Mandel MD completed EKG Kisha Mandel MD complet ed SNOMED-CT: [id number] Current Medications Documented Kisha Mandel MD completed Stress EKG Juarez Morales MD completed Regadenoson, 4 units Juarez Morales MD completed Cardiolite, 2 units Juarez Morales MD completed SPECT Images Juarez Morales MD completed
--- OUTSIDE RECORDS SUMMARY | 2024-10-07 11:32 | XMS_ITS | Continuity of Care Document ---
Author Organization [facility] Address [address] [place] [address] Phone Care Team Providers Care Investigative Research Specialist Name Role Phone Jaylin Simpson MD Unavailable [...] Diagnoses Date Provider Providers Copied on Encounter [facility], [address], [place], [place], [address] , tel: [phone] [facility] No Information 8 MacPhee Jaylin. [address], [facility] [address], [place], [place], [address] , [place]. tel: [phone] [facility], [address], [place], [place], [address] , tel: [phone] [facility] No Information 7 Mac[address]hee Jaylin. [address], [facility] [address], [place], [place], [address] , [place]. tel: [phone] [facility], [address], [place], [place], [address] , tel: [phone] [facility] No Information 7 Mac[address]hee Jaylin. [address], [facility] [address], [place], [place], [address] , [place]. tel: [phone] [facility], [address], [place], [place], [address] , tel: [phone] [facility] No Information 7 MacPhee Jaylin. [address], [facility] [address], [place], [place], [address] , . tel: [phone] [facility], [address], [place], [place], [address] , tel: [phone] [facility] No Information 7 [address]. [address], [facility] [address], [address] , [place]. tel: [phone] [facility] [address], [place], [place], [address] , tel: [phone] [facility] Generalized abdominal painFatigue, unspecified typeAnemia, unspecified Nov- Daljit Man. [address] [facility] [address], [place], [place], [address] , . tel: [phone] Referring Provider: Jaylin Simpson, [address] [facility] [address], [place], [address] . tel:[phone] [facility] [address], [place], [place], [address] , tel: [phone] [facility] Dysuria Sep Tatiana Mosqueda. [address], [facility] [address], [address] , [place]. tel: [phone] Referring Provider: Jaylin Simpson, [address] [facility] [address], [place], [address] . tel:[phone] [facility] [address], [place], [place], [address] , tel: [phone] [facility] Urinary tract infection, site unspecifiedPeripher al arterial disease Daljit Man. [address] [facility] [address], [place], [place], [address] , . tel: [phone] Referring Provider: [address] [facility] [address], [place], [address] . tel:[phone] [facility] [address], [place], [place], [address] , tel: [phone] [facility] Encounter for screening for other disorderChronic obstructive pulmonary disease, unspecified COPD typeAbnormal chest xrayPeripheral arterial diseaseRheumatoid arthritis involving multiple sites, unspecified rheumatoid factor presenceSmokerMajor depression, recurrent, chronic 6 Tatiana [address], [facility] [address], [place], [address] , [place]. tel: [phone] Referring Provider: Jaylin Simpson, [address] [facility] [address], [place], [address] . tel:[phone] [facility], [address], [place], [place], [address] , tel: [phone] [facility] URI (upper respiratory infection)Smoker 5 Tatiana Mos[address]. [address], [address], [place], [place], [address] , [place]. tel: [phone] Referring Provider: Jaylin Simpson, [address] [facility] [address], [address] . tel:[phone] [facility], [address], [place], [place], [address] , tel: [phone] [facility] Rheumatoid arthritisHyperlipid emiaEssential hypertensionHistory of strokeAnxiety and depressionSmoker 5 Tat[address], [facility] [address], [place], [place], [address] , [place]. tel: [phone] Referring Provider: [address], [address] . tel:[phone] Family History Family Member Type Diagnosis Age [...] Registry Payers Payer name Insurance type Covered constitution party ID Authoriza tion(s) MEDICARE [id number] [facility] CI [id number] MEDICARE [place] [id number] [facility] CI [id number] Social History Type Description Quantity Date Captured [...]
== END 2024-10-07 11:17 | disposition home or self-care (01) ==
PROVIDERS: Emergency Provider Nurse Practitioner Family; PCP Family Medicine
DX: H92.01 Otalgia, right ear (principal); I25.10 Atherosclerotic heart disease of native coronary artery without angina pectoris; E78.00 Pure hypercholesterolemia, unspecified; I10 Essential (primary) hypertension; J44.9 Chronic obstructive pulmonary disease, unspecified; K21.9 Gastro-esophageal reflux disease without esophagitis; I72.9 Aneurysm of unspecified site
CPT/HCPCS: 99211; G0463